=== PATIENT | male | born 1940 | race Caucasian/White ===

== ENCOUNTER → 2017-12-02 13:37 | Outpatient (CLI) | payer MEDICARE, MEDICAID, SELFPAY ==
[2017-12-02 14:02] LABS: Abs Immature Grans 0.01 k/cumm (0.0-0.09); Absolute Basophil Count 0.07 k/cumm (0.0-0.2); Absolute Eosinophil Count 0.62 k/cumm (0.0-0.7); Absolute Lymphocyte Count 1.14 k/cumm (1.2-3.4); Absolute Monocyte Count 0.69 k/cumm (0.11-0.7); Absolute Neutrophil Count 4.34 k/cumm (1.2-6.7); HCT 38.6 % (40.0-50.0); HGB 12.3 g/dL (13.5-17.5); Immature Grans % 0.1; Lymphocytes % 16.6; Mean Corp. HGB Concentration 31.9 g/dL (32.0-36.0); Mean Corpuscular Hemoglobin 29.4 pg (27.0-33.0); Mean Corpuscular Volume 92.3 fL (80-95); Mean Platelet Volume 11.7 fL (8.0-11.0); Neutrophils % 63.3; Platelet Count 194 x1000/uL (130-400); RBC 4.18 m/cumm (4.50-6.00); RBC Distribution Width 15.4 % (11.8-14.1); White Blood Cell Count 6.87 k/cumm (4.4-10.8)
[2017-12-02 14:55] LABS: Iron 43 ug/dL (50-175); Total Iron Binding Capacity 309 ug/dL (250-450); Transferrin Sat 14 % (20-55)
[2017-12-02 15:08] LABS: Ferritin 33 ng/mL (8-388)
== END ==
PROVIDERS: PCP Emergency Medicine; Visit Provider Nurse Practitioner Psychiatric/Mental Health
DX: D64.9 Anemia, unspecified (principal); F20.9 Schizophrenia, unspecified; Z79.899 Other long term (current) drug therapy
CPT/HCPCS: 36415; 82728; 83540; 83550; 85025

== ENCOUNTER 2017-12-30 13:53 | Outpatient (CLI) | payer MEDICARE, MEDICAID, SELFPAY ==
[2017-12-30 14:54] LABS: Abs Immature Grans 0.02 k/cumm (0.0-0.09); Absolute Basophil Count 0.06 k/cumm (0.0-0.2); Absolute Eosinophil Count 0.66 k/cumm (0.0-0.7); Absolute Lymphocyte Count 1.24 k/cumm (1.2-3.4); Absolute Monocyte Count 0.77 k/cumm (0.11-0.7); Absolute Neutrophil Count 3.81 k/cumm (1.2-6.7); Basophils % 0.9; Eosinophils % 10.1; HCT 39.9 % (40.0-50.0); HGB 12.4 g/dL (13.5-17.5); Immature Grans % 0.3; Lymphocytes % 18.9; Mean Corp. HGB Concentration 31.1 g/dL (32.0-36.0); Mean Corpuscular Hemoglobin 29.1 pg (27.0-33.0); Mean Corpuscular Volume 93.7 fL (80-95); Mean Platelet Volume 12.3 fL (8.0-11.0); Monocytes % 11.7; Neutrophils % 58.1; Platelet Count 194 x1000/uL (130-400); RBC 4.26 m/cumm (4.50-6.00); RBC Distribution Width 15.4 % (11.8-14.1); White Blood Cell Count 6.56 k/cumm (4.4-10.8)
== END 2017-12-30 14:13 ==
PROVIDERS: Nurse Practitioner Family; PCP Emergency Medicine; Visit Provider Nurse Practitioner Psychiatric/Mental Health
DX: F20.9 Schizophrenia, unspecified (principal); Z79.899 Other long term (current) drug therapy
CPT/HCPCS: 85025

== ENCOUNTER 2018-01-27 13:32 | Outpatient (CLI) | payer MEDICARE, MEDICAID, SELFPAY ==
[2018-01-27 14:00] LABS: Abs Immature Grans 0.02 k/cumm (0.0-0.09); Absolute Basophil Count 0.05 k/cumm (0.0-0.2); Absolute Eosinophil Count 0.47 k/cumm (0.0-0.7); Absolute Lymphocyte Count 0.97 k/cumm (1.2-3.4); Absolute Monocyte Count 0.84 k/cumm (0.11-0.7); Basophils % 0.6; Eosinophils % 5.4; HCT 40.2 % (40.0-50.0); HGB 12.9 g/dL (13.5-17.5); Immature Grans % 0.2; Lymphocytes % 11.1; Mean Corp. HGB Concentration 32.1 g/dL (32.0-36.0); Mean Corpuscular Hemoglobin 30.1 pg (27.0-33.0); Mean Corpuscular Volume 93.9 fL (80-95); Mean Platelet Volume 11.8 fL (8.0-11.0); Monocytes % 9.6; Neutrophils % 73.1; Platelet Count 179 x1000/uL (130-400); RBC 4.28 m/cumm (4.50-6.00); RBC Distribution Width 14.9 % (11.8-14.1); White Blood Cell Count 8.75 k/cumm (4.4-10.8)
== END 2018-01-27 13:52 ==
PROVIDERS: PCP Emergency Medicine; Visit Provider Nurse Practitioner Family
DX: F20.9 Schizophrenia, unspecified (principal); Z79.899 Other long term (current) drug therapy
CPT/HCPCS: 36415; 85025

== ENCOUNTER 2018-02-24 13:43 | Outpatient (CLI) | payer MEDICARE, MEDICAID, SELFPAY ==
[2018-02-24 14:04] LABS: Abs Immature Grans 0.01 k/cumm (0.0-0.09); Absolute Basophil Count 0.06 k/cumm (0.0-0.2); Absolute Eosinophil Count 0.51 k/cumm (0.0-0.7); Absolute Lymphocyte Count 1.16 k/cumm (1.2-3.4); Absolute Monocyte Count 0.76 k/cumm (0.11-0.7); Absolute Neutrophil Count 4.51 k/cumm (1.2-6.7); Basophils % 0.9; Eosinophils % 7.3; HCT 39.7 % (40.0-50.0); HGB 12.7 g/dL (13.5-17.5); Immature Grans % 0.1; Lymphocytes % 16.5; Mean Corpuscular Hemoglobin 30.1 pg (27.0-33.0); Mean Corpuscular Volume 94.1 fL (80-95); Mean Platelet Volume 11.7 fL (8.0-11.0); Monocytes % 10.8; Neutrophils % 64.4; Platelet Count 196 x1000/uL (130-400); RBC 4.22 m/cumm (4.50-6.00); RBC Distribution Width 14.8 % (11.8-14.1); White Blood Cell Count 7.01 k/cumm (4.4-10.8)
[2018-02-24 15:20] LABS: Hemoglobin A1C 5.6 % (4.5-6.2)
[2018-02-24 15:34] LABS: Ferritin 24 ng/mL (8-388)
== END 2018-02-24 14:03 ==
PROVIDERS: PCP Emergency Medicine; Visit Provider Nurse Practitioner Psychiatric/Mental Health
DX: E11.9 Type 2 diabetes mellitus without complications (principal); D64.9 Anemia, unspecified; F20.9 Schizophrenia, unspecified; Z79.899 Other long term (current) drug therapy
CPT/HCPCS: 36415; 82728; 83036; 85025

== ENCOUNTER → 2018-03-19 09:45 | Outpatient (BNVA) | payer MEDICARE, MEDICAID, SELFPAY | PROVIDERS: PCP Emergency Medicine; Visit Provider Internal Medicine Cardiovascular Disease | DX: I25.810 Atherosclerosis of coronary artery bypass graft(s) without angina pectoris (principal); I25.2 Old myocardial infarction; E11.9 Type 2 diabetes mellitus without complications; Z79.84 Long term (current) use of oral hypoglycemic drugs; J44.9 Chronic obstructive pulmonary disease, unspecified; F17.210 Nicotine dependence, cigarettes, uncomplicated; I25.5 Ischemic cardiomyopathy; I73.9 Peripheral vascular disease, unspecified | CPT/HCPCS: 99214 ==

== ENCOUNTER 2018-03-24 14:00 | Outpatient (CLI) | payer MEDICARE, MEDICAID, SELFPAY ==
[2018-03-24 14:37] LABS: Abs Immature Grans 0.02 k/cumm (0.0-0.09); Absolute Basophil Count 0.06 k/cumm (0.0-0.2); Absolute Eosinophil Count 0.63 k/cumm (0.0-0.7); Absolute Monocyte Count 0.77 k/cumm (0.11-0.7); Absolute Neutrophil Count 4.37 k/cumm (1.2-6.7); Basophils % 0.8; Eosinophils % 8.8; HCT 40.1 % (40.0-50.0); HGB 12.8 g/dL (13.5-17.5); Immature Grans % 0.3; Lymphocytes % 18.2; Mean Corp. HGB Concentration 31.9 g/dL (32.0-36.0); Mean Corpuscular Volume 94.1 fL (80-95); Mean Platelet Volume 11.8 fL (8.0-11.0); Monocytes % 10.8; Neutrophils % 61.1; Platelet Count 202 x1000/uL (130-400); RBC 4.26 m/cumm (4.50-6.00); RBC Distribution Width 14.3 % (11.8-14.1); White Blood Cell Count 7.15 k/cumm (4.4-10.8)
== END 2018-03-24 14:20 ==
PROVIDERS: PCP Emergency Medicine; Visit Provider Nurse Practitioner Psychiatric/Mental Health
DX: F20.9 Schizophrenia, unspecified (principal); Z79.899 Other long term (current) drug therapy
CPT/HCPCS: 36415; 85025

== ENCOUNTER 2018-04-22 13:30 | Outpatient (CLI) | payer MEDICARE, MEDICAID, SELFPAY ==
[2018-04-22 14:09] LABS: Abs Immature Grans 0.03 k/cumm (0.0-0.09); Absolute Basophil Count 0.03 k/cumm (0.0-0.2); Absolute Eosinophil Count 0.37 k/cumm (0.0-0.7); Absolute Lymphocyte Count 0.98 k/cumm (1.2-3.4); Absolute Monocyte Count 0.98 k/cumm (0.11-0.7); Absolute Neutrophil Count 5.83 k/cumm (1.2-6.7); Basophils % 0.4; Eosinophils % 4.5; HCT 38.1 % (40.0-50.0); HGB 12.1 g/dL (13.5-17.5); Immature Grans % 0.4; Lymphocytes % 11.9; Mean Corp. HGB Concentration 31.8 g/dL (32.0-36.0); Mean Corpuscular Hemoglobin 29.5 pg (27.0-33.0); Mean Corpuscular Volume 92.9 fL (80-95); Monocytes % 11.9; Neutrophils % 70.9; Platelet Count 278 x1000/uL (130-400); RBC Distribution Width 13.6 % (11.8-14.1); White Blood Cell Count 8.22 k/cumm (4.4-10.8)
== END 2018-04-22 13:50 ==
PROVIDERS: Nurse Practitioner Family; PCP Emergency Medicine; Visit Provider Nurse Practitioner Psychiatric/Mental Health
DX: F20.9 Schizophrenia, unspecified (principal); Z79.899 Other long term (current) drug therapy
CPT/HCPCS: 85025

== ENCOUNTER 2018-05-19 14:09 | Outpatient (CLI) | payer MEDICARE, MEDICAID, SELFPAY ==
[2018-05-19 14:55] LABS: Abs Immature Grans 0.02 k/cumm (0.0-0.09); Absolute Basophil Count 0.06 k/cumm (0.0-0.2); Absolute Eosinophil Count 0.43 k/cumm (0.0-0.7); Absolute Lymphocyte Count 1.14 k/cumm (1.2-3.4); Absolute Monocyte Count 0.47 k/cumm (0.11-0.7); Absolute Neutrophil Count 3.93 k/cumm (1.2-6.7); Eosinophils % 7.1; HCT 39.7 % (40.0-50.0); HGB 12.3 g/dL (13.5-17.5); Immature Grans % 0.3; Lymphocytes % 18.8; Mean Corpuscular Hemoglobin 28.7 pg (27.0-33.0); Mean Corpuscular Volume 92.5 fL (80-95); Mean Platelet Volume 11.2 fL (8.0-11.0); Monocytes % 7.8; Platelet Count 289 x1000/uL (130-400); RBC 4.29 m/cumm (4.50-6.00); RBC Distribution Width 14.3 % (11.8-14.1); White Blood Cell Count 6.05 k/cumm (4.4-10.8)
== END 2018-05-19 14:29 ==
PROVIDERS: PCP Emergency Medicine; Visit Provider Nurse Practitioner Psychiatric/Mental Health
DX: F20.9 Schizophrenia, unspecified (principal); Z79.899 Other long term (current) drug therapy
CPT/HCPCS: 36415; 85025

== ENCOUNTER 2018-06-23 11:32 | Outpatient (CLI) | payer MEDICARE, MEDICAID, SELFPAY ==
[2018-06-23 12:17] LABS: Abs Immature Grans 0.03 k/cumm (0.0-0.09); Absolute Basophil Count 0.03 k/cumm (0.0-0.2); Absolute Eosinophil Count 0.41 k/cumm (0.0-0.7); Absolute Lymphocyte Count 0.92 k/cumm (1.2-3.4); Absolute Monocyte Count 0.72 k/cumm (0.11-0.7); Absolute Neutrophil Count 5.57 k/cumm (1.2-6.7); Basophils % 0.4; Eosinophils % 5.3; HCT 39.7 % (40.0-50.0); HGB 12.4 g/dL (13.5-17.5); Immature Grans % 0.4; Mean Corp. HGB Concentration 31.2 g/dL (32.0-36.0); Mean Corpuscular Hemoglobin 28.8 pg (27.0-33.0); Mean Corpuscular Volume 92.3 fL (80-95); Mean Platelet Volume 11.5 fL (8.0-11.0); Monocytes % 9.4; Neutrophils % 72.5; Platelet Count 265 x1000/uL (130-400); RBC Distribution Width 15.7 % (11.8-14.1); White Blood Cell Count 7.68 k/cumm (4.4-10.8)
[2018-06-23 13:22] LABS: Anion Gap 6.1 mmol/L (3-11); BUN 17 mg/dL (7-18); CO2 32.9 mmol/L (21.0-32.0); CREATININE 1.13 mg/dL (0.70-1.30); Calcium 9.2 mg/dL (8.5-10.1); Chloride 101 mmol/L (98-107); Cholesterol 128 mg/dL (50-200); Glucose 158 mg/dL (70-100); HDL Cholesterol 34 mg/dL (40-60); LDL CHOLESTEROL 72 mg/dL (<100); Potassium 4.3 mmol/L (3.5-5.1); Sodium 140 mmol/L (136-145); Triglyceride 117 mg/dL (30-150)
[2018-06-24 11:15] LABS: PSA, Screening 1.4 ng/ml (0-6.5)
== END 2018-06-23 11:52 ==
PROVIDERS: PCP Emergency Medicine; Referring Provider Emergency Medicine; Visit Provider Nurse Practitioner Psychiatric/Mental Health
DX: F20.9 Schizophrenia, unspecified (principal); Z79.899 Other long term (current) drug therapy; E11.9 Type 2 diabetes mellitus without complications; I10 Essential (primary) hypertension; Z12.5 Encounter for screening for malignant neoplasm of prostate
CPT/HCPCS: 80048; 80061; 83721; 84153; 83036; 85025

== ENCOUNTER → 2018-06-25 12:32 | Outpatient (BNVA) | payer MEDICARE, MEDICAID, SELFPAY | PROVIDERS: PCP Emergency Medicine; Referring Provider Emergency Medicine; Visit Provider Nurse Practitioner Gerontology | DX: R39.15 Urgency of urination (principal); E11.42 Type 2 diabetes mellitus with diabetic polyneuropathy; J44.9 Chronic obstructive pulmonary disease, unspecified; Z79.84 Long term (current) use of oral hypoglycemic drugs; N39.41 Urge incontinence | CPT/HCPCS: 99215 ==

== ENCOUNTER 2018-06-25 12:52 | Outpatient (REF) | payer MEDICARE, MEDICAID, SELFPAY ==
[2018-06-25 13:21] LABS: Bilirubin Negative (Negative); Blood Negative (Negative); Clarity Clear; Glucose Negative (Negative); Ketones Negative (Negative); Leukocyte Esterase Negative (Negative); Nitrite Negative (Negative); Specific Gravity 1.015 (1.005-1.025); Urobilinogen 0.2 EU/dL (Up TO 0.2)
== END 2018-06-25 13:12 ==
LOC: LBN 12:52
PROVIDERS: PCP Emergency Medicine; Visit Provider Emergency Medicine
DX: R30.0 Dysuria (principal)
CPT/HCPCS: 99204; 81003

== ENCOUNTER 2018-07-21 13:50 | Outpatient (CLI) | payer MEDICARE, MEDICAID, SELFPAY ==
[2018-07-21 14:20] LABS: Abs Immature Grans 0.03 k/cumm (0.0-0.09); Absolute Basophil Count 0.07 k/cumm (0.0-0.2); Absolute Eosinophil Count 0.42 k/cumm (0.0-0.7); Absolute Lymphocyte Count 1.19 k/cumm (1.2-3.4); Absolute Monocyte Count 0.65 k/cumm (0.11-0.7); Absolute Neutrophil Count 4.36 k/cumm (1.2-6.7); Eosinophils % 6.3; HCT 40.3 % (40.0-50.0); HGB 12.7 g/dL (13.5-17.5); Immature Grans % 0.4; Lymphocytes % 17.7; Mean Corp. HGB Concentration 31.5 g/dL (32.0-36.0); Mean Corpuscular Hemoglobin 29.3 pg (27.0-33.0); Mean Corpuscular Volume 93.1 fL (80-95); Mean Platelet Volume 11.5 fL (8.0-11.0); Monocytes % 9.7; Neutrophils % 64.9; Platelet Count 239 x1000/uL (130-400); RBC 4.33 m/cumm (4.50-6.00); RBC Distribution Width 15.9 % (11.8-14.1); White Blood Cell Count 6.72 k/cumm (4.4-10.8)
[2018-07-21 15:16] LABS: VALPROIC ACID 48.9 ug/mL (50-100)
[2018-07-21 15:22] LABS: ALT 16 U/L (12-78); AST 20 U/L (15-37); Albumin 3.2 g/dL (3.4-5.0); Alkaline Phosphatase 86 U/L (46-116); Anion Gap 6.9 mmol/L (3-11); BUN 17 mg/dL (7-18); Bilirubin, Total 0.3 mg/dL (0.2-1.0); CO2 31.1 mmol/L (21.0-32.0); CREATININE 1.23 mg/dL (0.70-1.30); Calcium 9.1 mg/dL (8.5-10.1); Chloride 102 mmol/L (98-107); Estimated GFR 56.91 (mL/min/1.73m2); Glucose 133 mg/dL (70-100); Potassium 4.1 mmol/L (3.5-5.1); Sodium 140 mmol/L (136-145); TSH (W/Ref FT4) 1.26 uIU/mL (0.358-3.74); Total Protein 7.3 g/dL (6.4-8.2)
[2018-07-23 08:39] LABS: Clozapine 207 ng/mL (>350); Clozapine+Norclozapine Total 271 ng/mL (>450); Norclozapine 64 ng/mL
== END 2018-07-21 14:10 ==
PROVIDERS: PCP Emergency Medicine; Visit Provider Nurse Practitioner Psychiatric/Mental Health
DX: F25.0 Schizoaffective disorder, bipolar type (principal); Z79.899 Other long term (current) drug therapy; Z51.81 Encounter for therapeutic drug level monitoring
CPT/HCPCS: 36415; 80053; 80159; 80164; 84443; 85025

== ENCOUNTER 2018-08-25 13:16 | Emergency (ER) | payer MEDICARE, MEDICAID, SELFPAY ==
[2018-08-25 13:17] VITALS: BP 112/55; PULSE 89; RESP 17; TEMP 36.7; O2SAT 97
--- NOTE | 2018-08-25 13:47 | NUR.NOTE ---
Nursing Note: This assembly instructions writer assessed this patient. He was able to move all extremities with no difficulty. He had equal accounts payable lead, equal flexion and extension of his lower extremities. He has PERRLA. HE did admit to hitting his head when he fell at home. There is no noted bump on his posterior head or abrasion noted.
--- NOTE | 2018-08-25 15:20 | DI.CT_ITS ---
SYMPTOM/DIAGNOSIS: HEAD INJURY, LEGS GAVE OUT, ? C SPINE FX NONCONTRAST HEAD CT: A noncontrast examination was performed. Comparison is made with 01/07/13. The ventricles and sulci are prominent consistent with the patient's age. 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 No acute infarct, hemorrhage, midline shift or mass effect is identified. The ventricles are intact. The basilar cisterns are patent. The calvarium is intact. There is near complete opacification of the maxillary sinuses and complete opacification of the ethmoid air cells. There is mucosal thickening seen in the sphenoid sinuses and left frontal sinus. There is complete opacification of the right frontal sinus. The mastoid air cells are well pneumatized. IMPRESSION: 1. No acute intracranial process. 2. Extensive paranasal sinusitis. CERVICAL SPINE CT: Multiple contiguous axial images of the cervical spine were obtained. Sagittal and coronal reformatted images were evaluated on the Siemens workstation. There is normal alignment of the cervical spine. No acute fracture or subluxation is identified. Multi level degenerative changes are seen throughout the cervical spine. The findings do result in mild narrowing of the right neural foramen at C 2-3, C 3-4 and C 5-6. The prevertebral soft tissues are unremarkable. IMPRESSION: No acute fracture or subluxation in the cervical spine.
[2018-08-25 16:05] LABS: Abs Immature Grans 0.01 k/cumm (0.0-0.09); Absolute Basophil Count 0.03 k/cumm (0.0-0.2); Absolute Eosinophil Count 0.06 k/cumm (0.0-0.7); Absolute Lymphocyte Count 0.67 k/cumm (1.2-3.4); Absolute Monocyte Count 0.82 k/cumm (0.11-0.7); Absolute Neutrophil Count 3.96 k/cumm (1.2-6.7); Basophils % 0.5; Eosinophils % 1.1; HCT 35.9 % (40.0-50.0); HGB 11.4 g/dL (13.5-17.5); Immature Grans % 0.2; Lymphocytes % 12.1; Mean Corp. HGB Concentration 31.8 g/dL (32.0-36.0); Mean Corpuscular Hemoglobin 28.9 pg (27.0-33.0); Mean Corpuscular Volume 90.9 fL (80-95); Mean Platelet Volume 10.5 fL (8.0-11.0); Monocytes % 14.8; Neutrophils % 71.3; Platelet Count 214 x1000/uL (130-400); RBC 3.95 m/cumm (4.50-6.00); RBC Distribution Width 14.9 % (11.8-14.1); White Blood Cell Count 5.55 k/cumm (4.4-10.8)
[2018-08-25 16:12] LABS: BUN 17 mg/dL (7-18); Calcium 8.8 mg/dL (8.5-10.1); Chloride 102 mmol/L (98-107); Potassium 4.1 mmol/L (3.5-5.1)
[2018-08-25 16:18] LABS: Bilirubin Negative (Negative); Blood Negative (Negative); Clarity Clear; Glucose Negative (Negative); Ketones Negative (Negative); Leukocyte Esterase Negative (Negative); Nitrite Negative (Negative); Urobilinogen 0.2 EU/dL (Up TO 0.2)
[2018-08-25 16:21] LABS: Anion Gap 9.2 mmol/L (3-11); CO2 28.8 mmol/L (21.0-32.0); CREATININE 1.11 mg/dL (0.70-1.30); Glucose 90 mg/dL (70-100); Sodium 140 mmol/L (136-145)
--- NOTE | 2018-08-25 16:52 | ED.GENADUL_ITS ---
Discharge Plan Disposition Patient Disposition: HOME Condition: Good Discharge Details Chief Complaint: Orthopedic Clinical Impression: Closed head injury, Leg weakness Primary Care Provider: João Metz ED Provider: Shama Glover Home Meds and New Rx's Prescriptions: Continued ketoconazole 2 % cream 1 applic TP DAILY RF: 0 polysaccharide iron complex 150 mg iron capsule 150 mg PO DAILY Qty: 90 RF: 3 polyethylene glycol 3350 [Miralax] 17 gram powder in packet 17 g PO DAILY Qty: 1000 RF: 6 blood-glucose meter 1 EACH misc 1 ea Miscellaneous ONCE Qty: 1 RF: 0 OneTouch Ultra Test 1 EACH strip 1 ea Miscellaneous DAILY Qty: 90 RF: 0 blood-glucose meter [OneTouch UltraMini] 1 EACH kit 1 ea Miscellaneous DAILY Qty: 1 RF: 0 albuterol sulfate [Ventolin HFA] 8 GM HFA aerosol inhaler 2 puff Inhalation Q4H PRN Qty: 1 RF: 4 lancets 1 EACH misc 1 ea Miscellaneous DAILY Qty: 100 RF: 3 lancets [OneTouch UltraSoft Lancets] 1 EACH misc 1 ea Miscellaneous DAILY Qty: 90 RF: 3 acetaminophen [Acetaminophen Extra Strength] 500 MG tablet 1,000 mg PO Q6H PRN Qty: 360 RF: 4 multivitamin [Daily Multiple] 1 EACH tablet 1 ea PO DAILY Qty: 90 RF: 3 pantoprazole 40 MG tablet,delayed release (DR/EC) 1 tab PO DAILY Qty: 90 RF: 4 triamcinolone acetonide 80 GM ointment 80 gm Topical BID Qty: 1 RF: 2 metformin 500 MG tablet 500 mg PO BID Qty: 180 RF: 3 furosemide [Lasix] 20 MG tablet 1 tab PO DAILY Qty: 90 RF: 4 clozapine 100 mg tablet 100 mg PO DAILY RF: 0 Blood Glucose Test strip 1 ea Miscellaneous DAILY Qty: 100 RF: 4 docusate sodium [Colace] 100 mg capsule 200 mg PO BID Qty: 180 RF: 4 metoprolol succinate 50 mg tablet extended release 24 hr 50 mg PO DAILY Qty: 90 RF: 4 atorvastatin [Lipitor] 80 mg tablet 80 mg PO HS Qty: 90 RF: 3 ferrous sulfate 325 mg (65 mg iron) tablet 325 mg PO DAILY Qty: 30 RF: 4 cilostazol 100 mg tablet 50 mg PO BID Qty: 90 RF: 3 lisinopril 5 mg tablet 5 mg PO DAILY Qty: 90 RF: 3 tamsulosin [Flomax] 0.4 mg capsule 0.4 mg PO DAILY Qty: 90 RF: 3 nitroglycerin [Nitrostat] 0.4 mg tablet, sublingual 0.4 mg Sublingual PRN Qty: 25 RF: 4 docusate sodium [Colace] 100 mg capsule 100 mg PO DAILY Qty: 90 RF: 3 aspirin [Ecotrin Low Strength] 81 mg tablet,delayed release (DR/EC) 81 mg PO DAILY Qty: 90 RF: 3 divalproex 250 MG tablet,delayed release (DR/EC) 1,000 mg PO HS RF: 0 Discharge Instructions Instructions: Head Injury (ED), Weakness (ED) Additional Instructions: Drink plenty of fluids and get plenty of rest. Call your primary care doctor today to schedule a follow-up appointment for reevaluation. Return immediately to the emergency department with any worsening or new concerning symptoms. Discharge Data Discharge Date/Time-TO BE ENTERED AT DEPARTURE: 08/25/18 19:43 Discharge Physician: Shama Glover Medical Decision Making 78-year-old male with a history of bipolar disorder, CAD, COPD, diabetes, hypertension, schizophrenia who presents the ED with complaint of head injury today. Patient states he was walking when his legs gave out and hit the back of his head on a piece of furniture. No LOC, vomiting, headache or blurry vision. Patient denies any complaints on arrival to the ED per EMS and states he was unsure why he was here as he feels fine. Vitals normal on arrival. No evidence of head trauma, chest or abdominal trauma or extremity trauma. No C-spine/T-spine/L-spine tenderness. No evidence of extremity injury. Chest and abdomen nontender. No focal deficits. Distal pulses intact. Considering patient's age and history, will check screening labs, urinalysis and obtain CT head and cervical spine. 1645 --labs and imaging reviewed and unremarkable. CT head/C-spine negative for acute findings. EKG noted a rate of 82 and sinus with no acute ST findings and no significant change from previous. Pt states he is feeling better requesting to go home. Patient was able to ambulate with his cane in the emergency department which is his baseline. Patient instructed to follow-up with his primary care doctor for reevaluation and return here if worse. Medical Records Medical records reviewed: Yes I reviewed the patient's medical records. Imaging Data Radiologic Study: Radiologist's impression: CT Head Without Contrast EXAM DATE/TIME: 08/25/2018 3:22 PM FINDINGS: Brain: There is a 7 mm old lacunar infarct involving the genu of the right internal capsule and adjacent lentiform nucleus. This appears to extend into the body of the caudate nucleus. There is also a 4 mm old lacunar infarct in the right lentiform nucleus. Ventricles: Normal. No ventriculomegaly. Bones/joints: Unremarkable. No acute fracture. Sinuses: There is severe mucosal thickening in both maxillary sinuses as well as the ethmoidal sinuses. Frontal sinuses are also show severe mucosal thickening worse on the right side Mastoid air cells: Visualized mastoid air cells are unremarkable. No mastoid effusion. Soft tissues: Unremarkable. IMPRESSION: 1. No evidence of an acute infarct or acute adrenal injury. 2. 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 3. Severe maxillary and ethmoidal sinusitis and frontal sinusitis CT Cervical Spine Without Contrast EXAM DATE/TIME: 08/25/2018 3:22 PM FINDINGS: C1-C7 are seen without evidence of an acute fracture subluxation or prevertebral soft tissue swelling. At C2-3 there is mild narrowing of the right neural foramen hypertrophied uncovertebral joint. At C3-4 There is moderate loss of disc height with mild subchondral sclerosis. There is minimal narrowing of the right neural foramen hypertrophied uncovertebral joint. At C4-5 There is prominent hypertrophy of the right facet joint at no significant stenosis At C5-6 There is prominent hypertrophy of the right facet joint minimally narrowing the right neural foramen. At C6-7 there is a mild broad disc osteophyte complex minimally narrowing the neural foramina. Impression: Multilevel degenerative changes but no acute fracture or subluxation Lab Data Lab results reviewed: Yes I reviewed the patient's lab results. Laboratory Tests Range/Units 08/25/18 08/25/18 08/25/18 15:58 15:58 16:10 WBC (4.4-10.8) k/cumm 5.55 RBC (4.50-6.00) m/cumm 3.95 L Hgb (13.5-17.5) g/dL 11.4 L Hct (40.0-50.0) % 35.9 L MCV (80-95) fL 90.9 MCH (27.0-33.0) pg 28.9 MCHC (32.0-36.0) g/dL 31.8 L RDW (11.8-14.1) % 14.9 H Plt Count (130-400) x1000/uL 214 MPV (8.0-11.0) fL 10.5 Immature Gran % 0.2 Neutrophils % 71.3 Lymphocytes % 12.1 Monocytes % 14.8 Eosinophils % 1.1 Basophils % 0.5 Absolute Neutrophils (1.2-6.7) k/cumm 3.96 Absolute Lymphocytes (1.2-3.4) k/cumm 0.67 L Absolute Monocytes (0.11-0.7) k/cumm 0.82 H Absolute Eosinophils (0.0-0.7) k/cumm 0.06 Absolute Basophils (0.0-0.2) k/cumm 0.03 Sodium (136-145) mmol/L 140 Potassium (3.5-5.1) mmol/L 4.1 Chloride (98-107) mmol/L 102 Carbon Dioxide (21.0-32.0) mmol/L 28.8 Anion Gap (3-11) mmol/L 9.2 BUN (7-18) mg/dL 17 Creatinine (0.70-1.30) mg/dL 1.11 Estimated GFR/1.73 m2 (mL/min/1.73m2) >= 60.00 Glucose (70-100) mg/dL 90 Calcium (8.5-10.1) mg/dL 8.8 Urine Color (Yellow) Yellow Urine Clarity Clear Urine pH (5-8) 6.0 Ur Specific Powell (1.005-1.025) 1.010 Urine Protein (Negative) mg/dL Negative Urine Ketones (Negative) mg/dL Negative Urine Blood (Negative) Negative Urine Nitrite (Negative) Negative Urine Bilirubin (Negative) Negative Urine Urobilinogen (Up TO 0.2) EU/dL 0.2 Ur Leukocyte Esterase (Negative) Negative Urine Glucose (Negative) mg/dL Negative ECG Data Attestation: I personally reviewed and interpreted this ECG (s) as follows: Interpretation: Rate of 82, sinus, less than [address] depression in 1 and V5 which is been seen in previous. No acute ST elevation. QTc 418. QRS 110. HPI General Mode of arrival: EMS . Date/Time Provider Initiated Documentation: 08/25/18 13:44 . Limitations to Documentation: no limitations . Information obtained by: patient . HPI Narrative: Patient is a 78-year-old male with a history of schizophrenia, diabetes, COPD, CAD, anemia and peripheral vascular disease who presents the ED status post fall. Patient states he was ambulating when he felt like his legs gave out and he fell backward and hit the back of his head on a piece of furniture. He denies LOC, vomiting, headache, blurry vision. Patient denies any rib pain, back pain, chest pain, abdominal pain or extremity injury or pain. Patient states he feels fine at this time. Related Data Home Medications Medication Instructions Recorded Confirmed blood-glucose meter #1 ea 05/18/14 08/25/18 OneTouch Ultra Test #90 strip 05/19/14 08/25/18 blood-glucose meter [OneTouch #1 kit 06/14/14 08/25/18 UltraMini] albuterol sulfate [Ventolin HFA] 2 puff INHALATION Q4H PRN #1 ea 08/10/14 08/25/18 divalproex 1,000 mg PO HS 05/04/16 08/25/18 lancets #100 ea 05/20/17 08/25/18 lancets [OneTouch UltraSoft #90 ea 05/30/17 08/25/18 Lancets] acetaminophen [Acetaminophen Extra 1,000 mg PO Q6H PRN #360 tab-cap 07/04/17 08/25/18 Strength] multivitamin [Daily Multiple] 1 ea PO DAILY #90 tab-cap 10/07/17 08/25/18 pantoprazole 1 tab PO DAILY #90 tab-cap 10/17/17 08/25/18 triamcinolone acetonide 80 gm TOPICAL BID #1 tub 11/11/17 08/25/18 furosemide [Lasix] 1 tab PO DAILY #90 tab 11/14/17 08/25/18 metformin 500 mg PO BID #180 tab-cap 11/14/17 08/25/18 ketoconazole 2 % topical cream 1 applic TP DAILY 02/10/18 08/25/18 polysaccharide iron complex 150 mg 150 mg PO DAILY #90 cap 02/10/18 08/25/18 iron capsule clozapine 100 mg tablet 100 mg PO DAILY tab-cap 03/19/18 08/25/18 blood sugar diagnostic strips #100 strip 05/26/18 08/25/18 polyethylene glycol 3350 17 gram 17 g PO DAILY #1000 gm 06/09/18 08/25/18 oral powder packet docusate sodium 100 mg capsule 200 mg PO BID #180 cap 06/11/18 08/25/18 metoprolol succinate ER 50 mg 50 mg PO DAILY #90 tab 06/18/18 08/25/18 tablet,extended release 24 hr atorvastatin 80 mg tablet 80 mg PO HS #90 tab-cap 06/19/18 08/25/18 ferrous sulfate 325 mg (65 mg 325 mg PO DAILY #30 tab 07/07/18 08/25/18 iron) tablet cilostazol 100 mg tablet 50 mg PO BID #90 tab-cap 07/14/18 08/25/18 lisinopril 5 mg tablet 5 mg PO DAILY #90 tab-cap 07/14/18 08/25/18 tamsulosin 0.4 mg capsule 0.4 mg PO DAILY #90 cap 07/16/18 08/25/18 nitroglycerin 0.4 mg sublingual 0.4 mg SUBLINGUAL PRN #25 tab 07/20/18 08/25/18 tablet aspirin 81 mg tablet,delayed 81 mg PO DAILY #90 tab 08/21/18 08/25/18 release docusate sodium 100 mg capsule 100 mg PO DAILY #90 cap 08/21/18 08/25/18 Previous Rx's Medication Instructions Recorded lancets #100 ea 05/20/17 lancets [OneTouch UltraSoft #90 ea 05/30/17 Lancets] acetaminophen [Acetaminophen Extra 1,000 mg PO Q6H PRN #360 tab-cap 07/04/17 Strength] multivitamin [Daily Multiple] 1 ea PO DAILY #90 tab-cap 10/07/17 pantoprazole 1 tab PO DAILY #90 tab-cap 10/17/17 triamcinolone acetonide 80 gm TOPICAL BID #1 tub 11/11/17 furosemide [Lasix] 1 tab PO DAILY #90 tab 11/14/17 metformin 500 mg PO BID #180 tab-cap 11/14/17 polysaccharide iron complex 150 mg 150 mg PO DAILY #90 cap 02/10/18 iron capsule blood sugar diagnostic strips #100 strip 05/26/18 polyethylene glycol 3350 17 gram 17 g PO DAILY #1000 gm 06/09/18 oral powder packet docusate sodium 100 mg capsule 200 mg PO BID #180 cap 06/11/18 metoprolol succinate ER 50 mg 50 mg PO DAILY #90 tab 06/18/18 tablet,extended release 24 hr atorvastatin 80 mg tablet 80 mg PO HS #90 tab-cap 06/19/18 ferrous sulfate 325 mg (65 mg 325 mg PO DAILY #30 tab 07/07/18 iron) tablet cilostazol 100 mg tablet 50 mg PO BID #90 tab-cap 07/14/18 lisinopril 5 mg tablet 5 mg PO DAILY #90 tab-cap 07/14/18 tamsulosin 0.4 mg capsule 0.4 mg PO DAILY #90 cap 07/16/18 nitroglycerin 0.4 mg sublingual 0.4 mg SUBLINGUAL PRN #25 tab 07/20/18 tablet aspirin 81 mg tablet,delayed 81 mg PO DAILY #90 tab 08/21/18 release docusate sodium 100 mg capsule 100 mg PO DAILY #90 cap 08/21/18 Allergies Allergy/AdvReac Type Severity Reaction Status Date / Time egg Allergy Unknown Verified 06/09/18 12:59 meperidine HCl [From Demerol] Allergy Unknown Verified 06/09/18 12:59 meperidine AdvReac Intermediate HYPERACTIVE Verified 06/09/18 12:59 acetaminophen AdvReac Mild HEAD AND Verified 06/09/18 12:59 CHEST CONGESTION General Stated Complaint: Orthopedic KIMBERLEE: 3 Review of Systems Review of Systems All systems reviewed & are unremarkable except as noted in HPI and below Constitutional Reports as per HPI, Denies chills and Denies fever(s) Eyes Denies blurry vision ENT Denies dizziness, Denies sore throat and Denies throat swelling Cardiovascular Denies chest pain and Denies dyspnea Respiratory Denies cough and Denies dyspnea Gastrointestinal Denies abdominal pain, Denies diarrhea and Denies vomiting Genitourinary Denies hematuria and Denies dysuria Musculoskeletal Denies back pain and Denies numbness Integumentary/Breasts Denies lesions and Denies rash Neurologic Denies dizziness, Denies focal weakness and Denies numbness Allergic/Immunologic Denies throat swelling [facility] Medical History Total urinary incontinence (Acute 12/02/07) Smoker (Acute) Schizophrenia (Acute 10/19/13) Right leg claudication (Acute 09/06/14) Peripheral vascular disease (Acute 12/02/07) Peripheral neuralgia (Acute 12/02/07) 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) Non-compliance (Acute 10/19/13) Left leg claudication (Acute 09/06/14) Diabetes mellitus (Acute) Chronic obstructive lung disease (Acute 12/02/07) Cataract (Acute) Coronary atherosclerosis of [place] coronary vessel (Acute 12/02/07) Atherosclerosis of [place] coronary artery (Acute 12/02/07) Anemia (Acute 03/11/12) Threatening behavior (Active 10/23/12) Surgical History Appendectomy Cholecystectomy Colonoscopy - MAC Coronary Artery Bypass [place] (CABG) HERNIA REPAIR Social History Smoking/Tobacco Use Status: Current every day Drug use: Never Do you feel safe at home: Yes Do you feel safe in your relationship?: Yes Exam Const General: cooperative, healthy appearing and no acute distress HENMT Head: normal to inspection Face and sinus: normal facial exam Eyes General: appearance normal, both eyes and all related structures Pupils: PERRL EOM: EOM intact bilaterally Neck Neck: normal visual inspection and No submandibular swelling Lymphatic: no lymphadenopathy noted Chest Chest: normal inspection of the chest and no tenderness Resp Effort & Inspection: normal respiratory effort and able to speak in complete sentences Auscultation: clear to auscultation bilaterally Cardio Rate: regular rate Rhythm: regular rhythm GI Inspection: normal to inspection Palpation: soft, not firm, not rigid and nontender Auscultation: normal bowel sounds Male General Exam: Yes normal external exam Back/Spine/Pelvis Cervical Spine: No cervical spinal tenderness Thoracic/Lumbar Spine: thoracic and lumbar spine normal to inspection, No thoracic spinal tenderness and No lumbar spinal tenderness Pelvis: no pain with anterior-posterior compression Skin General skin exam: no rashes or lesions noted Neuro General: alert, awake and oriented x3 Cranial Nerves: CN's II-XI intact bilaterally Cognition: normal cognition Speech: speech normal Motor: muscle tone normal throughout and strength 5/5 throughout Sensory Exam: no sensory deficits noted DTR's: Rt Patellar: 1+, Lt Patellar: 1+, Rt Ankle: 1+ and Lt Ankle: 1+ Plantar Reflexes: Equivocal: bilateral Extrem General: normal to inspection, full ROM, no edema and other (no pain with ROM or tenderness to palpation of b/l UE/LE) Psych Appearance: grossly normal Mental Status: mental status grossly normal Speech and Movement: speech and movement normal Affect: normal affect Course Vital Signs Temperature 98.1 F 08/25/18 13:17 Pulse 89 08/25/18 13:17 Respiratory Rate 17 08/25/18 13:17 Blood Pressure 112/55 L 08/25/18 13:17 Pulse Oximetry 97 08/25/18 13:17 Temperature 98.1 F 08/25/18 13:17 Temperature Source Temporal Artery Scan 08/25/18 13:17 Pulse 89 08/25/18 13:17 Respiratory Rate 17 08/25/18 13:17 Respiratory Effort Non-Labored 08/25/18 13:20 Blood Pressure 112/55 L 08/25/18 13:17 Blood Pressure Position Supine 08/25/18 13:17 Pulse Oximetry 97 08/25/18 13:17 Oxygen Delivery Method Room Air 08/25/18 13:17 Oxygen Flow Rate 0 08/25/18 13:17 Pain Level 0 08/25/18 14:41 Lab/Test Results Lab/Test Results: Laboratory Tests Range/Units 08/25/18 08/25/18 08/25/18 15:58 15:58 16:10 WBC (4.4-10.8) k/cumm 5.55 RBC (4.50-6.00) m/cumm 3.95 L Hgb (13.5-17.5) g/dL 11.4 L Hct (40.0-50.0) % 35.9 L MCV (80-95) fL 90.9 MCH (27.0-33.0) pg 28.9 MCHC (32.0-36.0) g/dL 31.8 L RDW (11.8-14.1) % 14.9 H Plt Count (130-400) x1000/uL 214 MPV (8.0-11.0) fL 10.5 Immature Gran % 0.2 Neutrophils % 71.3 Lymphocytes % 12.1 Monocytes % 14.8 Eosinophils % 1.1 Basophils % 0.5 Absolute Neutrophils (1.2-6.7) k/cumm 3.96 Absolute Lymphocytes (1.2-3.4) k/cumm 0.67 L Absolute Monocytes (0.11-0.7) k/cumm 0.82 H Absolute Eosinophils (0.0-0.7) k/cumm 0.06 Absolute Basophils (0.0-0.2) k/cumm 0.03 Sodium (136-145) mmol/L 140 Potassium (3.5-5.1) mmol/L 4.1 Chloride (98-107) mmol/L 102 Carbon Dioxide (21.0-32.0) mmol/L 28.8 Anion Gap (3-11) mmol/L 9.2 BUN (7-18) mg/dL 17 Creatinine (0.70-1.30) mg/dL 1.11 Estimated GFR/1.73 m2 (mL/min/1.73m2) >= 60.00 Glucose (70-100) mg/dL 90 Calcium (8.5-10.1) mg/dL 8.8 Urine Color (Yellow) Yellow Urine Clarity Clear Urine pH (5-8) 6.0 Ur Specific Powell (1.005-1.025) 1.010 Urine Protein (Negative) mg/dL Negative Urine Ketones (Negative) mg/dL Negative Urine Blood (Negative) Negative Urine Nitrite (Negative) Negative Urine Bilirubin (Negative) Negative Urine Urobilinogen (Up TO 0.2) EU/dL 0.2 Ur Leukocyte Esterase (Negative) Negative Urine Glucose (Negative) mg/dL Negative
--- NOTE | 2018-08-25 17:03 | DI.VRAD_ITS ---
EXAM: CT Head Without Contrast EXAM DATE/TIME: 08/25/2018 3:22 PM CLINICAL HISTORY: 78 years old, male; Injury or trauma; Fall; Initial encounter; Blunt trauma TECHNIQUE: Imaging protocol: Axial computed tomography images of the head/brain without contrast. Coronal and sagittal reformatted images were created and reviewed. COMPARISON: CT HEAD WITHOUT CONTRAST 01/07/2013 12:57 PM FINDINGS: Brain: There is a 7 mm old lacunar infarct involving the genu of the right internal capsule and adjacent lentiform nucleus. This appears to extend into the body of the caudate nucleus. There is also a 4 mm old lacunar infarct in the right lentiform nucleus. Ventricles: Normal. No ventriculomegaly. Bones/joints: Unremarkable. No acute fracture. Sinuses: There is severe mucosal thickening in both maxillary sinuses as well as the ethmoidal sinuses. Frontal sinuses are also show severe mucosal thickening worse on the right side Mastoid air cells: Visualized mastoid air cells are unremarkable. No mastoid effusion. Soft tissues: Unremarkable. IMPRESSION: 1. No evidence of an acute infarct or acute adrenal injury. 2. 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 3. Severe maxillary and ethmoidal sinusitis and frontal sinusitis EXAM: CT Cervical Spine Without Contrast EXAM DATE/TIME: 08/25/2018 3:22 PM CLINICAL HISTORY: 78 years old, male; Injury or trauma; Fall; Initial encounter; Blunt trauma TECHNIQUE: Imaging protocol: Axial computed tomography images of the cervical spine without contrast. Coronal and sagittal reformatted images were created and reviewed. COMPARISON: CT HEAD WITHOUT CONTRAST 01/07/2013 12:57 PM FINDINGS: C1-C7 are seen without evidence of an acute fracture subluxation or prevertebral soft tissue swelling. At C2-3 there is mild narrowing of the right neural foramen hypertrophied uncovertebral joint. At C3-4 There is moderate loss of disc height with mild subchondral sclerosis. There is minimal narrowing of the right neural foramen hypertrophied uncovertebral joint. At C4-5 There is prominent hypertrophy of the right facet joint at no significant stenosis At C5-6 There is prominent hypertrophy of the right facet joint minimally narrowing the right neural foramen. At C6-7 there is a mild broad disc osteophyte complex minimally narrowing the neural foramina. Impression: Multilevel degenerative changes but no acute fracture or subluxation Dictated and Authenticated by: Rudy Trejo MD. Ordering:PATRICIA Sesay MD
== END 2018-08-25 19:43 | disposition home or self-care (01) ==
PROVIDERS: Emergency Provider Physician Assistant; PCP Emergency Medicine
DX: S09.90XA Unspecified injury of head, initial encounter (principal); R53.1 Weakness; J01.00 Acute maxillary sinusitis, unspecified; J01.10 Acute frontal sinusitis, unspecified; J44.9 Chronic obstructive pulmonary disease, unspecified; F17.210 Nicotine dependence, cigarettes, uncomplicated; I10 Essential (primary) hypertension; E11.9 Type 2 diabetes mellitus without complications; W01.190A Fall on same level from slipping, tripping and stumbling with subsequent striking against furniture, initial encounter
CPT/HCPCS: 36415; 80048; 93005; 99285; 70450; 72125; 81003; 85025; 93010

== ENCOUNTER → 2018-09-01 13:02 | Outpatient (BNVA) | payer MEDICARE, MEDICAID, SELFPAY | PROVIDERS: PCP Emergency Medicine; Visit Provider Nurse Practitioner Gerontology | DX: R39.9 Unspecified symptoms and signs involving the genitourinary system (principal) | CPT/HCPCS: 81003; 99213 ==

== ENCOUNTER 2018-09-25 13:15 | Outpatient (CLI) | payer MEDICARE, MEDICAID, SELFPAY ==
[2018-09-25 13:45] LABS: Abs Immature Grans 0.03 k/cumm (0.0-0.09); Absolute Basophil Count 0.04 k/cumm (0.0-0.2); Absolute Eosinophil Count 0.27 k/cumm (0.0-0.7); Absolute Lymphocyte Count 1.19 k/cumm (1.2-3.4); Absolute Monocyte Count 0.74 k/cumm (0.11-0.7); Absolute Neutrophil Count 4.31 k/cumm (1.2-6.7); Basophils % 0.6; Eosinophils % 4.1; HCT 36.4 % (40.0-50.0); HGB 11.2 g/dL (13.5-17.5); Immature Grans % 0.5; Lymphocytes % 18.1; Mean Corp. HGB Concentration 30.8 g/dL (32.0-36.0); Mean Corpuscular Hemoglobin 27.9 pg (27.0-33.0); Mean Corpuscular Volume 90.8 fL (80-95); Mean Platelet Volume 10.9 fL (8.0-11.0); Monocytes % 11.2; Neutrophils % 65.5; Platelet Count 240 x1000/uL (130-400); RBC 4.01 m/cumm (4.50-6.00); RBC Distribution Width 15.4 % (11.8-14.1); White Blood Cell Count 6.58 k/cumm (4.4-10.8)
== END 2018-09-25 13:35 ==
PROVIDERS: PCP Emergency Medicine; Visit Provider Nurse Practitioner Psychiatric/Mental Health
DX: F20.9 Schizophrenia, unspecified (principal); Z79.899 Other long term (current) drug therapy
CPT/HCPCS: 36415; 85025

== ENCOUNTER 2018-10-26 11:01 | Outpatient (CLI) | payer MEDICARE, MEDICAID, SELFPAY ==
[2018-10-26 11:45] LABS: Abs Immature Grans 0.02 k/cumm (0.0-0.09); Absolute Basophil Count 0.06 k/cumm (0.0-0.2); Absolute Lymphocyte Count 1.06 k/cumm (1.2-3.4); Absolute Monocyte Count 0.62 k/cumm (0.11-0.7); Absolute Neutrophil Count 3.57 k/cumm (1.2-6.7); Eosinophils % 8.6; HCT 39.5 % (40.0-50.0); HGB 12.4 g/dL (13.5-17.5); Immature Grans % 0.3; Lymphocytes % 18.2; Mean Corp. HGB Concentration 31.4 g/dL (32.0-36.0); Mean Corpuscular Hemoglobin 29.1 pg (27.0-33.0); Mean Corpuscular Volume 92.7 fL (80-95); Monocytes % 10.6; Neutrophils % 61.3; Platelet Count 182 x1000/uL (130-400); RBC 4.26 m/cumm (4.50-6.00); RBC Distribution Width 17.2 % (11.8-14.1); White Blood Cell Count 5.83 k/cumm (4.4-10.8)
[2018-10-26 12:39] LABS: Iron 102 ug/dL (50-175); Total Iron Binding Capacity 303 ug/dL (250-450); Transferrin Sat 34 % (20-55)
[2018-10-26 13:09] LABS: Ferritin 24 ng/mL (8-388); Folate 19.9 ng/mL (8.6-20.0); Vitamin B12 728 pg/mL (193-986)
[2018-10-26 13:23] LABS: C-Reactive Protein 0.31 mg/dL (0.0-0.3)
== END 2018-10-26 11:21 ==
PROVIDERS: PCP Emergency Medicine; Visit Provider Nurse Practitioner Psychiatric/Mental Health
DX: D64.9 Anemia, unspecified (principal); F20.9 Schizophrenia, unspecified; Z79.899 Other long term (current) drug therapy
CPT/HCPCS: 36415; 82607; 82728; 82746; 83540; 83550; 85025; 86140

== ENCOUNTER → 2018-11-12 11:37 | Outpatient (BNVA) | payer MEDICARE, MEDICAID, SELFPAY | PROVIDERS: PCP Emergency Medicine; Visit Provider Internal Medicine Cardiovascular Disease | DX: I25.10 Atherosclerotic heart disease of native coronary artery without angina pectoris (principal); I73.9 Peripheral vascular disease, unspecified; F17.210 Nicotine dependence, cigarettes, uncomplicated; E11.9 Type 2 diabetes mellitus without complications; J44.9 Chronic obstructive pulmonary disease, unspecified | CPT/HCPCS: 99213 ==

== ENCOUNTER 2018-12-15 15:20 | Outpatient (CLI) | payer MEDICARE, MEDICAID, SELFPAY ==
[2018-12-15 16:00] LABS: VALPROIC ACID 53.7 ug/mL (50-100)
[2018-12-15 16:58] LABS: Abs Immature Grans 0.02 k/cumm (0.0-0.09); Absolute Basophil Count 0.06 k/cumm (0.0-0.2); Absolute Eosinophil Count 0.36 k/cumm (0.0-0.7); Absolute Lymphocyte Count 1.33 k/cumm (1.2-3.4); Absolute Monocyte Count 0.78 k/cumm (0.11-0.7); Basophils % 0.9; Eosinophils % 5.3; HCT 41.4 % (40.0-50.0); HGB 13.3 g/dL (13.5-17.5); Immature Grans % 0.3; Lymphocytes % 19.4; Mean Corp. HGB Concentration 32.1 g/dL (32.0-36.0); Mean Corpuscular Hemoglobin 29.7 pg (27.0-33.0); Mean Corpuscular Volume 92.4 fL (80-95); Mean Platelet Volume 12.1 fL (8.0-11.0); Monocytes % 11.4; Neutrophils % 62.7; Platelet Count 233 x1000/uL (130-400); RBC 4.48 m/cumm (4.50-6.00); RBC Distribution Width 15.6 % (11.8-14.1); White Blood Cell Count 6.85 k/cumm (4.4-10.8)
== END 2018-12-15 15:40 ==
PROVIDERS: PCP Emergency Medicine; Visit Provider Nurse Practitioner Psychiatric/Mental Health
DX: F25.0 Schizoaffective disorder, bipolar type (principal); Z51.81 Encounter for therapeutic drug level monitoring; Z79.899 Other long term (current) drug therapy
CPT/HCPCS: 36415; 80164; 85025

== ENCOUNTER 2019-01-11 10:42 | Outpatient (CLI) | payer MEDICARE, MEDICAID, SELFPAY ==
[2019-01-11 11:06] LABS: Abs Immature Grans 0.01 k/cumm (0.0-0.09); Absolute Basophil Count 0.07 k/cumm (0.0-0.2); Absolute Eosinophil Count 0.37 k/cumm (0.0-0.7); Absolute Lymphocyte Count 0.94 k/cumm (1.2-3.4); Absolute Monocyte Count 0.72 k/cumm (0.11-0.7); Absolute Neutrophil Count 4.76 k/cumm (1.2-6.7); Eosinophils % 5.4; HCT 39.8 % (40.0-50.0); HGB 12.7 g/dL (13.5-17.5); Immature Grans % 0.1; Lymphocytes % 13.7; Mean Corp. HGB Concentration 31.9 g/dL (32.0-36.0); Mean Corpuscular Volume 94.1 fL (80-95); Mean Platelet Volume 11.3 fL (8.0-11.0); Monocytes % 10.5; Neutrophils % 69.3; Platelet Count 207 x1000/uL (130-400); RBC 4.23 m/cumm (4.50-6.00); RBC Distribution Width 14.7 % (11.8-14.1); White Blood Cell Count 6.87 k/cumm (4.4-10.8)
== END 2019-01-11 11:02 ==
PROVIDERS: PCP Emergency Medicine; Visit Provider Nurse Practitioner Psychiatric/Mental Health
DX: F20.9 Schizophrenia, unspecified (principal); Z79.899 Other long term (current) drug therapy
CPT/HCPCS: 36415; 85025

== ENCOUNTER 2019-02-18 12:33 | Outpatient (CLI) | payer MEDICARE, MEDICAID, SELFPAY ==
[2019-02-18 13:03] LABS: Abs Immature Grans 0.03 k/cumm (0.0-0.09); Absolute Basophil Count 0.06 k/cumm (0.0-0.2); Absolute Eosinophil Count 0.28 k/cumm (0.0-0.7); Absolute Lymphocyte Count 1.08 k/cumm (1.2-3.4); Absolute Monocyte Count 0.76 k/cumm (0.11-0.7); Absolute Neutrophil Count 5.16 k/cumm (1.2-6.7); Basophils % 0.8; Eosinophils % 3.8; HCT 41.2 % (40.0-50.0); Immature Grans % 0.4; Lymphocytes % 14.7; Mean Corp. HGB Concentration 31.6 g/dL (32.0-36.0); Mean Corpuscular Hemoglobin 30.1 pg (27.0-33.0); Mean Corpuscular Volume 95.4 fL (80-95); Mean Platelet Volume 11.4 fL (8.0-11.0); Monocytes % 10.3; Platelet Count 211 x1000/uL (130-400); RBC 4.32 m/cumm (4.50-6.00); White Blood Cell Count 7.37 k/cumm (4.4-10.8)
== END 2019-02-18 12:53 ==
PROVIDERS: PCP Emergency Medicine; Visit Provider Nurse Practitioner Psychiatric/Mental Health
DX: F20.9 Schizophrenia, unspecified (principal); Z79.899 Other long term (current) drug therapy
CPT/HCPCS: 36415; 85025

== ENCOUNTER 2019-03-09 12:49 | Outpatient (CLI) | payer MEDICARE, MEDICAID, SELFPAY ==
[2019-03-09 13:31] LABS: Abs Immature Grans 0.03 k/cumm (0.0-0.09); Absolute Basophil Count 0.05 k/cumm (0.0-0.2); Absolute Eosinophil Count 0.26 k/cumm (0.0-0.7); Absolute Lymphocyte Count 1.35 k/cumm (1.2-3.4); Absolute Neutrophil Count 5.21 k/cumm (1.2-6.7); Basophils % 0.6; Eosinophils % 3.3; HCT 42.1 % (40.0-50.0); HGB 13.2 g/dL (13.5-17.5); Immature Grans % 0.4; Lymphocytes % 17.3; Mean Corp. HGB Concentration 31.4 g/dL (32.0-36.0); Mean Corpuscular Hemoglobin 30.3 pg (27.0-33.0); Mean Corpuscular Volume 96.8 fL (80-95); Mean Platelet Volume 11.8 fL (8.0-11.0); Monocytes % 11.5; Neutrophils % 66.9; Platelet Count 208 x1000/uL (130-400); RBC 4.35 m/cumm (4.50-6.00); RBC Distribution Width 14.1 % (11.8-14.1)
== END 2019-03-09 13:09 ==
LOC: LBN 12:51 → LBO 12:52
PROVIDERS: PCP Emergency Medicine; Visit Provider Nurse Practitioner Psychiatric/Mental Health
DX: F20.9 Schizophrenia, unspecified (principal); Z79.899 Other long term (current) drug therapy
CPT/HCPCS: 36415; 85025

== ENCOUNTER 2019-04-09 13:02 | Outpatient (CLI) | payer MEDICARE, MEDICAID, SELFPAY ==
[2019-04-09 13:27] LABS: Abs Immature Grans 0.02 k/cumm (0.0-0.09); Absolute Basophil Count 0.05 k/cumm (0.0-0.2); Absolute Eosinophil Count 0.37 k/cumm (0.0-0.7); Absolute Lymphocyte Count 1.28 k/cumm (1.2-3.4); Absolute Monocyte Count 0.71 k/cumm (0.11-0.7); Absolute Neutrophil Count 4.28 k/cumm (1.2-6.7); Basophils % 0.7; Eosinophils % 5.5; HCT 42.6 % (40.0-50.0); HGB 13.4 g/dL (13.5-17.5); Immature Grans % 0.3; Lymphocytes % 19.1; Mean Corp. HGB Concentration 31.5 g/dL (32.0-36.0); Mean Corpuscular Hemoglobin 30.5 pg (27.0-33.0); Mean Platelet Volume 11.5 fL (8.0-11.0); Monocytes % 10.6; Neutrophils % 63.8; Platelet Count 219 x1000/uL (130-400); RBC 4.39 m/cumm (4.50-6.00); RBC Distribution Width 13.8 % (11.8-14.1); White Blood Cell Count 6.71 k/cumm (4.4-10.8)
[2019-04-09 13:34] LABS: VALPROIC ACID 34.4 ug/mL (50-100)
[2019-04-09 14:34] LABS: Ferritin 32 ng/mL (26-388)
== END 2019-04-09 13:22 ==
PROVIDERS: PCP Emergency Medicine; Visit Provider Nurse Practitioner Psychiatric/Mental Health
DX: D64.9 Anemia, unspecified (principal); E11.9 Type 2 diabetes mellitus without complications; F25.0 Schizoaffective disorder, bipolar type; Z51.81 Encounter for therapeutic drug level monitoring; Z79.899 Other long term (current) drug therapy; F20.9 Schizophrenia, unspecified
CPT/HCPCS: 80164; 82728; 83036; 85025

== ENCOUNTER 2019-05-07 10:29 | Outpatient (CLI) | payer MEDICARE, MEDICAID, SELFPAY ==
[2019-05-07 10:51] LABS: Abs Immature Grans 0.03 k/cumm (0.0-0.09); Absolute Basophil Count 0.05 k/cumm (0.0-0.2); Absolute Eosinophil Count 0.32 k/cumm (0.0-0.7); Absolute Lymphocyte Count 1.02 k/cumm (1.2-3.4); Absolute Monocyte Count 0.92 k/cumm (0.11-0.7); Absolute Neutrophil Count 6.77 k/cumm (1.2-6.7); Basophils % 0.5; Eosinophils % 3.5; HCT 40.9 % (40.0-50.0); Immature Grans % 0.3 %; Lymphocytes % 11.2; Mean Corp. HGB Concentration 31.8 g/dL (32.0-36.0); Mean Corpuscular Volume 97.4 fL (80-95); Mean Platelet Volume 11.5 fL (8.0-11.0); Monocytes % 10.1; Neutrophils % 74.4; Platelet Count 203 x1000/uL (130-400); RBC Distribution Width 13.8 % (11.8-14.1); White Blood Cell Count 9.11 k/cumm (4.4-10.8)
== END 2019-05-07 10:49 ==
PROVIDERS: PCP Emergency Medicine; Visit Provider Nurse Practitioner Psychiatric/Mental Health
DX: F20.9 Schizophrenia, unspecified (principal); Z79.899 Other long term (current) drug therapy
CPT/HCPCS: 36415; 85025

== ENCOUNTER 2019-06-08 13:25 | Outpatient (CLI) | payer MEDICARE, MEDICAID, SELFPAY ==
[2019-06-08 13:52] LABS: Abs Immature Grans 0.03 k/cumm (0.0-0.09); Absolute Basophil Count 0.04 k/cumm (0.0-0.2); Absolute Eosinophil Count 0.33 k/cumm (0.0-0.7); Absolute Lymphocyte Count 1.27 k/cumm (1.2-3.4); Absolute Monocyte Count 0.72 k/cumm (0.11-0.7); Absolute Neutrophil Count 4.29 k/cumm (1.2-6.7); Basophils % 0.6; Eosinophils % 4.9; Immature Grans % 0.4 %; Mean Corp. HGB Concentration 31.6 g/dL (32.0-36.0); Mean Corpuscular Hemoglobin 30.4 pg (27.0-33.0); Mean Corpuscular Volume 96.2 fL (80-95); Mean Platelet Volume 11.2 fL (8.0-11.0); Monocytes % 10.8; Neutrophils % 64.3; Platelet Count 203 x1000/uL (130-400); RBC 3.95 m/cumm (4.50-6.00); RBC Distribution Width 13.3 % (11.8-14.1); White Blood Cell Count 6.68 k/cumm (4.4-10.8)
== END 2019-06-08 13:45 ==
PROVIDERS: PCP Emergency Medicine; Visit Provider Nurse Practitioner Psychiatric/Mental Health
DX: F20.9 Schizophrenia, unspecified (principal); Z79.899 Other long term (current) drug therapy
CPT/HCPCS: 36415; 85025

== ENCOUNTER → 2019-06-14 14:39 | Outpatient (BNVA) | payer MEDICARE, MEDICAID, SELFPAY | PROVIDERS: PCP Emergency Medicine; Referring Provider Emergency Medicine; Visit Provider Internal Medicine Cardiovascular Disease | DX: I25.10 Atherosclerotic heart disease of native coronary artery without angina pectoris (principal); Z95.1 Presence of aortocoronary bypass graft; E11.9 Type 2 diabetes mellitus without complications; J44.9 Chronic obstructive pulmonary disease, unspecified; Z95.5 Presence of coronary angioplasty implant and graft | CPT/HCPCS: 99204; 99215 ==

== ENCOUNTER → 2019-07-01 12:37 | Outpatient (BNVA) | payer MEDICARE, MEDICAID, SELFPAY | PROVIDERS: PCP Emergency Medicine; Visit Provider Nurse Practitioner Gerontology | DX: R35.0 Frequency of micturition (principal); R35.1 Nocturia | CPT/HCPCS: 99213 ==

== ENCOUNTER 2019-07-14 12:25 | Outpatient (CLI) | payer MEDICARE, MEDICAID, SELFPAY ==
[2019-07-14 12:57] LABS: Abs Immature Grans 0.02 k/cumm (0.0-0.09); Absolute Basophil Count 0.05 k/cumm (0.0-0.2); Absolute Eosinophil Count 0.24 k/cumm (0.0-0.7); Absolute Lymphocyte Count 1.23 k/cumm (1.2-3.4); Absolute Monocyte Count 0.76 k/cumm (0.11-0.7); Absolute Neutrophil Count 4.93 k/cumm (1.2-6.7); Basophils % 0.7; Eosinophils % 3.3; HCT 42.2 % (40.0-50.0); HGB 13.2 g/dL (13.5-17.5); Immature Grans % 0.3 %; Mean Corp. HGB Concentration 31.3 g/dL (32.0-36.0); Mean Corpuscular Hemoglobin 29.9 pg (27.0-33.0); Mean Corpuscular Volume 95.5 fL (80-95); Mean Platelet Volume 11.5 fL (8.0-11.0); Monocytes % 10.5; Neutrophils % 68.2; Platelet Count 227 x1000/uL (130-400); RBC 4.42 m/cumm (4.50-6.00); White Blood Cell Count 7.23 k/cumm (4.4-10.8)
[2019-07-14 13:03] LABS: VALPROIC ACID 41.7 ug/mL (50-100)
== END 2019-07-14 12:45 ==
PROVIDERS: PCP Emergency Medicine; Visit Provider Nurse Practitioner Psychiatric/Mental Health
DX: F20.9 Schizophrenia, unspecified (principal); Z51.81 Encounter for therapeutic drug level monitoring; Z79.899 Other long term (current) drug therapy
CPT/HCPCS: 36415; 80164; 85025

== ENCOUNTER 2019-08-26 13:41 | Outpatient (REF) | payer MEDICARE, MEDICAID, SELFPAY ==
[2019-08-26 16:07] LABS: Abs Immature Grans 0.01 k/cumm (0.0-0.09); Absolute Basophil Count 0.04 k/cumm (0.0-0.2); Absolute Eosinophil Count 0.25 k/cumm (0.0-0.7); Absolute Monocyte Count 0.59 k/cumm (0.11-0.7); Absolute Neutrophil Count 4.22 k/cumm (1.2-6.7); Basophils % 0.6; HCT 41.6 % (40.0-50.0); HGB 13.4 g/dL (13.5-17.5); Immature Grans % 0.2 %; Mean Corp. HGB Concentration 32.2 g/dL (32.0-36.0); Mean Corpuscular Hemoglobin 30.5 pg (27.0-33.0); Mean Corpuscular Volume 94.8 fL (80-95); Mean Platelet Volume 12.2 fL (8.0-11.0); Monocytes % 9.4; Neutrophils % 66.8; Platelet Count 180 x1000/uL (130-400); RBC 4.39 m/cumm (4.50-6.00); RBC Distribution Width 14.3 % (11.8-14.1); White Blood Cell Count 6.31 k/cumm (4.4-10.8)
== END 2019-08-26 14:01 ==
LOC: LBN 13:41
PROVIDERS: PCP Emergency Medicine; Visit Provider Emergency Medicine
DX: D64.9 Anemia, unspecified (principal)
CPT/HCPCS: 85025

== ENCOUNTER 2019-09-20 17:57 | Outpatient (REF) | payer MEDICARE, MEDICAID, SELFPAY ==
[2019-09-20 16:10] LABS: Abs Immature Grans 0.01 k/cumm (0.0-0.09); Absolute Basophil Count 0.06 k/cumm (0.0-0.2); Absolute Eosinophil Count 0.39 k/cumm (0.0-0.7); Absolute Lymphocyte Count 1.04 k/cumm (1.2-3.4); Absolute Monocyte Count 0.76 k/cumm (0.11-0.7); Absolute Neutrophil Count 5.21 k/cumm (1.2-6.7); Basophils % 0.8; Eosinophils % 5.2; HCT 41.9 % (40.0-50.0); HGB 13.5 g/dL (13.5-17.5); Immature Grans % 0.1 %; Lymphocytes % 13.9; Mean Corp. HGB Concentration 32.2 g/dL (32.0-36.0); Mean Corpuscular Hemoglobin 30.5 pg (27.0-33.0); Mean Corpuscular Volume 94.6 fL (80-95); Mean Platelet Volume 11.7 fL (8.0-11.0); Monocytes % 10.2; Neutrophils % 69.8; Platelet Count 217 x1000/uL (130-400); RBC 4.43 m/cumm (4.50-6.00); RBC Distribution Width 14.1 % (11.8-14.1); White Blood Cell Count 7.47 k/cumm (4.4-10.8)
== END 2019-09-20 18:17 ==
LOC: LBN 17:57
PROVIDERS: PCP Emergency Medicine; Visit Provider Nurse Practitioner Psychiatric/Mental Health
DX: D64.9 Anemia, unspecified (principal)
CPT/HCPCS: 85025

== ENCOUNTER 2019-10-21 14:29 | Outpatient (REF) | payer MEDICARE, MEDICAID, SELFPAY ==
[2019-10-21 16:12] LABS: Absolute Basophil Count 0.04 k/cumm (0.0-0.2); Absolute Lymphocyte Count 0.82 k/cumm (1.2-3.4); Absolute Monocyte Count 0.64 k/cumm (0.11-0.7); Absolute Neutrophil Count 3.51 k/cumm (1.2-6.7); Basophils % 0.8; Eosinophils % 3.8; HCT 40.1 % (40.0-50.0); HGB 12.7 g/dL (13.5-17.5); Lymphocytes % 15.7; Mean Corp. HGB Concentration 31.7 g/dL (32.0-36.0); Mean Corpuscular Hemoglobin 30.4 pg (27.0-33.0); Mean Corpuscular Volume 95.9 fL (80-95); Mean Platelet Volume 12.4 fL (8.0-11.0); Monocytes % 12.3; Neutrophils % 67.4; Platelet Count 184 x1000/uL (130-400); RBC 4.18 m/cumm (4.50-6.00); RBC Distribution Width 14.5 % (11.8-14.1); White Blood Cell Count 5.21 k/cumm (4.4-10.8)
== END 2019-10-21 14:49 ==
LOC: LBN 14:29
PROVIDERS: PCP Emergency Medicine; Visit Provider Nurse Practitioner Family
DX: D64.9 Anemia, unspecified (principal)
CPT/HCPCS: 85025

== ENCOUNTER 2019-11-23 18:58 | Outpatient (REF) | payer MEDICARE, MEDICAID, SELFPAY ==
[2019-11-23 15:49] LABS: Abs Immature Grans 0.02 10^3/uL (0.0-0.06); Absolute Basophil Count 0.05 10^3/uL (0.0-0.2); Absolute Lymphocyte Count 1.15 10^3/uL (1.2-3.4); Absolute Monocyte Count 0.63 10^3/uL (0.1-0.8); Absolute Neutrophil Count 4.18 10^3/uL (1.2-6.7); Basophils % 0.8; Eosinophils % 4.7; HCT 41.4 % (40.0-50.0); HGB 13.2 g/dL (13.5-17.5); Immature Grans % 0.3; Lymphocytes % 18.2; MCHC 31.9 % (32.0-36.0); MCV 97.2 fL (80-95); MPV 12.3 fL (8.0-11.0); Nucleated RBC 0 %; Platelet Count 153 10^3/uL (130-400); RBC 4.26 10^6/uL (4.36-5.78); RDW 13.7 % (11.8-14.1); RDW-SD 48.9 fL; WBC 6.33 10^3/uL (4.4-10.8)
== END 2019-11-23 19:18 ==
LOC: LBN 18:58
PROVIDERS: PCP Emergency Medicine; Visit Provider Nurse Practitioner Family
DX: D64.9 Anemia, unspecified (principal)
CPT/HCPCS: 85025

== ENCOUNTER 2019-12-21 15:42 | Outpatient (REF) | payer MEDICARE, MEDICAID, SELFPAY ==
[2019-12-21 14:31] LABS: Abs Immature Grans 0.02 10^3/uL (0.0-0.06); Absolute Basophil Count 0.05 10^3/uL (0.0-0.2); Absolute Eosinophil Count 0.22 10^3/uL (0.0-0.7); Absolute Monocyte Count 0.58 10^3/uL (0.1-0.8); Absolute Neutrophil Count 3.83 10^3/uL (1.2-6.7); Basophils % 0.9; Eosinophils % 3.8; HCT 40.6 % (40.0-50.0); HGB 13.1 g/dL (13.5-17.5); Immature Grans % 0.3; MCHC 32.3 % (32.0-36.0); MPV 11.7 fL (8.0-11.0); Nucleated RBC 0 %; Platelet Count 191 10^3/uL (130-400); RBC 4.23 10^6/uL (4.36-5.78); RDW 13.3 % (11.8-14.1); RDW-SD 47.2 fL
== END 2019-12-21 16:02 ==
LOC: LBN 15:42
PROVIDERS: PCP Emergency Medicine; Visit Provider Nurse Practitioner Family
DX: D64.9 Anemia, unspecified (principal)
CPT/HCPCS: 85025

== ENCOUNTER → 2020-01-10 12:44 | Outpatient (BNVA) | payer MEDICARE, MEDICAID, SELFPAY | PROVIDERS: PCP Emergency Medicine; Referring Provider Emergency Medicine; Visit Provider Internal Medicine Cardiovascular Disease | DX: I25.10 Atherosclerotic heart disease of native coronary artery without angina pectoris (principal); F20.9 Schizophrenia, unspecified; E11.9 Type 2 diabetes mellitus without complications; J44.9 Chronic obstructive pulmonary disease, unspecified; Z95.5 Presence of coronary angioplasty implant and graft; Z79.84 Long term (current) use of oral hypoglycemic drugs; G20 Parkinson's disease | CPT/HCPCS: 99214 ==

== ENCOUNTER → 2020-01-21 12:50 | Outpatient (BNVA) | payer MEDICARE, MEDICAID, SELFPAY | PROVIDERS: PCP Emergency Medicine; Referring Provider Emergency Medicine; Visit Provider Surgery | DX: L89.519 Pressure ulcer of right ankle, unspecified stage (principal); E11.621 Type 2 diabetes mellitus with foot ulcer; E11.42 Type 2 diabetes mellitus with diabetic polyneuropathy; J44.9 Chronic obstructive pulmonary disease, unspecified | CPT/HCPCS: 99202; 99213 ==

== ENCOUNTER 2020-01-26 21:20 | Outpatient (REF) | payer MEDICARE, MEDICAID, SELFPAY ==
[2020-01-26 14:12] LABS: Abs Immature Grans 0.03 10^3/uL (0.0-0.06); Absolute Basophil Count 0.06 10^3/uL (0.0-0.2); Absolute Eosinophil Count 0.19 10^3/uL (0.0-0.7); Absolute Lymphocyte Count 0.93 10^3/uL (1.2-3.4); Absolute Monocyte Count 0.61 10^3/uL (0.1-0.8); Absolute Neutrophil Count 4.47 10^3/uL (1.2-6.7); HCT 42.5 % (40.0-50.0); HGB 13.5 g/dL (13.5-17.5); Immature Grans % 0.5; Lymphocytes % 14.8; MCH 30.8 pg (27.0-33.0); MCHC 31.8 % (32.0-36.0); MPV 11.8 fL (8.0-11.0); Monocytes % 9.7; Nucleated RBC 0 %; Platelet Count 203 10^3/uL (130-400); RBC 4.38 10^6/uL (4.36-5.78); RDW 13.2 % (11.8-14.1); RDW-SD 47.7 fL; WBC 6.29 10^3/uL (4.4-10.8)
== END 2020-01-26 21:40 ==
LOC: LBN 21:20
PROVIDERS: PCP Emergency Medicine; Visit Provider Nurse Practitioner Family
DX: D64.9 Anemia, unspecified (principal); I73.9 Peripheral vascular disease, unspecified; G21.19 Other drug induced secondary parkinsonism
CPT/HCPCS: 85025

== ENCOUNTER 2020-02-09 00:36 | Outpatient (CLI) | payer MEDICARE, MEDICAID, SELFPAY ==
--- NOTE | 2020-02-09 13:50 | DI.US_ITS ---
APPROVED REPORT EXAM: Comprehensive 2D, Doppler, and color-flow Echocardiogram Patient Location: Out-Patient Sil[place] Hanger: Jailyn Lagunas RDCS (AE) Indications: ICM, Atherosclerosis Other Information Study Quality: Fair Conclusion Left Ventricle : The left ventricle is normal size. Left ventricular systolic function is moderate to severely decreased. There is normal left ventricular wall thickness. There is global hypokinesis of the left ventricle. Diastolic function is abnormal. LVEF is 25-30%. Right Ventricle : Right ventricle is not well visualized. Right ventricular systolic function could n ot be assessed. The RVSP is 20.2 mmHg. Atria : The left atrium size is normal. Right atrium is not well visualized. Mitral Valve : Mild mitral annular calcification. No evidence of mitral valve stenosis. Trace mitral regurgitation. Great Vessels : The aortic root is normal in size. The ascending aorta is normal in size. Aortic arch is normal in caliber. IVC is normal in size and collapses >50% with inspiration. Please see remainder of study for further details. Compared to echocardiogram from 04/24/2017, the patient's ejection fraction has decreased slightly. Wall motion Left Ventricle The left ventricle is normal size. Left ventricular systolic function is moderate to severely decreas ed. There is normal left ventricular wall thickness. There is global hypokinesis of the left ventricl e. Diastolic function is abnormal. There is no ventricular septal defect visualized. LVEF is 25-30%. Right Ventricle Right ventricle is not well visualized. Right ventricular systolic function could not be assessed. Th e RVSP is 20.2 mmHg. Atria The left atrium size is normal. Right atrium is not well visualized. The interatrial septum is intact with no evidence for an atrial septal defect. Aortic Valve The Aortic valve is sclerotic. Aortic valve is trileaflet. There is no aortic valvular stenosis. No a ortic regurgitation is present. Mitral Valve Mild mitral annular calcification. No evidence of mitral valve stenosis. Trace mitral regurgitation. Tricuspid Valve The tricuspid valve is normal in structure. There is no tricuspid valve stenosis. Trace tricuspid reg urgitation. Pulmonic Valve The pulmonary valve is normal in structure. There is no pulmonic valvular stenosis. Trace pulmonic re gurgitation. Great Vessels The aortic root is normal in size. The ascending aorta is normal in size. Aortic arch is normal in ca liber. IVC is normal in size and collapses >50% with inspiration. Pericardium There is no pericardial effusion. 2D Dimensions IVSD d PLAX 0.99 cm M: 0.6-1.2 LV Vol A2C d MOD 129.3 mL LVPW d PLAX 0.97 cm M: 0.6 - 1.2 LV Vol A4C d MOD 153.5 mL LVID d PLAX 5.66 cm M: 4.2 - 5.8 LA vol/ BSA A2C s A-L 29.2 mL/m2 LVDs 4.95 cm M: 2.5 - 4.0 LA vol/ BSA A4C s A-L 16.1 mL/m2 Ao Root d 2.93 cm M: 3.1 - 3.7 LA Vol/ BSA Biplane s A-L 23.5 mL/m2 Ao Asc Diam d 3.10 cm M: 2.6 - 3.4 LA Area A4C s MOD 12.75 cm2 LV EF Teichholz 26.4 % LA Area A2C s MOD 18.56 cm2 LVEF (Sheth's) 26.07 % M: 52 - 72 LV EF A4C MOD 30.9 % LV Volume 107.49 mL M: 62 - 150 LV EF A2C MOD 22.5 % LV Volume Index 55.69 mL/m2 M: 34 - 74 LV EF Biplane MOD 26.1 % LV Vol Biplane MOD 141.8 mL SV 36.97 mL FS 12.40 % SV Index 19.08 mL/m2 M-Mode TAPSE 0.81 cm (M/F) >1.7 LV Diastology MV E' medial 0.049 (>0.07 m/s) E/A Ratio 0.6 LV E/e MED 10.10 (<14) MV E Vmax 0.50 (0.4-1.3 m/s) MV E' lateral 0.076 (>0.1 m/s) MV A Vmax 0.85 (0.4-1.3 m/s) LV E/e LAT 6.50 (<14) MV E/A Ratio 0.56 MV E/E' medial 10.13 MV E/E' lateral 6.53 Aortic Valve LVOT Area 3.38 cm2 AoV Area Vmax 2.79 cm2 LVOT Vmax 1.05 m/s AoV Area/ BSA (Vmax) 1.44 cm2/m2 LVOT Mean Fredrick. 0.70 m/s FRANKIE Mean Fredrick. 2.45 cm2 LVOT Peak Grad 4.4 mmHg FRANKIE Mean Fredrick. Index 1.26 cm2/m2 LVOT Mean Grad 2.3 mmHg LVOT VTI 0.169 m LVOT Diam s 2.05 cm AoV Vmax 1.27 m/s Velocity Ratio 0.82 AoV Mean Fredrick. 0.96 m/s AoV Peak Grad 6.4 mmHg LVOT SV 57.19 mL AoV Mean Grad 4.0 mmHg AoV VTI 0.209 m AoV Area VTI 2.73 cm2 AoV Area/ BSA (VTI) 1.41 cm/m2 Mitral Valve MV DT 238 (160-240 msec) MV PHT 69 msec MV Area PHT 3.19 cm2 Pulmonary Valve PV Vmax 1.04 (0.5-1.5 m/s) RVOT Peak Gr. 1.84 mmHg PV Peak Grad 4.3 mmHg RVOT Mean Gr. 0.85 mmHg PV Mean Grad 1.9 mmHg RVOT VTI 0.099 m PV VTI 0.169 m RVOT Vmax 0.68 m/s Tricuspid Valve TR Peak Grad 17.1 mmHg TR Vmax 2.07 m/s RA Pressure 3.00 mmHg RVSP (TR) 20.2 mmHg
== END 2020-02-09 00:56 ==
PROVIDERS: PCP Emergency Medicine; Visit Provider Internal Medicine Cardiovascular Disease
DX: I25.10 Atherosclerotic heart disease of native coronary artery without angina pectoris (principal); I25.5 Ischemic cardiomyopathy
CPT/HCPCS: 93306

== ENCOUNTER 2020-02-21 12:50 | Outpatient (REF) | payer MEDICARE, MEDICAID, SELFPAY ==
[2020-02-21 13:20] LABS: Abs Immature Grans 0.03 10^3/uL (0.0-0.06); Absolute Basophil Count 0.06 10^3/uL (0.0-0.2); Absolute Eosinophil Count 0.15 10^3/uL (0.0-0.7); Absolute Lymphocyte Count 0.83 10^3/uL (1.2-3.4); Absolute Monocyte Count 0.61 10^3/uL (0.1-0.8); Absolute Neutrophil Count 5.06 10^3/uL (1.2-6.7); Basophils % 0.9; Eosinophils % 2.2; HCT 42.3 % (40.0-50.0); HGB 13.6 g/dL (13.5-17.5); Immature Grans % 0.4; Lymphocytes % 12.3; MCH 30.7 pg (27.0-33.0); MCHC 32.2 % (32.0-36.0); MCV 95.5 fL (80-95); MPV 11.9 fL (8.0-11.0); Monocytes % 9.1; Neutrophils % 75.1; Nucleated RBC 0 %; Platelet Count 218 10^3/uL (130-400); RBC 4.43 10^6/uL (4.36-5.78); RDW 13.2 % (11.8-14.1); RDW-SD 46.9 fL; WBC 6.74 10^3/uL (4.4-10.8)
== END 2020-02-21 13:10 ==
LOC: LBN 12:50
PROVIDERS: PCP Emergency Medicine; Visit Provider Nurse Practitioner Family
DX: D64.9 Anemia, unspecified (principal)
CPT/HCPCS: 85025

== ENCOUNTER 2020-03-21 11:26 | Outpatient (REF) | payer MEDICARE, MEDICAID, SELFPAY ==
[2020-03-21 13:10] LABS: Abs Immature Grans 0.03 10^3/uL (0.0-0.06); Absolute Basophil Count 0.06 10^3/uL (0.0-0.2); Absolute Lymphocyte Count 1.22 10^3/uL (1.2-3.4); Absolute Monocyte Count 0.77 10^3/uL (0.1-0.8); Absolute Neutrophil Count 4.07 10^3/uL (1.2-6.7); Basophils % 0.9; Eosinophils % 4.7; HCT 42.8 % (40.0-50.0); HGB 13.5 g/dL (13.5-17.5); Immature Grans % 0.5; Lymphocytes % 18.9; MCH 30.3 pg (27.0-33.0); MCHC 31.5 % (32.0-36.0); MCV 96.2 fL (80-95); MPV 12.3 fL (8.0-11.0); Monocytes % 11.9; Neutrophils % 63.1; Nucleated RBC 0 %; Platelet Count 198 10^3/uL (130-400); RBC 4.45 10^6/uL (4.36-5.78); RDW 13.3 % (11.8-14.1); RDW-SD 46.8 fL; WBC 6.45 10^3/uL (4.4-10.8)
== END 2020-03-21 11:46 ==
LOC: LBN 11:26
PROVIDERS: PCP Emergency Medicine; Visit Provider Nurse Practitioner Family
DX: D64.9 Anemia, unspecified (principal)
CPT/HCPCS: 85025

== ENCOUNTER 2020-04-18 11:51 | Outpatient (REF) | payer MEDICARE, MEDICAID, SELFPAY ==
[2020-04-18 13:51] LABS: Abs Immature Grans 0.03 10^3/uL (0.0-0.06); Absolute Basophil Count 0.07 10^3/uL (0.0-0.2); Absolute Eosinophil Count 0.32 10^3/uL (0.0-0.7); Absolute Lymphocyte Count 1.18 10^3/uL (1.2-3.4); Absolute Monocyte Count 0.78 10^3/uL (0.1-0.8); Absolute Neutrophil Count 4.87 10^3/uL (1.2-6.7); Eosinophils % 4.4; HCT 41.9 % (40.0-50.0); HGB 13.4 g/dL (13.5-17.5); Immature Grans % 0.4; Lymphocytes % 16.3; MCH 30.4 pg (27.0-33.0); MPV 11.9 fL (8.0-11.0); Monocytes % 10.8; Neutrophils % 67.1; Nucleated RBC 0 %; Platelet Count 213 10^3/uL (130-400); RBC 4.41 10^6/uL (4.36-5.78); RDW 13.1 % (11.8-14.1); RDW-SD 46.1 fL; WBC 7.25 10^3/uL (4.4-10.8)
== END 2020-04-18 12:11 ==
LOC: LBN 11:51
PROVIDERS: PCP Emergency Medicine; Visit Provider Nurse Practitioner Family
DX: D64.9 Anemia, unspecified (principal)
CPT/HCPCS: 85025

== ENCOUNTER 2020-05-12 16:45 | Outpatient (REF) | payer MEDICARE, MEDICAID, SELFPAY ==
[2020-05-12 18:03] LABS: HCT 40.4 % (40.0-50.0); MCH 30.5 pg (27.0-33.0); MCHC 32.2 % (32.0-36.0); MCV 94.8 fL (80-95); MPV 12.3 fL (8.0-11.0); Platelet Count 184 10^3/uL (130-400); RBC 4.26 10^6/uL (4.36-5.78); RDW 13.4 % (11.8-14.1); WBC 6.46 10^3/uL (4.4-10.8)
[2020-05-12 18:28] LABS: Anion Gap 8.7 mmol/L (3-11); BUN 19 mg/dL (7-18); CO2 27.3 mmol/L (21.0-32.0); Calcium 8.7 mg/dL (8.5-10.1); Chloride 103 mmol/L (98-107); Glucose 95 mg/dL (74-106); Potassium 4.5 mmol/L (3.5-5.1); Sodium 139 mmol/L (136-145)
[2020-05-12 18:30] LABS: Hemoglobin A1C 6.3 % (<5.7)
== END 2020-05-12 17:05 ==
LOC: NCHCN 16:45
PROVIDERS: PCP Emergency Medicine; Visit Provider Emergency Medicine
DX: I10 Essential (primary) hypertension (principal); E11.9 Type 2 diabetes mellitus without complications
CPT/HCPCS: 80048; 85027; 83036

== ENCOUNTER 2020-05-24 10:59 | Outpatient (REF) | payer MEDICARE, MEDICAID, SELFPAY ==
[2020-05-24 11:15] LABS: Abs Immature Grans 0.03 10^3/uL (0.0-0.06); Absolute Basophil Count 0.06 10^3/uL (0.0-0.2); Absolute Eosinophil Count 0.27 10^3/uL (0.0-0.7); Absolute Lymphocyte Count 1.12 10^3/uL (1.2-3.4); Absolute Monocyte Count 0.61 10^3/uL (0.1-0.8); Absolute Neutrophil Count 3.55 10^3/uL (1.2-6.7); Basophils % 1.1; Eosinophils % 4.8; HCT 39.9 % (40.0-50.0); Immature Grans % 0.5; Lymphocytes % 19.9; MCHC 32.6 % (32.0-36.0); MCV 95.2 fL (80-95); MPV 11.6 fL (8.0-11.0); Monocytes % 10.8; Neutrophils % 62.9; Nucleated RBC 0 %; Platelet Count 197 10^3/uL (130-400); RBC 4.19 10^6/uL (4.36-5.78); RDW 13.4 % (11.8-14.1); RDW-SD 46.9 fL; WBC 5.64 10^3/uL (4.4-10.8)
== END 2020-05-24 11:00 | disposition home or self-care (01) ==
LOC: LBN 10:59
PROVIDERS: PCP Emergency Medicine; Visit Provider Psychiatry & Neurology Psychiatry
DX: F20.9 Schizophrenia, unspecified (principal); G21.19 Other drug induced secondary parkinsonism; E11.51 Type 2 diabetes mellitus with diabetic peripheral angiopathy without gangrene; I25.10 Atherosclerotic heart disease of native coronary artery without angina pectoris
CPT/HCPCS: 85025

== ENCOUNTER 2020-06-20 15:56 | Outpatient (REF) | payer MEDICARE, MEDICAID, SELFPAY ==
[2020-06-20 18:20] LABS: Abs Immature Grans 0.03 10^3/uL (0.0-0.06); Absolute Basophil Count 0.07 10^3/uL (0.0-0.2); Absolute Eosinophil Count 0.31 10^3/uL (0.0-0.7); Absolute Lymphocyte Count 1.42 10^3/uL (1.2-3.4); Absolute Monocyte Count 0.62 10^3/uL (0.1-0.8); Absolute Neutrophil Count 4.73 10^3/uL (1.2-6.7); Eosinophils % 4.3; HCT 43.8 % (40.0-50.0); Immature Grans % 0.4; Lymphocytes % 19.8; MCH 30.8 pg (27.0-33.0); MCV 96.5 fL (80-95); MPV 12.6 fL (8.0-11.0); Monocytes % 8.6; Neutrophils % 65.9; Nucleated RBC 0 %; Platelet Count 213 10^3/uL (130-400); RBC 4.54 10^6/uL (4.36-5.78); RDW 13.2 % (11.8-14.1); RDW-SD 47.5 fL; WBC 7.18 10^3/uL (4.4-10.8)
== END 2020-06-20 15:57 | disposition home or self-care (01) ==
LOC: LBN 15:56
PROVIDERS: PCP Emergency Medicine; Visit Provider Psychiatry & Neurology Psychiatry
DX: F20.9 Schizophrenia, unspecified (principal); D64.9 Anemia, unspecified; Z79.899 Other long term (current) drug therapy
CPT/HCPCS: 85025

== ENCOUNTER → 2020-06-29 12:39 | Outpatient (BNVA) | payer MEDICARE, MEDICAID, SELFPAY | PROVIDERS: PCP Emergency Medicine; Visit Provider Nurse Practitioner Gerontology | DX: R39.89 Other symptoms and signs involving the genitourinary system (principal); Z79.899 Other long term (current) drug therapy | CPT/HCPCS: 99213 ==

== ENCOUNTER → 2020-07-13 10:38 | Outpatient (BNVA) | payer MEDICARE, MEDICAID, SELFPAY | PROVIDERS: PCP Emergency Medicine; Referring Provider Emergency Medicine; Visit Provider Internal Medicine Cardiovascular Disease | DX: I25.810 Atherosclerosis of coronary artery bypass graft(s) without angina pectoris (principal); I25.5 Ischemic cardiomyopathy | CPT/HCPCS: 99214 ==

== ENCOUNTER 2020-07-18 01:42 | Outpatient (CLI) | payer MEDICARE, MEDICAID, SELFPAY ==
--- NOTE | 2020-07-18 07:30 | DI.NM_ITS ---
APPROVED REPORT Exam: Pharmacologic Patient Location: Out-Patient Room/Bed: Stress Nurse: Bety Cherry RN Ordering Provider:BRITTANI IBRAHIM, Contact Number: [phone] BMI: 30.34 Baseline Rhythm: LBBB Indications: Chest pressure, atherosclerosis Medical History Medical History: CAD s/p CABG, COPD, tobacco use, hyperlipidemia, hypertension, ischemic cardiomyopat hy, NSTEMI, PVD, DM II, bipolar disorder, peripheral neuropathy, diabetic foot ulcer, bilateral oli ication, parkinson's, schizophrenia, ASCVD Cardiac Medications: Entresto, pantoprazole, nitro SL, metoprolol succinate, metformin, furosemide, a torvastatin, aspirin, albuterol sulfate Allergies: meperidine HCL Cardiac Risk Factors: hyperlipidemia, hypertension, DM II, smoker (current), COPD, PVD/CVD, family hx Previous Cardiac Procedures: CABG (2003), PCI (2016) Pretest Chest Pain Characteristics: None Exercise History: Sedentary Physical Disabilities: Legs Lung Sounds: Clear to auscultation Heart Sounds: Regular Stress Test Details Test: Pharmacologic stress testing performed using 0.4 mg of regadenoson per 5 mL given IV over 10 s econds. Reason for pharmacologic stress test: physical limitation, LBBB. Nuclear Acquisition: Rest Tc-99m/Stress Tc-99m 1 day Rest Isotope: Tc-99m Sestamibi. Dose: 10.7 Date: 07/18/2020 Injection Time: 1040 Stress Isotope: Tc-99m Sestamibi. Dose: 31.5 Date: 07/18/2020 Injection Time: 1215 HR Resting HR Supine: 86 bpm Max Heart Rate (APMHR): 140.008066 bpm Target HR (85% APMHR): 119.448604 bpm Max HR Achieved: 97 bpm % of APMHR: 69.29 Recovery HR: 92 bpm BP Resting BP Supine: 124/66 mmHg Max BP: 124/58 mmHg Recovery BP: 118/54 mmHg ECG Resting ECG: LBBB Ectopy: Occasional PVC's Stress ECG: LBBB ST Change: No significant ST segment changes noted Arrhythmia: Occasional PVC's Recovery ECG: LBBB Recovery ST Change: No significant ST segment changes noted Clinical Stress Symptoms: Dyspnea Rate Pressure Product: 20029 Stress ECG Conclusion 1. This is a pharmacological nuclear stress test. 2. The patient no symptoms suggestive of ischemia during infusion. 3. The ECG portion of this exam is nondiagnostic. Stress Test Summary STAGE HR BP Symptoms NOTES Supine 86 124/66 1 min post Lexiscan injection 91 122/56 severe SOB SPO2 98% 3 min post Lexiscan injection 95 124/58 moderate SOB SPO2 975 6 min post Lexiscan injection 92 118/54 mild SOB MPI Conclusion The patient's ejection fraction was 24% with stress. The LV is dilated with global hypokinesis. This is a poor quality study due to significant bowel attenuation. However, the patient has what christopher ears to be infarct at the apex and a small to moderate area of ischemia on the anterior/anterolateral acuna. This represents an abnormal SPECT stress test. Radiologist Interpretation Radiologist agrees with Switchboard Operator Assistant's Interpretation. Radiologist Interpretation by: Maritza Dooley MD Interpretation Date/Time: 07/18/2020 15:13:34
[2020-07-18] MEDS: Regadenoson 0.4 MG/5 ML SYR IVP (12:11)
== END 2020-07-18 02:02 ==
PROVIDERS: PCP Emergency Medicine; Visit Provider Internal Medicine Cardiovascular Disease
DX: I25.10 Atherosclerotic heart disease of native coronary artery without angina pectoris (principal); R07.89 Other chest pain; E78.5 Hyperlipidemia, unspecified; I10 Essential (primary) hypertension; E11.9 Type 2 diabetes mellitus without complications; F17.210 Nicotine dependence, cigarettes, uncomplicated; J44.9 Chronic obstructive pulmonary disease, unspecified; I73.9 Peripheral vascular disease, unspecified; Z82.49 Family history of ischemic heart disease and other diseases of the circulatory system; I44.7 Left bundle-branch block, unspecified; I51.7 Cardiomegaly; R94.39 Abnormal result of other cardiovascular function study
CPT/HCPCS: 36415; 78452; 93016; 93018; 85025; 93017; J2785

== ENCOUNTER 2020-07-18 03:58 | Outpatient (CLI) | payer MEDICARE, MEDICAID, SELFPAY ==
[2020-07-18 10:27] LABS: Abs Immature Grans 0.04 10^3/uL (0.0-0.06); Absolute Basophil Count 0.08 10^3/uL (0.0-0.2); Absolute Eosinophil Count 0.29 10^3/uL (0.0-0.7); Absolute Lymphocyte Count 1.24 10^3/uL (1.2-3.4); Absolute Monocyte Count 0.76 10^3/uL (0.1-0.8); Basophils % 0.9; Eosinophils % 3.3; HCT 42.2 % (40.0-50.0); HGB 13.4 g/dL (13.5-17.5); Immature Grans % 0.5; Lymphocytes % 14.1; MCH 30.7 pg (27.0-33.0); MCHC 31.8 % (32.0-36.0); MCV 96.8 fL (80-95); MPV 11.3 fL (8.0-11.0); Monocytes % 8.6; Neutrophils % 72.6; Nucleated RBC 0 %; Platelet Count 218 10^3/uL (130-400); RBC 4.36 10^6/uL (4.36-5.78); RDW 13.2 % (11.8-14.1); RDW-SD 47.4 fL; WBC 8.81 10^3/uL (4.4-10.8)
== END 2020-07-18 03:59 | disposition home or self-care (01) ==
LOC: LBO 03:59
PROVIDERS: PCP Emergency Medicine; Visit Provider Psychiatry & Neurology Psychiatry
DX: F25.0 Schizoaffective disorder, bipolar type (principal); Z79.899 Other long term (current) drug therapy
CPT/HCPCS: 36415; 85025

== ENCOUNTER 2020-07-21 12:48 | Outpatient (REF) | payer MEDICARE, MEDICAID, SELFPAY ==
[2020-07-21 14:01] LABS: VALPROIC ACID 47.9 ug/mL (50-100)
== END 2020-07-21 12:49 | disposition home or self-care (01) ==
LOC: LBN 12:48
PROVIDERS: PCP Emergency Medicine; Visit Provider Psychiatry & Neurology Psychiatry
DX: F20.9 Schizophrenia, unspecified (principal)
CPT/HCPCS: 80164

== ENCOUNTER 2020-08-15 15:37 | Outpatient (REF) | payer MEDICARE, MEDICAID, SELFPAY ==
[2020-08-15 16:36] LABS: Abs Immature Grans 0.02 10^3/uL (0.0-0.06); Absolute Basophil Count 0.04 10^3/uL (0.0-0.2); Absolute Lymphocyte Count 0.89 10^3/uL (1.2-3.4); Absolute Neutrophil Count 4.22 10^3/uL (1.2-6.7); Basophils % 0.7; Eosinophils % 3.4; HCT 39.5 % (40.0-50.0); HGB 12.8 g/dL (13.5-17.5); Immature Grans % 0.3; Lymphocytes % 14.9; MCH 30.5 pg (27.0-33.0); MCHC 32.4 % (32.0-36.0); MCV 94.3 fL (80-95); Monocytes % 10.1; Neutrophils % 70.6; Nucleated RBC 0 %; Platelet Count 167 10^3/uL (130-400); RBC 4.19 10^6/uL (4.36-5.78); RDW 13.6 % (11.8-14.1); RDW-SD 46.9 fL; WBC 5.97 10^3/uL (4.4-10.8)
[2020-08-15 17:02] LABS: Hemoglobin A1C 6.2 % (<5.7)
[2020-08-15 17:18] LABS: VALPROIC ACID 44.6 ug/mL (50-100)
[2020-08-15 17:42] LABS: ALT 17 U/L (16-63); AST 14 U/L (15-37); Albumin 3.3 g/dL (3.4-5.0); Alkaline Phosphatase 74 U/L (46-116); BUN 14 mg/dL (7-18); Bilirubin, Total 0.3 mg/dL (0.2-1.0); CREATININE 1.1 mg/dL (0.70-1.30); Calcium 8.4 mg/dL (8.5-10.1); Calculated LDL 66 mg/dL (<100); Chloride 101 mmol/L (98-107); Cholesterol 125 mg/dL (<200); Glucose 104 mg/dL (74-106); HDL Cholesterol 35 mg/dL (40-60); Magnesium 1.7 mg/dL (1.8-2.4); Potassium 4.1 mmol/L (3.5-5.1); Sodium 138 mmol/L (136-145); TSH 1.04 uIU/mL (0.36-3.74); Total Protein 6.2 g/dL (6.4-8.2); Triglyceride 124 mg/dL (<150); Vitamin B12 532 pg/mL (193-986)
[2020-08-15 18:00] LABS: FREE T4 1.07 ng/dL (0.76-1.46)
[2020-08-16 16:41] LABS: T3, Total 118 ng/dL (97-169)
[2020-08-17 04:23] LABS: Vitamin D 25 Total 53.5 ng/mL (30-100)
== END 2020-08-15 15:38 | disposition home or self-care (01) ==
LOC: LBN 15:37
PROVIDERS: PCP Emergency Medicine; Visit Provider Psychiatry & Neurology Psychiatry
DX: E11.51 Type 2 diabetes mellitus with diabetic peripheral angiopathy without gangrene (principal); D64.9 Anemia, unspecified; F20.9 Schizophrenia, unspecified; Z51.81 Encounter for therapeutic drug level monitoring; Z79.899 Other long term (current) drug therapy; G21.19 Other drug induced secondary parkinsonism
CPT/HCPCS: 80053; 80061; 82306; 80164; 82607; 83036; 83735; 84439; 84443; 84480; 85025; 86140

== ENCOUNTER → 2020-08-17 13:04 | Outpatient (BNVA) | payer MEDICARE, MEDICAID, SELFPAY | PROVIDERS: PCP Emergency Medicine; Referring Provider Emergency Medicine; Visit Provider Internal Medicine Cardiovascular Disease | DX: I25.10 Atherosclerotic heart disease of native coronary artery without angina pectoris (principal); Z95.1 Presence of aortocoronary bypass graft; E11.9 Type 2 diabetes mellitus without complications; J44.9 Chronic obstructive pulmonary disease, unspecified; Z79.899 Other long term (current) drug therapy | CPT/HCPCS: 99214 ==

== ENCOUNTER 2020-09-05 11:09 | Outpatient (REF) | payer MEDICARE, MEDICAID, SELFPAY ==
[2020-09-05 12:39] LABS: Abs Immature Grans 0.02 10^3/uL (0.0-0.06); Absolute Basophil Count 0.08 10^3/uL (0.0-0.2); Absolute Eosinophil Count 0.33 10^3/uL (0.0-0.7); Absolute Lymphocyte Count 1.24 10^3/uL (1.2-3.4); Absolute Monocyte Count 0.66 10^3/uL (0.1-0.8); Absolute Neutrophil Count 3.91 10^3/uL (1.2-6.7); Basophils % 1.3; Eosinophils % 5.3; HCT 39.4 % (40.0-50.0); HGB 12.7 g/dL (13.5-17.5); Immature Grans % 0.3; Lymphocytes % 19.9; MCH 30.6 pg (27.0-33.0); MCHC 32.2 % (32.0-36.0); MCV 94.9 fL (80-95); MPV 11.9 fL (8.0-11.0); Monocytes % 10.6; Neutrophils % 62.6; Nucleated RBC 0 %; Platelet Count 231 10^3/uL (130-400); RBC 4.15 10^6/uL (4.36-5.78); RDW 13.3 % (11.8-14.1); RDW-SD 46.9 fL; WBC 6.24 10^3/uL (4.4-10.8)
== END 2020-09-05 11:10 | disposition home or self-care (01) ==
LOC: LBN 11:09
PROVIDERS: Psychiatry & Neurology Psychiatry; PCP Emergency Medicine; Visit Provider Emergency Medicine
DX: D64.9 Anemia, unspecified (principal)
CPT/HCPCS: 85025

== ENCOUNTER 2020-09-28 14:42 | Outpatient (REF) | payer MEDICARE, MEDICAID, SELFPAY ==
[2020-09-28 13:49] LABS: Abs Immature Grans 0.03 10^3/uL (0.0-0.06); Absolute Basophil Count 0.07 10^3/uL (0.0-0.2); Absolute Eosinophil Count 0.35 10^3/uL (0.0-0.7); Absolute Lymphocyte Count 0.99 10^3/uL (1.2-3.4); Absolute Monocyte Count 0.77 10^3/uL (0.1-0.8); Absolute Neutrophil Count 4.65 10^3/uL (1.2-6.7); Eosinophils % 5.1; HGB 12.5 g/dL (13.5-17.5); Immature Grans % 0.4; Lymphocytes % 14.4; MCH 30.3 pg (27.0-33.0); MCHC 31.3 % (32.0-36.0); MCV 96.9 fL (80-95); MPV 11.6 fL (8.0-11.0); Monocytes % 11.2; Neutrophils % 67.9; Nucleated RBC 0 %; Platelet Count 227 10^3/uL (130-400); RBC 4.13 10^6/uL (4.36-5.78); RDW 13.4 % (11.8-14.1); RDW-SD 47.9 fL; WBC 6.86 10^3/uL (4.4-10.8)
== END 2020-09-28 14:43 | disposition home or self-care (01) ==
LOC: LBN 14:42
PROVIDERS: PCP Emergency Medicine; Visit Provider Psychiatry & Neurology Psychiatry
DX: D64.9 Anemia, unspecified (principal)
CPT/HCPCS: 85025

== ENCOUNTER 2020-10-18 15:13 | Outpatient (REF) | payer MEDICARE, MEDICAID, SELFPAY ==
[2020-10-18 12:43] LABS: Abs Immature Grans 0.02 10^3/uL (0.0-0.06); Absolute Basophil Count 0.06 10^3/uL (0.0-0.2); Absolute Eosinophil Count 0.25 10^3/uL (0.0-0.7); Absolute Lymphocyte Count 0.88 10^3/uL (1.2-3.4); Absolute Monocyte Count 0.62 10^3/uL (0.1-0.8); Absolute Neutrophil Count 3.81 10^3/uL (1.2-6.7); Basophils % 1.1; Eosinophils % 4.4; HCT 39.9 % (40.0-50.0); HGB 12.8 g/dL (13.5-17.5); Immature Grans % 0.4; Lymphocytes % 15.6; MCH 30.6 pg (27.0-33.0); MCHC 32.1 % (32.0-36.0); MCV 95.5 fL (80-95); MPV 11.7 fL (8.0-11.0); Neutrophils % 67.5; Nucleated RBC 0 %; Platelet Count 195 10^3/uL (130-400); RBC 4.18 10^6/uL (4.36-5.78); RDW 13.4 % (11.8-14.1); RDW-SD 47.9 fL; WBC 5.64 10^3/uL (4.4-10.8)
== END 2020-10-18 15:14 | disposition home or self-care (01) ==
LOC: LBN 15:13
PROVIDERS: PCP Emergency Medicine; Visit Provider Psychiatry & Neurology Psychiatry
DX: D64.9 Anemia, unspecified (principal)
CPT/HCPCS: 85025

== ENCOUNTER 2020-11-10 13:28 | Outpatient (REF) | payer MEDICARE, MEDICAID, SELFPAY ==
[2020-11-10 15:16] LABS: Abs Immature Grans 0.02 10^3/uL (0.0-0.06); Absolute Basophil Count 0.04 10^3/uL (0.0-0.2); Absolute Eosinophil Count 0.27 10^3/uL (0.0-0.7); Absolute Lymphocyte Count 0.98 10^3/uL (1.2-3.4); Absolute Monocyte Count 0.69 10^3/uL (0.1-0.8); Absolute Neutrophil Count 3.53 10^3/uL (1.2-6.7); Basophils % 0.7; Eosinophils % 4.9; HCT 39.8 % (40.0-50.0); HGB 12.5 g/dL (13.5-17.5); Immature Grans % 0.4; Lymphocytes % 17.7; MCH 30.3 pg (27.0-33.0); MCHC 31.4 % (32.0-36.0); MCV 96.6 fL (80-95); MPV 12.3 fL (8.0-11.0); Monocytes % 12.5; Neutrophils % 63.8; Nucleated RBC 0 %; Platelet Count 187 10^3/uL (130-400); RBC 4.12 10^6/uL (4.36-5.78); RDW 13.3 % (11.8-14.1); RDW-SD 47.7 fL; WBC 5.53 10^3/uL (4.4-10.8)
== END 2020-11-10 13:29 | disposition home or self-care (01) ==
LOC: LBN 13:28
PROVIDERS: PCP Emergency Medicine; Visit Provider Psychiatry & Neurology Psychiatry
DX: D64.9 Anemia, unspecified (principal)
CPT/HCPCS: 85025

== ENCOUNTER 2020-12-01 11:35 | Outpatient (REF) | payer MEDICARE, MEDICAID, SELFPAY ==
[2020-12-01 15:07] LABS: Abs Immature Grans 0.02 10^3/uL (0.0-0.06); Absolute Basophil Count 0.06 10^3/uL (0.0-0.2); Absolute Eosinophil Count 0.31 10^3/uL (0.0-0.7); Absolute Lymphocyte Count 1.19 10^3/uL (1.2-3.4); Absolute Monocyte Count 0.79 10^3/uL (0.1-0.8); Absolute Neutrophil Count 4.66 10^3/uL (1.2-6.7); Basophils % 0.9; Eosinophils % 4.4; HCT 39.1 % (40.0-50.0); HGB 12.3 g/dL (13.5-17.5); Immature Grans % 0.3; Lymphocytes % 16.9; MCH 30.4 pg (27.0-33.0); MCHC 31.5 % (32.0-36.0); MCV 96.8 fL (80-95); MPV 12.7 fL (8.0-11.0); Monocytes % 11.2; Neutrophils % 66.3; Nucleated RBC 0 %; Platelet Count 190 10^3/uL (130-400); RBC 4.04 10^6/uL (4.36-5.78); RDW 13.3 % (11.8-14.1); WBC 7.03 10^3/uL (4.4-10.8)
== END 2020-12-01 11:36 | disposition home or self-care (01) ==
LOC: LBN 11:35
PROVIDERS: PCP Emergency Medicine; Visit Provider Psychiatry & Neurology Psychiatry
DX: D64.9 Anemia, unspecified (principal)
CPT/HCPCS: 85025

== ENCOUNTER 2020-12-22 12:57 | Outpatient (REF) | payer MEDICARE, MEDICAID, SELFPAY ==
[2020-12-22 13:48] LABS: Abs Immature Grans 0.03 10^3/uL (0.0-0.06); Absolute Basophil Count 0.07 10^3/uL (0.0-0.2); Absolute Eosinophil Count 0.28 10^3/uL (0.0-0.7); Absolute Lymphocyte Count 1.18 10^3/uL (1.2-3.4); Absolute Monocyte Count 0.72 10^3/uL (0.1-0.8); Absolute Neutrophil Count 5.02 10^3/uL (1.2-6.7); Eosinophils % 3.8; HCT 40.7 % (40.0-50.0); HGB 12.7 g/dL (13.5-17.5); Immature Grans % 0.4; Lymphocytes % 16.2; MCH 29.7 pg (27.0-33.0); MCHC 31.2 % (32.0-36.0); MCV 95.3 fL (80-95); MPV 12.3 fL (8.0-11.0); Monocytes % 9.9; Neutrophils % 68.7; Nucleated RBC 0 %; Platelet Count 206 10^3/uL (130-400); RBC 4.27 10^6/uL (4.36-5.78); RDW 13.5 % (11.8-14.1); RDW-SD 47.3 fL
== END 2020-12-22 12:58 | disposition home or self-care (01) ==
LOC: LBN 12:57
PROVIDERS: PCP Emergency Medicine; Visit Provider Psychiatry & Neurology Psychiatry
DX: D64.9 Anemia, unspecified (principal)
CPT/HCPCS: 85025

== ENCOUNTER 2021-01-12 11:21 | Outpatient (REF) | payer MEDICARE, MEDICAID, SELFPAY ==
[2021-01-12 13:35] LABS: Abs Immature Grans 0.02 10^3/uL (0.0-0.06); Absolute Basophil Count 0.07 10^3/uL (0.0-0.2); Absolute Eosinophil Count 0.25 10^3/uL (0.0-0.7); Absolute Lymphocyte Count 1.13 10^3/uL (1.2-3.4); Absolute Monocyte Count 0.72 10^3/uL (0.1-0.8); Absolute Neutrophil Count 6.63 10^3/uL (1.2-6.7); Basophils % 0.8; Eosinophils % 2.8; HCT 41.6 % (40.0-50.0); HGB 13.1 g/dL (13.5-17.5); Immature Grans % 0.2; Lymphocytes % 12.8; MCH 29.8 pg (27.0-33.0); MCHC 31.5 % (32.0-36.0); MCV 94.5 fL (80-95); Monocytes % 8.2; Neutrophils % 75.2; Nucleated RBC 0 %; Platelet Count 244 10^3/uL (130-400); RDW 13.6 % (11.8-14.1); RDW-SD 47.8 fL; WBC 8.82 10^3/uL (4.4-10.8)
== END 2021-01-12 11:22 | disposition home or self-care (01) ==
LOC: LBN 11:21
PROVIDERS: PCP Emergency Medicine; Visit Provider Psychiatry & Neurology Psychiatry
DX: D64.89 Other specified anemias (principal)
CPT/HCPCS: 85025

== ENCOUNTER 2021-01-29 13:20 | Outpatient (REF) | payer MEDICARE, MEDICAID, SELFPAY ==
[2021-01-29 16:42] LABS: Abs Immature Grans 0.03 10^3/uL (0.0-0.06); Absolute Basophil Count 0.07 10^3/uL (0.0-0.2); Absolute Eosinophil Count 0.27 10^3/uL (0.0-0.7); Absolute Monocyte Count 0.96 10^3/uL (0.1-0.8); Absolute Neutrophil Count 9.24 10^3/uL (1.2-6.7); Basophils % 0.6; Eosinophils % 2.4; HCT 40.2 % (40.0-50.0); HGB 12.7 g/dL (13.5-17.5); Immature Grans % 0.3; MCH 30.2 pg (27.0-33.0); MCHC 31.6 % (32.0-36.0); MCV 95.7 fL (80-95); MPV 12.4 fL (8.0-11.0); Monocytes % 8.4; Neutrophils % 81.3; Nucleated RBC 0 %; Platelet Count 172 10^3/uL (130-400); RDW 14.1 % (11.8-14.1); RDW-SD 49.6 fL; WBC 11.37 10^3/uL (4.4-10.8)
== END 2021-01-29 13:21 | disposition home or self-care (01) ==
LOC: LBN 13:20
PROVIDERS: PCP Emergency Medicine; Visit Provider Psychiatry & Neurology Psychiatry
DX: D64.9 Anemia, unspecified (principal)
CPT/HCPCS: 85025

== ENCOUNTER 2021-02-08 13:05 | Outpatient (CLI) | payer MEDICARE, MEDICAID, SELFPAY ==
--- NOTE | 2021-02-08 13:30 | RT.EKG_ITS ---
APPROVED REPORT Exam: Resting ECG Reason for Exam: ischemic cardiomyopathy Patient Location: O HR:96 bpm ECG Measurements Heart Rate 96 AXIS MA 139 P 12 QRSd 137 QRS -45 QT 364 T 140 QTc 460 Conclusion Sinus rhythm...normal P axis, V-rate 50- 99 Left atrial enlargement...P, P'>60mS, <-0.15mV V1 Left bundle branch block...QRSd>120, broad/notched R Baseline wander in lead(s) V5
== END 2021-02-08 13:06 | disposition home or self-care (01) ==
LOC: DI.CARD 13:37
PROVIDERS: PCP Emergency Medicine; Referring Provider Emergency Medicine; Visit Provider Internal Medicine Cardiovascular Disease
DX: I25.10 Atherosclerotic heart disease of native coronary artery without angina pectoris (principal)
CPT/HCPCS: 93010

== ENCOUNTER → 2021-02-08 13:05 | Outpatient (BNVA) | payer MEDICARE, MEDICAID, SELFPAY | PROVIDERS: PCP Emergency Medicine; Referring Provider Emergency Medicine; Visit Provider Internal Medicine Cardiovascular Disease | DX: I25.10 Atherosclerotic heart disease of native coronary artery without angina pectoris (principal); Z95.1 Presence of aortocoronary bypass graft; I25.5 Ischemic cardiomyopathy; I44.7 Left bundle-branch block, unspecified | CPT/HCPCS: 93005; 99214; 99213 ==

== ENCOUNTER 2021-02-19 13:09 | Outpatient (REF) | payer MEDICARE, MEDICAID, SELFPAY ==
[2021-02-19 15:54] LABS: Abs Immature Grans 0.03 10^3/uL (0.0-0.06); Absolute Basophil Count 0.07 10^3/uL (0.0-0.2); Absolute Eosinophil Count 0.29 10^3/uL (0.0-0.7); Absolute Lymphocyte Count 1.08 10^3/uL (1.2-3.4); Absolute Monocyte Count 0.62 10^3/uL (0.1-0.8); Absolute Neutrophil Count 4.72 10^3/uL (1.2-6.7); Eosinophils % 4.3; HCT 42.8 % (40.0-50.0); HGB 13.4 g/dL (13.5-17.5); Immature Grans % 0.4; Lymphocytes % 15.9; MCH 29.6 pg (27.0-33.0); MCHC 31.3 % (32.0-36.0); MCV 94.5 fL (80-95); MPV 12.5 fL (8.0-11.0); Monocytes % 9.1; Neutrophils % 69.3; Nucleated RBC 0 %; Platelet Count 218 10^3/uL (130-400); RBC 4.53 10^6/uL (4.36-5.78); RDW 13.8 % (11.8-14.1); RDW-SD 48.6 fL; WBC 6.81 10^3/uL (4.4-10.8)
== END 2021-02-19 13:10 | disposition home or self-care (01) ==
LOC: LBN 13:09
PROVIDERS: PCP Emergency Medicine; Visit Provider Psychiatry & Neurology Psychiatry
DX: D64.9 Anemia, unspecified (principal)
CPT/HCPCS: 85025

== ENCOUNTER 2021-03-12 13:06 | Outpatient (REF) | payer MEDICARE, MEDICAID, SELFPAY ==
[2021-03-12 16:37] LABS: Abs Immature Grans 0.01 10^3/uL (0.0-0.06); Absolute Basophil Count 0.07 10^3/uL (0.0-0.2); Absolute Eosinophil Count 0.24 10^3/uL (0.0-0.7); Absolute Lymphocyte Count 1.12 10^3/uL (1.2-3.4); Absolute Monocyte Count 0.54 10^3/uL (0.1-0.8); Absolute Neutrophil Count 4.07 10^3/uL (1.2-6.7); Basophils % 1.2; HCT 40.4 % (40.0-50.0); HGB 12.8 g/dL (13.5-17.5); Immature Grans % 0.2; Lymphocytes % 18.5; MCH 29.7 pg (27.0-33.0); MCHC 31.7 % (32.0-36.0); MCV 93.7 fL (80-95); MPV 12.4 fL (8.0-11.0); Monocytes % 8.9; Neutrophils % 67.2; Nucleated RBC 0 %; Platelet Count 229 10^3/uL (130-400); RBC 4.31 10^6/uL (4.36-5.78); RDW 13.9 % (11.8-14.1); RDW-SD 48.4 fL; WBC 6.05 10^3/uL (4.4-10.8)
== END 2021-03-12 13:07 | disposition home or self-care (01) ==
LOC: LBN 13:06
PROVIDERS: PCP Emergency Medicine; Visit Provider Psychiatry & Neurology Psychiatry
DX: D64.9 Anemia, unspecified (principal)
CPT/HCPCS: 85025

== ENCOUNTER 2021-04-02 13:19 | Outpatient (REF) | payer MEDICARE, MEDICAID, SELFPAY ==
[2021-04-02 14:14] LABS: Abs Immature Grans 0.02 10^3/uL (0.0-0.06); Absolute Basophil Count 0.08 10^3/uL (0.0-0.2); Absolute Eosinophil Count 0.26 10^3/uL (0.0-0.7); Absolute Lymphocyte Count 0.91 10^3/uL (1.2-3.4); Absolute Monocyte Count 0.58 10^3/uL (0.1-0.8); Absolute Neutrophil Count 4.05 10^3/uL (1.2-6.7); Basophils % 1.4; Eosinophils % 4.4; HGB 12.6 g/dL (13.5-17.5); Immature Grans % 0.3; Lymphocytes % 15.4; MCH 29.4 pg (27.0-33.0); MCHC 31.5 % (32.0-36.0); MCV 93.2 fL (80-95); MPV 12.3 fL (8.0-11.0); Monocytes % 9.8; Neutrophils % 68.7; Nucleated RBC 0 %; Platelet Count 200 10^3/uL (130-400); RBC 4.29 10^6/uL (4.36-5.78); RDW-SD 47.4 fL
[2021-04-02 14:54] LABS: ALT 17 U/L (16-63); AST 11 U/L (15-37); Albumin 3.2 g/dL (3.4-5.0); Alkaline Phosphatase 82 U/L (46-116); Anion Gap 8.8 mmol/L (3-11); BUN 17 mg/dL (7-18); Bilirubin, Total 0.2 mg/dL (0.2-1.0); CO2 29.2 mmol/L (21.0-32.0); CREATININE 1.1 mg/dL (0.70-1.30); Calcium 8.8 mg/dL (8.5-10.1); Calculated LDL 79 mg/dL (<100); Chloride 103 mmol/L (98-107); Cholesterol 150 mg/dL (<200); Ferritin 31 ng/mL (26-388); Glucose 146 mg/dL (74-106); HDL Cholesterol 35 mg/dL (40-60); Potassium 3.8 mmol/L (3.5-5.1); Sodium 141 mmol/L (136-145); TSH 0.89 uIU/mL (0.36-3.74); Total Protein 6.2 g/dL (6.4-8.2); Triglyceride 181 mg/dL (<150); Vitamin B12 473 pg/mL (193-986)
[2021-04-02 15:06] LABS: VALPROIC ACID 40.4 ug/mL
[2021-04-02 15:15] LABS: FREE T4 1.04 ng/dL (0.76-1.46)
[2021-04-02 15:28] LABS: Vitamin D 25 Total 49.9 ng/mL (30-100)
[2021-04-02 18:18] LABS: Hemoglobin A1C 6.2 % (<5.7)
[2021-04-02 22:22] LABS: T3, Total 117 ng/dL (97-169)
== END 2021-04-02 13:20 | disposition home or self-care (01) ==
LOC: LBN 13:19
PROVIDERS: PCP Emergency Medicine; Visit Provider Psychiatry & Neurology Psychiatry
DX: F25.0 Schizoaffective disorder, bipolar type (principal)
CPT/HCPCS: 80053; 80061; 82306; 80164; 82607; 82728; 83036; 83735; 84439; 84443; 84480; 85025; 86140

== ENCOUNTER 2021-04-22 01:19 | Inpatient (IN) | payer MEDICARE, MEDICAID, SELFPAY ==
[2021-04-22] VITALS (84 sets, daily range): BP systolic 81–135; BP diastolic 36–77; PULSE 66–100; RESP 8–28; TEMP 35.9–37.1; O2SAT 88–98
--- NOTE | 2021-04-22 01:00 | RT.EKG_ITS ---
APPROVED REPORT Exam: Resting ECG Reason for Exam: SHORT OF BREATH Patient Location: E HR:93 bpm ECG Measurements Heart Rate 93 AXIS MT 175 P 58 QRSd 144 QRS -40 QT 378 T 136 QTc 470 Conclusion Sinus rhythm...normal P axis, V-rate 60- 99 Probable left atrial enlargement...P >50mS, <-0.10mV V1 Left bundle branch block...QRSd>120, broad/notched R negative cameronrbossa criteria
--- NOTE | 2021-04-22 01:00 | RT.EKG_ITS ---
APPROVED REPORT Exam: Resting ECG Reason for Exam: shortness of breath Patient Location: E HR:96 bpm ECG Measurements Heart Rate [address] 167 P 43 QRSd 144 QRS -40 QT 380 T 127 QTc 481 Conclusion Sinus rhythm...normal P axis, V-rate 60- 99 RBBB and LAFB...QRSd >120mS, axis(-40,240) LVH with secondary repolarization abnormality...multi-LVH criteria, abnrm ST-T
--- NOTE | 2021-04-22 01:15 | DI.RAD_ITS ---
Exam(s) XR PORTABLE CHEST AP EXAM: XR PORTABLE CHEST AP CLINICAL HISTORY: shortness of breath TECHNIQUE: COMPARISON: CR CHEST 2 VIEWS PA,LAT from 08/20/2017 FINDINGS: Portable AP chest at 0135 hours. The heart is at the upper limits of normal in size. Note is again made of previously described jimenez al sutures and mediastinal vascular clips consistent with prior CABG surgery. There is slight prominence of the pulmonary interstitial markings. No focal consolidation. IMPRESSION: Slight prominence of pulmonary markings, this may be due in part to technique. Possibility of minima l interstitial infiltrate or mild CHF is raised. Appropriate follow-up films requested. RADIATION DOSE DELIVERED: Total DLP
--- NOTE | 2021-04-22 01:21 | ED.GENADUL_ITS ---
Discharge Plan Disposition Patient Disposition: [facility] INPATIENT Condition: Stable Discharge Details Clinical Impression: Ischemic cardiomyopathy, Chronic obstructive lung disease, Hypoxia Primary Care Provider: João Metz ED Provider: Rudy Granado Home Meds and New Rx's Prescriptions: No Action tamsulosin [Flomax] 0.4 mg capsule 0.4 mg PO DAILY Qty: 90 RF: 3 clozapine 25 mg tablet 50 mg PO QAM AND QHS RF: 0 betamethasone dipropionate 0.05 % ointment 1 applic topical BID RF: 0 Entresto 49-51 mg tablet 1 tab PO BID Qty: 180 RF: 5 (DME) blood-glucose meter 1 EACH misc 1 ea Miscellaneous ONCE Qty: 1 RF: 0 (DME) OneTouch Ultra Test 1 EACH strip 1 ea Miscellaneous DAILY Qty: 90 RF: 0 (DME) blood-glucose meter [OneTouch UltraMini] 1 EACH kit 1 ea Miscellaneous DAILY Qty: 1 RF: 0 clozapine 100 mg tablet 100 mg PO QAM AND QHS RF: 0 (DME) Blood Glucose Test Strip 1 ea Miscellaneous DAILY Qty: 100 RF: 4 (DME) lancets 28 gauge misc 1 ea Miscellaneous DAILY Qty: 100 RF: 3 (DME) lancets [OneTouch UltraSoft Lancets] Misc 1 ea Miscellaneous DAILY Qty: 90 RF: 3 aspirin [Ecotrin Low Strength] 81 mg tablet,delayed release (DR/EC) 81 mg PO DAILY Qty: 90 RF: 3 cilostazol 100 mg tablet 100 mg PO BID Qty: 180 RF: 3 metformin 500 mg tablet 500 mg PO BID Qty: 180 RF: 3 metoprolol succinate 50 mg tablet extended release 24 hr 50 mg PO DAILY Qty: 90 RF: 4 ferrous sulfate 325 mg (65 mg iron) tablet 325 mg PO DAILY Qty: 90 RF: 4 multivitamin Tablet 1 tab PO DAILY Qty: 90 RF: 3 docusate sodium [Colace] 100 mg capsule 200 mg PO BID Qty: 180 RF: 4 albuterol sulfate 90 mcg/actuation HFA aerosol inhaler 2 puff IH QID Qty: 18 RF: 6 acetaminophen [Acetaminophen Extra Strength] 500 mg tablet 1,000 mg PO Q6H PRN Qty: 360 RF: 4 nitroglycerin 0.4 mg tablet, sublingual 0.4 mg sublingual Q5M PRN (Reason: chest pain) Qty: 20 RF: 1 furosemide [Lasix] 20 mg tablet 20 mg PO DAILY Qty: 90 RF: 4 pantoprazole 40 mg tablet,delayed release (DR/EC) 40 mg PO DAILY Qty: 90 RF: 4 Ensure Liquid See Rx Instructions PO .COMPLEX Qty: 5688 RF: 12 atorvastatin [Lipitor] 80 mg tablet 80 mg PO HS Qty: 90 RF: 3 divalproex 250 mg tablet,delayed release (DR/EC) 1,000 mg PO HS RF: 0 Medical Decision Making 80 yo male with hx of DM, ischemic cardiomyopathy, prior cabg, copd, who comes in with EMS with shortness of breath. States his daughter got yesterday and he was more active than he normally is. He started to have slowly worsening shortness of breath and so called ems and on ems arrival he was tachypneic and had oxygen saturations in the 70's. They gave him a duoneb and placed him on bipap and brought him here. On arrival he is able to speak in 4-5 word sentences. He denies fevers, chills, has had a dry cough, no chest pain or pressure. He has apical wheezing and crackles at the bases on lung exam. Mild pedal edema bilaterally no calf tenderness. His EF appears poor on bedside u/s and has diffuse bilateral b lines. Suspect chf based on these findings and possible mild copd, will give solumedrol and treat with lasix and reassess. Will obtain ecg and troponin to evaluate for acs. He has no pleuritic chest pain and exam is more consistent with chf so doubt PE. patient feeling better, on 2L NC and is 92%, xray read as negative though I feel there is evidence of pulmonary edema, negative troponin and probnp elevated. Will discuss with hospitalist for admission for further monitoring and care pt's second troponin minimally elevated, still no chest pain and suspect this is from his chf and likely type 2 mi, given no chest pain will give asa and hold heparin Differential Diagnosis Differential Diagnosis: nstemi, chf, copd Medical Records Medical records reviewed: Yes I reviewed the patient's medical records. Imaging Data Radiologic Study: Attestation: I personally reviewed and interpreted this imaging study as follows: Imaging: X-Ray Radiologist's impression: no acute findings Lab Data Lab results reviewed: Yes I reviewed the patient's lab results. ECG Data Attestation: I personally reviewed and interpreted this ECG (s) as follows: Prior ECG tracings: available for review Interpretation: sinus rhythm, rate of 93, lbbb, negative sgarbossa criteria 2nd ekg sinus rhythm rate of 96 still negative for sgarbossa criteria HPI General Mode of arrival: EMS . Date/Time Provider Initiated Documentation: 04/22/21 01:19 . Limitations to Documentation: no limitations . Information obtained by: patient . History of Present Illness 80 year old M presents to the emergency department with the chief complaint of shortness of breath, described as moderate, Patient started experiencing this hour(s) (3) and it has been constant. No relieving factors improve symptom(s), No exacerbating factors reported . Patient did receive the following treatments prior to arrival, other (duoneb with ems) Related Data Home Medications Medication Instructions Recorded Confirmed blood-glucose meter #1 ea 05/18/14 02/08/21 OneTouch Ultra Test #90 strip 05/19/14 02/08/21 blood-glucose meter [OneTouch #1 kit 06/14/14 02/08/21 UltraMini] clozapine 100 mg tablet 100 mg PO QAM AND QHS tab-cap 11/12/18 04/22/21 clozapine 25 mg tablet 50 mg PO QAM AND QHS tab 11/12/18 04/22/21 divalproex 250 mg tablet,delayed 1,000 mg PO HS 06/14/19 04/22/21 release blood sugar diagnostic #100 strip 04/10/20 02/08/21 lancets 28 gauge #100 ea 04/10/20 02/08/21 lancets #90 ea 04/11/20 02/08/21 aspirin 81 mg tablet,delayed 81 mg PO DAILY #90 tab 06/19/20 04/22/21 release tamsulosin 0.4 mg capsule 0.4 mg PO DAILY #90 cap 06/29/20 04/22/21 cilostazol 100 mg tablet 100 mg PO BID #180 tab-cap 07/10/20 04/22/21 metformin 500 mg tablet 500 mg PO BID #180 tab-cap 07/10/20 04/22/21 metoprolol succinate 50 mg 50 mg PO DAILY #90 tab 07/10/20 04/22/21 tablet,extended release 24 hr ferrous sulfate 325 mg (65 mg 325 mg PO DAILY #90 tab 08/11/20 04/22/21 iron) tablet betamethasone dipropionate 0.05 % 1 applic TOPICAL BID 08/17/20 04/22/21 topical ointment sacubitril 49 mg-valsartan 51 mg 1 tab PO BID #180 tab 08/17/20 04/22/21 tablet multivitamin 1 tab PO DAILY #90 tab-cap 09/05/20 04/22/21 docusate sodium 100 mg capsule 200 mg PO BID #180 cap 10/03/20 04/22/21 albuterol sulfate 90 mcg/actuation 2 puff IH QID #18 gm 10/06/20 04/22/21 aerosol inhaler acetaminophen 500 mg tablet 1,000 mg PO Q6H PRN #360 tab-cap 01/15/21 04/22/21 nitroglycerin 0.4 mg sublingual 0.4 mg SUBLINGUAL Q5M PRN #20 tab 01/18/21 04/22/21 tablet furosemide 20 mg tablet 20 mg PO DAILY #90 tab 01/20/21 04/22/21 pantoprazole 40 mg tablet,delayed 40 mg PO DAILY #90 tab-cap 01/20/21 04/22/21 release food supplemt, lactose-reduced See Rx Instructions PO .COMPLEX 02/08/21 02/08/21 #5688 ml atorvastatin 80 mg tablet 80 mg PO HS #90 tab-cap 04/12/21 04/22/21 Previous Rx's Medication Instructions Recorded blood sugar diagnostic #100 strip 04/10/20 lancets 28 gauge #100 ea 04/10/20 lancets #90 ea 04/11/20 aspirin 81 mg tablet,delayed 81 mg PO DAILY #90 tab 06/19/20 release tamsulosin 0.4 mg capsule 0.4 mg PO DAILY #90 cap 06/29/20 cilostazol 100 mg tablet 100 mg PO BID #180 tab-cap 07/10/20 metformin 500 mg tablet 500 mg PO BID #180 tab-cap 07/10/20 metoprolol succinate 50 mg 50 mg PO DAILY #90 tab 07/10/20 tablet,extended release 24 hr ferrous sulfate 325 mg (65 mg 325 mg PO DAILY #90 tab 08/11/20 iron) tablet sacubitril 49 mg-valsartan 51 mg 1 tab PO BID #180 tab 08/17/20 tablet multivitamin 1 tab PO DAILY #90 tab-cap 09/05/20 docusate sodium 100 mg capsule 200 mg PO BID #180 cap 10/03/20 albuterol sulfate 90 mcg/actuation 2 puff IH QID #18 gm 10/06/20 aerosol inhaler acetaminophen 500 mg tablet 1,000 mg PO Q6H PRN #360 tab-cap 01/15/21 nitroglycerin 0.4 mg sublingual 0.4 mg SUBLINGUAL Q5M PRN #20 tab 01/18/21 tablet furosemide 20 mg tablet 20 mg PO DAILY #90 tab 01/20/21 pantoprazole 40 mg tablet,delayed 40 mg PO DAILY #90 tab-cap 01/20/21 release food supplemt, lactose-reduced See Rx Instructions PO .COMPLEX 02/08/21 #5688 ml atorvastatin 80 mg tablet 80 mg PO HS #90 tab-cap 04/12/21 Allergies Allergy/AdvReac Type Severity Reaction Status Date / Time meperidine HCl [From Demerol] Allergy Unknown Verified 04/22/21 02:20 General Stated Complaint: Chest Pain KIMBERLEE: 2 Review of Systems All systems reviewed & are unremarkable except as noted in HPI and below Constitutional Constitutional: Denies chills, Denies fever(s) and Denies weakness Cardiovascular Cardiovascular: Denies chest pain Gastrointestinal Gastrointestinal: Denies abdominal pain, Denies nausea and Denies vomiting Neurologic Neurologic: Denies weakness PFSH All Active Problems (Updated 04/22/21 @ 02:28 by Rudy Granado MD) Hypoxia (Acute) Ischemic cardiomyopathy (Acute) Diabetic foot ulcer (Acute) Psoriasis (Chronic) History of appendectomy (Acute) History of coronary artery bypass surgery (Acute) Status post cholecystectomy (Acute) Status post hernia repair (Acute) Lower urinary tract symptoms (LUTS) (Acute) Hematuria (Acute) Total urinary incontinence (Acute 12/02/07) Smoker (Acute) Schizophrenia (Acute 10/19/13) Periods of severe hypomania and agitation Right leg claudication (Acute 09/06/14) Peripheral vascular disease (Acute 12/02/07) bilateral leg claudication. 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 Atherosclerosis of [place] coronary artery (Acute 12/02/07) s/p CABG 2004 with diminished ejection fraction. NSTEMI 06/07. EF 40% Anemia (Acute 03/11/12) Threatening behavior (Active 10/23/12) Surgical History Appendectomy Cholecystectomy Colonoscopy - MAC 05/14/12 Coronary Artery Bypass [place] (CABG) 2005 HERNIA REPAIR RIGHT Family History Mother No problems noted. Father Heart disease Brother No problems noted. Social History Smoking/Tobacco Use Status: Current every day Tobacco Type: cigarettes Tobacco: How many years used: 55 Quit status: not considering quitting Counseling given: patient declined Smoking risk assessment performed?: Yes Alcohol Intake: never Drug use: Never Caregiver/Support person: No Household members: none Pets and animals: No Sexually active: No Do you think of yourself as: straight/heterosexual Current gender identity: male What is your relationship status?: How often do you talk on the phone with friends or family?: three or more times per week How often do you attend tenriism or shinto services?: decline to answer Do you belong to any clubs or organized social groups?: yes Panel score (0-1 are the most socially isolated patients): 2 What type of physical activity do you participate in: none Justa/Latter Day: Latter-Day Seatbelt use: always Drive intox or ride w/intox chair car driver: No Do you feel safe at home: Yes Do you feel safe in your relationship?: Yes Exam Const General: no acute distress Orientation: alert HENMT Head: normal to inspection Ears: external ears normal General nose exam: external nose normal Mouth: moist mucous membranes Eyes General: appearance normal, both eyes and all related structures Neck Neck: normal visual inspection Chest Chest: normal inspection of the chest Resp Effort & Inspection: tachypneic, no tripod positioning and no use of accessory muscles Cardio Rate: regular rate GI Palpation: soft and nontender Skin General skin exam: no rashes or lesions noted Neuro General: patient alert and patient oriented x3 Extrem General: normal to inspection Psych Mental Status: mental status grossly normal Course Vital Signs Vital signs: Vital Signs Temperature 36.3 C L 04/22/21 01:18 Pulse 100 H 04/22/21 01:18 Respiratory Rate 20 04/22/21 01:18 Blood Pressure 125/66 04/22/21 01:18 Pulse Oximetry 88 L 04/22/21 01:18 Temperature 36.3 C L 04/22/21 01:18 Temperature Source Oral 04/22/21 01:18 Pulse 100 H 04/22/21 01:18 Respiratory Rate 20 04/22/21 01:18 Blood Pressure 125/66 04/22/21 01:18 Pulse Oximetry 88 L 04/22/21 01:18 Oxygen Delivery Method Room Air 04/22/21 01:18 Oxygen Flow Rate 0 04/22/21 01:18 Pain Level 1 04/22/21 01:18 Lab/Test Results Lab/Test Results: 04/22/21 01:08 Blood Blood Culture - Pending 04/22/21 01:08 Blood Blood Culture - Pending
[2021-04-22 01:30] LABS: Source Nasal/Nares
[2021-04-22 01:32] LABS: Abs Immature Grans 0.05 10^3/uL (0.0-0.06); Absolute Eosinophil Count 0.17 10^3/uL (0.0-0.7); BE (Venous) 5 mmol/L (-2-3); Basophils % 0.7; Eosinophils % 1.4; HCO3 (Venous) 32 mmol/L (23-28); HCT 39.5 % (40.0-50.0); HGB 12.2 g/dL (13.5-17.5); Immature Grans % 0.4; Lymphocytes % 5.7; MCH 29.8 pg (27.0-33.0); MCHC 30.9 % (32.0-36.0); MCV 96.3 fL (80-95); MPV 11.2 fL (8.0-11.0); Monocytes % 7.7; Neutrophils % 84.1; Nucleated RBC 0 %; O2 Sat (Venous) 45 %; Platelet Count 205 10^3/uL (130-400); RDW 13.9 % (11.8-14.1); RDW-SD 49.3 fL; TCO2 (Venous) 30 mmol/L (24-29); WBC 12.28 10^3/uL (4.4-10.8); pO2 (Venous) 27 mmHg
[2021-04-22 01:33] LABS: Absolute Basophil Count 0.09 10^3/uL (0.0-0.2); Absolute Monocyte Count 0.95 10^3/uL (0.1-0.8); Absolute Neutrophil Count 10.33 10^3/uL (1.2-6.7)
[2021-04-22 01:39] LABS: pCO2 (Venous) 65 mmHg (41-51)
[2021-04-22] MEDS: methylPREDNISolone SUCC 125 MG VIAL IVP (01:39)
[2021-04-22] MEDS: Furosemide 100 MG/10 ML VIAL 80 MG IVP (01:41)
--- NOTE | 2021-04-22 01:42 | DI.VRAD_ITS ---
PROCEDURE INFORMATION: Exam: XR Chest Exam date and time: 04/22/2021 1:21 AM Age: 80 years old Clinical indication: Shortness of breath; Prior surgery TECHNIQUE: Imaging protocol: XR of the chest. Views: 1 view. COMPARISON: CR CHEST 2 VIEWS PA,LAT 08/20/2017 3:36 PM FINDINGS: Lungs: Unremarkable. No consolidation. Pleural spaces: Unremarkable. No pleural effusion. No pneumothorax. Heart/Mediastinum: Unremarkable. No cardiomegaly. Bones/joints: Median sternotomy wires noted. IMPRESSION: No acute finding. Dictated and Authenticated by: Rudy Tompkins MD. Ordering:KATE Grant MD
[2021-04-22 01:48] LABS: VALPROIC ACID 40.1 ug/mL
[2021-04-22 02:00] LABS: ALT 16 U/L (16-63); AST 12 U/L (15-37); Albumin 3.3 g/dL (3.4-5.0); Alkaline Phosphatase 74 U/L (46-116); Anion Gap 6.6 mmol/L (3-11); BUN 16 mg/dL (7-18); Bilirubin, Total 0.3 mg/dL (0.2-1.0); CO2 31.4 mmol/L (21.0-32.0); CREATININE 1.2 mg/dL (0.70-1.30); Calcium 8.5 mg/dL (8.5-10.1); Chloride 98 mmol/L (98-107); Estimated GFR 58.26 (mL/min/1.73m2); Glucose 196 mg/dL (74-106); NT-proBNP 2280 pg/mL (<300); Potassium 4.6 mmol/L (3.5-5.1); Sodium 136 mmol/L (136-145); Total Protein 6.8 g/dL (6.4-8.2); Troponin I < 50 ng/L (<or=60)
[2021-04-22 02:12] LABS: COVID-19 PCR Negative (Negative)
[2021-04-22 02:39] LABS: Bilirubin Negative (Negative); Blood Negative (Negative); Clarity Clear (Clear); Glucose Negative (Negative); Ketones Negative (Negative); Leukocyte Esterase Negative (Negative); Nitrite Negative (Negative); Urobilinogen 0.2 EU/dL (Up TO 0.2)
[2021-04-22 04:55] LABS: Troponin I 106 ng/L (<or=60)
--- NOTE | 2021-04-22 06:45 | W.PM.HP.N ---
Date of service: 04/22/21 Time of Service: 06:45 Assessment and Plan Assessment and plan (1) Acute respiratory failure: Status: Acute Assessment and plan: Secondary to acute volume overload /CHF in the background of ischemic cardiomyopathy. Diuresed well after initial 80 mg IV lasix and now maintaining adequate O2 saturations on 2L O2 per NC Qualifiers: Respiratory failure complication: unspecified whether with hypoxia or hypercapnia Qualified Code(s): J96.00 - Acute respiratory failure, unspecified whether with hypoxia or hypercapnia (2) Ischemic cardiomyopathy: Status: Acute Assessment and plan: Echocardiogram ordered. See CHF (3) Smoker: Status: Acute Assessment and plan: Has cut back to several cigarettes daily. Encourage ongoing efforts. (4) Schizophrenia: Status: Acute Assessment and plan: Cont Clozaril. No behavioral issues since presentation. (5) Peripheral vascular disease: Status: Acute Assessment and plan: Hold pletal given acute CHF; contraindicated in heart failure. (6) Diabetes mellitus: Status: Acute Assessment and plan: He is on metformin routinely; continue. Random glucose of 196 on presentation. Suspect he will have glucose elevations secondary to IV steroid. SS insulin correction dosing. Carb controlled diet. (7) Chronic obstructive lung disease: Status: Acute Assessment and plan: Questionable component of exacerbation. REceiving a Duoneb in ED. Discuss compatability of ipratropium and clozaril. PRN albuterol (8) Coronary atherosclerosis of [place] coronary vessel: Status: Acute Assessment and plan: H/o CABG. Requests no cardiac cath or aggressive therapy. Cont ASA daily and metoprolol. (9) Anemia: Status: Acute Assessment and plan: Monitor Hgb. (10) Acute congestive heart failure: Status: Acute Assessment and plan: In background of ischemic cardiomyopathy. Cont Entresto, BB. Demand ischemia as reflected in mild troponin elevation; monitor. Lasix 40mg IV daily. Monitor daily wt. Low Na diet. Echocardiogram on Friday. History of Present Illness History of Present Illness Chief Complaint: Shortness of breath Narrative: This is an 80 yo male with a PMH of CAD/CABG, ischemic cardiomyopathy, COPD, DM2, tobacco abuse syndrome, PAD, drug-induced parkinsonism, anemia, schizophrenia. He reports that he attended his daughters wedding the day prior to presention to the ED and was more active than usual. He doesn't beieve he ate more salty foods than usual. He has noted increasing SOA / GALLAGHER and he called EMS. EMS noted a RA sataration in the 70's and he was tachypneic. A Duoneb treatment was given and BiPAP initiated. In the ED he was reportedly able to speak in 4-5 word sentences. He was noted to have apical wheezing and crackles in the bases. Bedside US showed a likely reduced EF and the presence of diffuse B lines. IV solumedrol administered. Lasix 80mg IV given. He denied fever/chills, sputum. + dry cough. No CP/palpitations. He was stabilized on 2L supplemental O2 per NC. CXR negative for acute processes. WBC count mildly elevated at 12.28. Hgb 12.2. ABG: pH 7.30, VBG pCO2 65, VBG pO2 27. Lyites normal. Creatinine 1.2. Troponin < 50, then 106. Third troponin pending. [id number]. According to his recent office visit with his PCP, he is firm in not wanting more aggressive care regarding his CAD: no cardiac cath. He has a h/o of an EF of 20-30% and a positive MPI. He uses a SL nitro appx once a week and this helps with his GALLAGHER. Review of Systems All systems reviewed & are unremarkable except as noted in HPI and below PFSH All Active Problems (Updated 04/22/21 @ 07:56 by Charly Muñoz MD) Acute congestive heart failure (Acute) Acute respiratory failure (Acute) Hypoxia (Acute) Ischemic cardiomyopathy (Acute) Diabetic foot ulcer (Acute) Psoriasis (Chronic) History of appendectomy (Acute) History of coronary artery bypass surgery (Acute) Status post cholecystectomy (Acute) Status post hernia repair (Acute) Lower urinary tract symptoms (LUTS) (Acute) Hematuria (Acute) Total urinary incontinence (Acute 12/02/07) Smoker (Acute) Schizophrenia (Acute 10/19/13) Periods of severe hypomania and agitation Right leg claudication (Acute 09/06/14) Peripheral vascular disease (Acute 12/02/07) bilateral leg claudication. 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 Atherosclerosis of [place] coronary artery (Acute 12/02/07) s/p CABG 2004 with diminished ejection fraction. NSTEMI 06/07. EF 40% Anemia (Acute 03/11/12) Threatening behavior (Active 10/23/12) Surgical History Appendectomy Cholecystectomy Colonoscopy - MAC 05/14/12 Coronary Artery Bypass Gaft (CABG) 2005 HERNIA REPAIR RIGHT Family History Mother No problems noted. Father Heart disease Brother No problems noted. Social History Smoking/Tobacco Use Status: Current every day Tobacco Type: cigarettes Tobacco: How many years used: 55 Quit status: not considering quitting Counseling given: patient declined Smoking risk assessment performed?: Yes Alcohol Intake: never Drug use: Never Caregiver/Support person: No Household members: none Pets and animals: No Sexually active: No Do you think of yourself as: straight/heterosexual Current gender identity: male What is your relationship status?: How often do you talk on the phone with friends or family?: three or more times per week How often do you attend jewish or jainism services?: decline to answer Do you belong to any clubs or organized social groups?: yes Panel score (0-1 are the most socially isolated patients): 2 What type of physical activity do you participate in: none Justa/Congregational: Voodoo Seatbelt use: always Drive intox 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 Do you feel safe at home: Yes Do you feel safe in your relationship?: Yes Meds Allergies and Home Medications Allergies Allergy/AdvReac Type Severity Reaction Status Date / Time meperidine HCl [From Demerol] Allergy Unknown Verified 04/22/21 02:20 Home Medications Medication Instructions Recorded Confirmed Type blood-glucose meter #1 ea 05/18/14 02/08/21 History OneTouch Ultra Test #90 strip 05/19/14 02/08/21 History blood-glucose meter [OneTouch #1 kit 06/14/14 02/08/21 History UltraMini] clozapine 100 mg tablet 100 mg PO QAM AND QHS tab-cap 11/12/18 04/22/21 History clozapine 25 mg tablet 50 mg PO QAM AND QHS tab 11/12/18 04/22/21 History divalproex 250 mg tablet,delayed 1,000 mg PO HS 06/14/19 04/22/21 History release blood sugar diagnostic #100 strip 04/10/20 02/08/21 Rx lancets 28 gauge #100 ea 04/10/20 02/08/21 Rx lancets #90 ea 04/11/20 02/08/21 Rx aspirin 81 mg tablet,delayed 81 mg PO DAILY #90 tab 06/19/20 04/22/21 Rx release tamsulosin 0.4 mg capsule 0.4 mg PO DAILY #90 cap 06/29/20 04/22/21 Rx cilostazol 100 mg tablet 100 mg PO BID #180 tab-cap 07/10/20 04/22/21 Rx metformin 500 mg tablet 500 mg PO BID #180 tab-cap 07/10/20 04/22/21 Rx metoprolol succinate 50 mg 50 mg PO DAILY #90 tab 07/10/20 04/22/21 Rx tablet,extended release 24 hr ferrous sulfate 325 mg (65 mg 325 mg PO DAILY #90 tab 08/11/20 04/22/21 Rx iron) tablet betamethasone dipropionate 0.05 % 1 applic TOPICAL BID 08/17/20 04/22/21 History topical ointment sacubitril 49 mg-valsartan 51 mg 1 tab PO BID #180 tab 08/17/20 04/22/21 Rx tablet multivitamin 1 tab PO DAILY #90 tab-cap 09/05/20 04/22/21 Rx docusate sodium 100 mg capsule 200 mg PO BID #180 cap 10/03/20 04/22/21 Rx albuterol sulfate 90 mcg/actuation 2 puff IH QID #18 gm 10/06/20 04/22/21 Rx aerosol inhaler acetaminophen 500 mg tablet 1,000 mg PO Q6H PRN #360 tab-cap 01/15/21 04/22/21 Rx nitroglycerin 0.4 mg sublingual 0.4 mg SUBLINGUAL Q5M PRN #20 tab 01/18/21 04/22/21 Rx tablet furosemide 20 mg tablet 20 mg PO DAILY #90 tab 01/20/21 04/22/21 Rx pantoprazole 40 mg tablet,delayed 40 mg PO DAILY #90 tab-cap 01/20/21 04/22/21 Rx release food supplemt, lactose-reduced See Rx Instructions PO .COMPLEX 02/08/21 02/08/21 Rx #5688 ml atorvastatin 80 mg tablet 80 mg PO HS #90 tab-cap 04/12/21 04/22/21 Rx Exam Narrative Exam Narrative: Asleep. Easily woken with verbal stimuli. Const General: comfortable and no acute distress Nutritional Appearance: average body habitus Orientation: alert, oriented to person and oriented to place HENMT Head: normal to inspection and normocephalic Ears: hearing grossly normal bilaterally Eyes General: appearance normal, both eyes and all related structures Sclera: sclerae normal Neck Neck: full ROM and no JVD Resp Auscultation: crackles (faint) bilaterally and diminished lung sounds Cardio Rate: regular rate Rhythm: regular rhythm Heart Sounds: S1 normal and S2 normal GI Inspection: normal to inspection Palpation: soft and nontender Skin General skin exam: no rashes or lesions noted Extrem General: no pedal edema and no calf tenderness Psych Appearance: grossly normal Speech and Movement: speech clear Affect: normal affect Results Labs Result diagrams: 04/22/21 01:20 04/22/21 01:20 Labs: Laboratory Results - last 24 hr 04/22/21 04/22/21 04/22/21 01:15 01:20 01:20 WBC RBC Hgb Hct MCV MCH MCHC RDW Plt Count MPV Immature Gran % Neutrophils % Lymphocytes % Monocytes % Eosinophils % Basophils % Nucleated RBC % Absolute Neutrophils Absolute Lymphocytes Absolute Monocytes Absolute Eosinophils Absolute Basophils VBG pH VBG pCO2 VBG pO2 VBG HCO3 VBG Total CO2 VBG O2 Saturation VBG Base Excess Sodium 136 Potassium 4.6 Chloride 98 Carbon Dioxide 31.4 Anion Gap 6.6 BUN 16 Creatinine 1.2 Estimated GFR/1.73 m2 58.26 Glucose 196 H Calcium 8.5 Magnesium 2.0 Total Bilirubin 0.3 AST 12 L ALT 16 Alkaline Phosphatase 74 Troponin I < 50 NT-Pro-B Natriuret Pep 2280 H Total Protein 6.8 Albumin 3.3 L TSH 1.20 Urine Color Urine Clarity Urine pH Ur Specific [place] Urine Protein Urine Ketones Urine Blood Urine Nitrite Urine Bilirubin Urine Urobilinogen Ur Leukocyte Esterase Urine Glucose Valproic Acid 40.1 COVID-19 Source Nasal/Nares SARS-CoV-2 (PCR) Negative 04/22/21 04/22/21 04/22/21 01:20 01:20 02:20 WBC 12.28 H RBC 4.10 L Hgb 12.2 L Hct 39.5 L MCV 96.3 H MCH 29.8 MCHC 30.9 L RDW 13.9 Plt Count 205 MPV 11.2 H Immature Gran % 0.4 Neutrophils % 84.1 Lymphocytes % 5.7 Monocytes % 7.7 Eosinophils % 1.4 Basophils % 0.7 Nucleated RBC % 0 Absolute Neutrophils 10.33 H Absolute Lymphocytes 0.70 L Absolute Monocytes 0.95 H Absolute Eosinophils 0.17 Absolute Basophils 0.09 VBG pH 7.30 L VBG pCO2 65 H* VBG pO2 27 VBG HCO3 32 H VBG Total CO2 30 H VBG O2 Saturation 45 VBG Base Excess 5 H Sodium Potassium Chloride Carbon Dioxide Anion Gap BUN Creatinine Estimated GFR/1.73 m2 Glucose Calcium Magnesium Total Bilirubin AST ALT Alkaline Phosphatase Troponin I NT-Pro-B Natriuret Pep Total Protein Albumin TSH Urine Color Yellow Urine Clarity Clear Urine pH 6.0 Ur Specific [place] 1.020 Urine Protein Negative Urine Ketones Negative Urine Blood Negative Urine Nitrite Negative Urine Bilirubin Negative Urine Urobilinogen 0.2 Ur Leukocyte Esterase Negative Urine Glucose Negative Valproic Acid COVID-19 Source SARS-CoV-2 (PCR) 04/22/21 04:00 WBC RBC Hgb Hct MCV MCH MCHC RDW Plt Count MPV Immature Gran % Neutrophils % Lymphocytes % Monocytes % Eosinophils % Basophils % Nucleated RBC % Absolute Neutrophils Absolute Lymphocytes Absolute Monocytes Absolute Eosinophils Absolute Basophils VBG pH VBG pCO2 VBG pO2 VBG HCO3 VBG Total CO2 VBG O2 Saturation VBG Base Excess Sodium Potassium Chloride Carbon Dioxide Anion Gap BUN Creatinine Estimated GFR/1.73 m2 Glucose Calcium Magnesium Total Bilirubin AST ALT Alkaline Phosphatase Troponin I 106 H* NT-Pro-B Natriuret Pep Total Protein Albumin TSH Urine Color Urine Clarity Urine pH Ur Specific [place] Urine Protein Urine Ketones Urine Blood Urine Nitrite Urine Bilirubin Urine Urobilinogen Ur Leukocyte Esterase Urine Glucose Valproic Acid COVID-19 Source SARS-CoV-2 (PCR) Last Vital Signs Temp 36.3 C L 04/22/21 01:18 Pulse 89 04/22/21 06:30 Resp 18 04/22/21 06:30 BP 106/49 L 04/22/21 06:30 Pulse Ox 94 04/22/21 06:30
[2021-04-22] MEDS: Aspirin 81 MG CHEW 324 MG CH (06:53)
[2021-04-22 07:05] LABS: Procalcitonin < 0.1 ng/mL
[2021-04-22 09:14] LABS: Abs Immature Grans 0.02 10^3/uL (0.0-0.06); Absolute Basophil Count 0.01 10^3/uL (0.0-0.2); Absolute Eosinophil Count 0.01 10^3/uL (0.0-0.7); Absolute Lymphocyte Count 0.36 10^3/uL (1.2-3.4); Absolute Monocyte Count 0.07 10^3/uL (0.1-0.8); Absolute Neutrophil Count 4.84 10^3/uL (1.2-6.7); Basophils % 0.2; Eosinophils % 0.2; HCT 37.6 % (40.0-50.0); HGB 12.2 g/dL (13.5-17.5); Immature Grans % 0.4; Lymphocytes % 6.8; MCH 30.6 pg (27.0-33.0); MCHC 32.4 % (32.0-36.0); MCV 94.2 fL (80-95); MPV 11.1 fL (8.0-11.0); Monocytes % 1.3; Neutrophils % 91.1; Nucleated RBC 0 %; Platelet Count 206 10^3/uL (130-400); RBC 3.99 10^6/uL (4.36-5.78); RDW 13.7 % (11.8-14.1); RDW-SD 47.7 fL; WBC 5.31 10^3/uL (4.4-10.8)
[2021-04-22] MEDS: Insulin Aspart 300 UNITS/3 ML PEN SC ×3 (09:15→17:05)
[2021-04-22 09:29] LABS: Anion Gap 5.2 mmol/L (3-11); BUN 21 mg/dL (7-18); CO2 30.8 mmol/L (21.0-32.0); CREATININE 1.2 mg/dL (0.70-1.30); Calcium 8.7 mg/dL (8.5-10.1); Chloride 98 mmol/L (98-107); Estimated GFR 58.26 (mL/min/1.73m2); Glucose 184 mg/dL (74-106); Potassium 3.9 mmol/L (3.5-5.1); Sodium 134 mmol/L (136-145)
[2021-04-22 09:31] LABS: Troponin I 146 ng/L (<or=60)
[2021-04-22] MEDS: Furosemide 40 MG/4 ML VIAL IVP (09:45)
[2021-04-22] MEDS: metFORMIN 500 MG TAB PO ×2 (09:45→21:00)
[2021-04-22] MEDS: predniSONE 20 MG TAB 40 MG PO (09:45)
[2021-04-22] MEDS: Sacubitril/Valsartan 24 mg/26 mg TAB 2 EACH PO ×2 (09:45→20:59)
[2021-04-22] MEDS: Enoxaparin 40 MG/0.4 ML SYR SC (09:45)
--- NOTE | 2021-04-22 09:45 | RT.EKG_ITS ---
APPROVED REPORT Exam: Resting ECG Reason for Exam: increasing trop Patient Location: I HR:98 bpm ECG Measurements Heart Rate 98 AXIS SC 182 P 51 QRSd 144 QRS -44 QT 364 T 139 QTc 465 Conclusion Sinus rhythm...normal P axis, V-rate 60- 99 Left bundle branch block...QRSd>120, broad/notched R
[2021-04-22] MEDS: Pantoprazole 40 MG TABCR PO (09:46)
[2021-04-22] MEDS: Tamsulosin 0.4 MG CAPCR PO (09:46)
[2021-04-22] MEDS: Metoprolol CR 50 MG TABCR PO (09:46)
[2021-04-22] MEDS: Multivitamin TAB 1 TAB PO (09:47)
[2021-04-22] MEDS: Docusate Sodium 100 MG CAP 200 MG PO ×2 (09:47→20:59)
[2021-04-22] MEDS: Albuterol HFA 8 GM 60 PUFF INH IH ×3 (10:07→21:00)
--- NOTE | 2021-04-22 11:47 | PDOC.CMIN ---
- If Service Date Differs Date of service: 04/22/21 Time of Service: 11:47 Care Management Initial Assess REASON FOR HOSPITALIZATION:: CHF. PAST MEDICAL HISTORY/PAST SURGICAL HISTORY:: All Active Problems: Acute congestive heart failure (Acute), Acute respiratory failure (Acute), Hypoxia (Acute), Ischemic cardiomyopathy (Acute), Diabetic foot ulcer (Acute), Psoriasis (Chronic), History of appendectomy (Acute), History of coronary artery bypass surgery (Acute),. Status post cholecystectomy (Acute), Status post hernia repair (Acute),. Lower urinary tract symptoms (LUTS) (Acute), Hematuria (Acute),. Total urinary incontinence (Acute 12/02/07), Smoker (Acute), Schizophrenia (Acute 10/19/13) - Periods of severe hypomania and agitation, Right leg claudication (Acute 09/06/14), Peripheral vascular disease (Acute 12/02/07) - bilateral leg claudication. Wants no intervention, Peripheral neuralgia (Acute 12/02/07), Parkinsonism due to drug (Acute 11/11/17),. 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 Left leg claudication (Acute 09/06/14), Diabetes mellitus (Acute) - periphreal neuropathy of feet, Chronic obstructive lung disease (Acute 12/02/07), Cataract (Acute), Coronary atherosclerosis of [place] coronary vessel (Acute 12/02/07) - s/p CABG 2004 with diminished ejection fraction., Atherosclerosis of [place] coronary artery (Acute 12/02/07) -. 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 - NSTEMI 06/07. EF 40%,. Anemia (Acute 03/11/12), and Threatening behavior (Active 10/23/12). Surgical History: Appendectomy, Cholecystectomy, Colonoscopy - MAC. 05/14/12, Coronary Artery Bypass Gaft (CABG) - 2005, and HERNIA REPAIR - RIGHT. PREVIOUS FUNCTIONAL STATUS/SOCIAL/FAMILY SUPPORTS:: Ryan lives alone in [place], [place]. He is and has three adult daughters. Ashleigh, his daughter who lives locally, is supportive of him. Ryan also has supports from the [employer] [facility] at [facility] and Home Health. CURRENT FUNCTIONAL STATUS:: Ryan is laying in bed watching television when CM comes to meet with him. He is pleasant and easily engages in conversation. He shares that he has COPD and hopes he will not have another episode of shortness of breath after returning home from the hospital. ADVANCE DIRECTIVES:: None on file; CM offers an Advance Directives and patient declines. Has patient been provided with info about the portal/API?: Yes Did the patient sign up for the portal?: No CODE STATUS:: Full Code INSURANCE COVERAGE / FINANCIAL ISSUES:: Medicare and Medicaid. CURRENT HOME/COMMUNITY SERVICES/EQUIPMENT:: Ryan has a rollator. He has Home Health nursing (every 3 weeks) and a Home Health aide who comes and cleans his home and washes his clothes every other week. His medications are delivered to him on Tuesdays by the [employer] [facility] at [facility], and his [employer] rifle case repairer takes him on outings once a week. Ryan also has [facility]. PRIMARY CARE PHYSICIAN:: João Metz MD ([facility]). POTENTIAL DISCHARGE NEEDS:: Follow up appointment with PCP, resumption of , [facility], and [facility] services, and follow up plan of care. PATIENT/FAMILY EDUCATION NEEDS:: Review discharge instructions, limitations, medications, and follow up plan of care; discuss Ask Me Three and self management. ANTICIPATED BARRIERS TO DISCHARGE:: No anticipated barriers to discharge at this time. TRANSPORTATION:: Via private vehicle with daughterAshleigh. PLAN:: Ryan will likely be discharged home with a resumption of services when medically cleared by provider. He will follow up with his PCP and discharge plan of care as directed. He will be transported home by his daughter, Ashleigh, via private vehicle when ready. CM will continue to support Ryan and any discharge planning needs.
[2021-04-22 12:14] LABS: Troponin I 136 ng/L (<or=60)
[2021-04-22] MEDS: Divalproex 500 MG TABEC 1000 MG PO (21:03)
[2021-04-22] MEDS: Atorvastatin 40 MG TAB 80 MG PO (21:04)
[2021-04-23] VITALS (10 sets, daily range): BP systolic 99–127; BP diastolic 56–79; PULSE 74–90; RESP 14–18; TEMP 35.9–37.1; O2SAT 93–96
--- NOTE | 2021-04-23 | DI.US_ITS ---
APPROVED REPORT EXAM: Comprehensive 2D, Doppler, and color-flow Echocardiogram Patient Location: In-Patient Room/Bed: 212 Laboratory Sampler: Jailyn Lagunas RDCS (AE) Indications: CHF, Ischemic cardiomyopathy, CAD, CABG, COPD, Smoker Other Information Study Quality: Fair. Technically limited study due to body habitus. Conclusion Normal left ventricular size and wall thickness. Estimated ejection fraction is 30 to 35%. The infe rior posterior and posterolateral acuna are hypocontractile Normal right ventricular size and systolic function The left atrium is mildly dilated. Right atrial size is normal The aortic valve is trileaflet and sclerotic without stenosis or regurgitation Mild mitral annular calcification. Trace to mild mitral regurgitation Normal tricuspid valve with trace regurgitation. Estimated right ventricular systolic pressure is n ormal at 26 mmHg Wall motion Left Ventricle The left ventricle is normal size. Left ventricular systolic function is moderately decreased. There is normal left ventricular wall thickness. Inferior posterior posterolateral hypokinesis LVEF is 30- 35%. Right Ventricle The right ventricle is normal size. The right ventricular systolic function is normal. Atria Left atrium is mildly dilated. The right atrium size is normal. Aortic Valve The Aortic valve is sclerotic. Aortic valve is trileaflet. There is no aortic valvular stenosis. No a ortic regurgitation is present. Mitral Valve Mild mitral annular calcification. No evidence of mitral valve stenosis. Trace to mild mitral regurgi tation. Tricuspid Valve The tricuspid valve is normal in structure. There is no tricuspid valve stenosis. Trace tricuspid reg urgitation. Pulmonic Valve The pulmonary valve is normal in structure. There is no pulmonic valvular stenosis. Trace pulmonic re gurgitation. Great Vessels The aortic root is normal in size. The ascending aorta is normal in size. Aortic arch is not well vis ualized. Due to poor image quality, the IVC could not be assessed. 2D Dimensions IVSD d PLAX 0.96 cm M: 0.6-1.2 LV Vol A2C d MOD 198.4 mL LVPW d PLAX 1.01 cm M: 0.6 - 1.2 LV Vol A4C d MOD 179.8 mL LVID d PLAX 5.77 cm M: 4.2 - 5.8 LA vol/ BSA A2C s A-L 37.2 mL/m2 LVDs 4.95 cm M: 2.5 - 4.0 LA Area A2C s MOD 21.04 cm2 Ao Root d 2.91 cm M: 3.1 - 3.7 LV EF A4C MOD 29.2 % Ao Asc Diam d 3.48 cm M: 2.6 - 3.4 LV EF A2C MOD 30.9 % LV EF Teichholz 29.6 % LV EF Biplane MOD 30.3 % LVEF (Sheth's) 30.28 % M: 52 - 72 SV 58.06 mL LV Volume 144.68 mL M: 62 - 150 SV Index 29.57 mL/m2 LV Volume Index 73.81 mL/m2 M: 34 - 74 LV Vol Biplane MOD 191.7 mL FS 14.05 % M-Mode TAPSE 1.42 cm (M/F) >1.7 LV Diastology MV E' medial 0.040 (>0.07 m/s) E/A Ratio 0.8 LV E/e MED 15.40 (<14) MV E Vmax 0.62 (0.4-1.3 m/s) MV E' lateral 0.080 (>0.1 m/s) MV A Vmax 0.80 (0.4-1.3 m/s) LV E/e LAT 7.70 (<14) MV E/A Ratio 0.73 MV E/E' medial 15.45 MV E/E' lateral 7.72 Aortic Valve LVOT Area 4.02 cm2 AoV Area Vmax 3.09 cm2 LVOT Vmax 1.03 m/s AoV Area/ BSA (Vmax) 1.57 cm2/m2 LVOT Mean Fredrick. 0.68 m/s FRANKIE Mean Fredrick. 2.78 cm2 LVOT Peak Grad 4.3 mmHg FRANKIE Mean Fredrick. Index 1.42 cm2/m2 LVOT Mean Grad 2.2 mmHg LVOT VTI 0.215 m LVOT Diam s 2.25 cm AoV Vmax 1.34 m/s Velocity Ratio 0.76 AoV Mean Fredrick. 0.98 m/s AoV Peak Grad 7.2 mmHg LVOT SV 86.63 mL AoV Mean Grad 4.2 mmHg AoV VTI 0.278 m AoV Area VTI 3.11 cm2 AoV Area/ BSA (VTI) 1.58 cm/m2 Mitral Valve MV DT 203 (160-240 msec) MV PHT 59 msec MV Area PHT 3.74 cm2 MV VTI 0.282 m MV Area VTI 3.07 (4.0-6.0 cm2) Pulmonary Valve PV Vmax 0.90 (0.5-1.5 m/s) RVOT Peak Gr. 1.03 mmHg PV Peak Grad 3.3 mmHg RVOT Mean Gr. 0.50 mmHg PV Mean Grad 1.8 mmHg RVOT VTI 0.098 m PV VTI 0.169 m RVOT Vmax 0.51 m/s Tricuspid Valve TR Peak Grad 25.8 mmHg TR Vmax 2.54 m/s
[2021-04-23 06:56] LABS: Abs Immature Grans 0.05 10^3/uL (0.0-0.06); Absolute Basophil Count 0.04 10^3/uL (0.0-0.2); Absolute Eosinophil Count 0.08 10^3/uL (0.0-0.7); Absolute Neutrophil Count 9.43 10^3/uL (1.2-6.7); Basophils % 0.3; Eosinophils % 0.7; HCT 35.3 % (40.0-50.0); HGB 11.4 g/dL (13.5-17.5); Immature Grans % 0.4; Lymphocytes % 10.9; MCH 30.1 pg (27.0-33.0); MCHC 32.3 % (32.0-36.0); MCV 93.1 fL (80-95); MPV 11.2 fL (8.0-11.0); Monocytes % 9.5; Neutrophils % 78.2; Nucleated RBC 0 %; Platelet Count 203 10^3/uL (130-400); RBC 3.79 10^6/uL (4.36-5.78); RDW 13.9 % (11.8-14.1); RDW-SD 47.3 fL; WBC 12.06 10^3/uL (4.4-10.8)
[2021-04-23 06:57] LABS: Absolute Lymphocyte Count 1.31 10^3/uL (1.2-3.4); Absolute Monocyte Count 1.15 10^3/uL (0.1-0.8)
[2021-04-23 07:06] LABS: Anion Gap 6.6 mmol/L (3-11); BUN 26 mg/dL (7-18); CO2 32.4 mmol/L (21.0-32.0); CREATININE 1.3 mg/dL (0.70-1.30); Calcium 8.6 mg/dL (8.5-10.1); Chloride 99 mmol/L (98-107); Estimated GFR 53.12 (mL/min/1.73m2); Glucose 112 mg/dL (74-106); Magnesium 2.1 mg/dL (1.8-2.4); Sodium 138 mmol/L (136-145)
--- NOTE | 2021-04-23 08:05 | PCNE_ITS ---
Date of service: 04/23/21 Time of Service: 08:05 History of Present Illness History of Present Illness Chief Complaint: CHF/ copd Narrative: From H and P: History of Present Illness Chief Complaint: Shortness of breath Narrative: This is an 80 yo male with a PMH of CAD/CABG, ischemic cardiomyopathy, COPD, DM2, tobacco abuse syndrome, PAD, drug-induced parkinsonism, anemia, schizophrenia. He reports that he attended his daughters wedding the day prior to presention to the ED and was more active than usual. He doesn't beieve he ate more salty foods than usual. He has noted increasing SOA / GALLAGHER and he called EMS. EMS noted a RA sataration in the 70's and he was tachypneic. A Duoneb treatment was given and BiPAP initiated. In the ED he was reportedly able to speak in 4-5 word sentences. He was noted to have apical wheezing and crackles in the bases. Bedside US showed a likely reduced EF and the presence of diffuse B lines. IV solumedrol administered. Lasix 80mg IV given. He denied fever/chills, sputum. + dry cough. No CP/palpitations. He was stabilized on 2L supplemental O2 per NC. CXR negative for acute processes. WBC count mildly elevated at 12.28. Hgb 12.2. ABG: pH 7.30, VBG pCO2 65, VBG pO2 27. Lyites normal. Creatinine 1.2. Troponin < 50, then 106. Third troponin pending. [id number]. According to his recent office visit with his PCP, he is firm in not wanting more aggressive care regarding his CAD: no cardiac cath. He has a h/o of an EF of 20-30% and a positive MPI. He uses a SL nitro appx once a week and this helps with his GALLAGHER. Interim Hx: Ryan states he is starting to feel better. He does have home health and aides at home. He lives in [place]. He has 2 daughters that live out of state for the visit when they can. He has another daughter that lives 3 miles away. His ex-, they have been for 6 years, lives nearby and also was involved in his care. 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 He was involved in codes and did have a woman almost dying in his arms. He knows that he can help at times having CPR and other times it prolongs problems. He does not feel like it is his call to make a decision as to whether or not it is going to help. He has not discussed it with his family. He is inclined to think that it would be best to try but if it does not work stop He does think that he is going to live for several more years. He feels his life is pretty stable at this time. Overall he feels that he is doing well. He does plan to return to the hospital if his breathing is impaired. Assessment and Plan Assessment and plan (1) Acute congestive heart failure: Status: Acute (2) Acute respiratory failure: Status: Acute Qualifiers: Respiratory failure complication: unspecified whether with hypoxia or hypercapnia Qualified Code(s): J96.00 - Acute respiratory failure, unspecified whether with hypoxia or hypercapnia (3) Hypoxia: Status: Acute (4) Palliative care patient: Status: Acute Assessment and plan: Ryan was quite clear. At this point he still would want CPR. He was able to tell me what CPR was and the risks and benefits of it. He does feel that perhaps working with palliative care may give him ideas and directions for maintaining a good quality of life. We will plan to meet with him outpatient as I do feel like ongoing contact would be helpful for future decision making. I also recommended that he bring his daughter with him We did complete a DPOA form naming his daughters and ex- is people that could be contacted to help make decisions for him if he could no longer make them for himself Review of Systems Narrative: Short of breath but that is been going on for a long time. He does have chest pain sometimes. No difficulty with nausea vomiting diarrhea constipation PFSH All Active Problems (Updated 04/24/21 @ 10:31 by Tanya Pleitez MD, DC) Palliative care patient (Acute) Acute congestive heart failure (Acute) Acute respiratory failure (Acute) Hypoxia (Acute) Ischemic cardiomyopathy (Acute) Diabetic foot ulcer (Acute) Psoriasis (Chronic) History of appendectomy (Acute) History of coronary artery bypass surgery (Acute) Status post cholecystectomy (Acute) Status post hernia repair (Acute) Lower urinary tract symptoms (LUTS) (Acute) Hematuria (Acute) Total urinary incontinence (Acute 12/02/07) Smoker (Acute) Schizophrenia (Acute 10/19/13) Periods of severe hypomania and agitation Right leg claudication (Acute 09/06/14) Peripheral vascular disease (Acute 12/02/07) bilateral leg claudication. 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 Atherosclerosis of [place] coronary artery (Acute 12/02/07) s/p CABG 2004 with diminished ejection fraction. NSTEMI 06/07. EF 40% Anemia (Acute 03/11/12) Threatening behavior (Active 10/23/12) Surgical History Appendectomy Cholecystectomy Colonoscopy - [facility] [place] 05/14/12 Coronary Artery Bypass [place] (CABG) 2004 HERNIA REPAIR RIGHT Family History Mother No problems noted. Father Heart disease Brother No problems noted. Social History Smoking/Tobacco Use Status: Current every day Tobacco Type: cigarettes Tobacco: How many years used: 55 Quit status: not considering quitting Counseling given: patient declined Smoking risk assessment performed?: Yes Alcohol Intake: never Drug use: Never Caregiver/Support person: No Household members: none Pets and animals: No Sexually active: No Do you think of yourself as: straight/heterosexual Current gender identity: male What is your relationship status?: How often do you talk on the phone with friends or family?: three or more times per week How often do you attend congregation or shinto services?: decline to answer Do you belong to any clubs or organized social groups?: yes Panel score (0-1 are the most socially isolated patients): 2 What type of physical activity do you participate in: none Justa/Jainism: Buddhism Seatbelt use: always Drive intox or ride w/intox stock car driver: No Do you feel safe at home: Yes Do you feel safe in your relationship?: Yes Exam Narrative Exam Narrative: Sitting on the side of the bed. Can talk in complete sentences. Does feel strong enough to ambulate with his walker. Eyes General: appearance normal, both eyes and all related structures Neck Carotids: normal carotid upstroke Resp Effort & Inspection: able to speak in complete sentences Auscultation: diminished lung sounds Cardio Rate: regular rate Heart Sounds: murmur Results Last Vital Signs Temp 96.7 F L 04/23/21 07:33 Pulse 88 04/23/21 07:33 Resp 15 04/23/21 07:33 BP 99/61 L 04/23/21 07:33 Pulse Ox 94 04/23/21 07:33 Echo 04/23/21 Conclusion Normal left ventricular size and wall thickness. Estimated ejection fraction is 30 to 35%. The inferior posterior and posterolateral acuna are hypocontractile Normal right ventricular size and systolic function The left atrium is mildly dilated. Right atrial size is normal The aortic valve is trileaflet and sclerotic without stenosis or regurgitation Mild mitral annular calcification. Trace to mild mitral regurgitation Normal tricuspid valve with trace regurgitation. Estimated right ventricular systolic pressure is normal at 26 mmHg Labs Result diagrams: 04/23/21 06:41 04/23/21 06:41 Labs: Laboratory Results - last 24 hr 04/22/21 04/22/21 04/22/21 09:07 09:07 11:51 WBC 5.31 D RBC 3.99 L Hgb 12.2 L Hct 37.6 L MCV 94.2 MCH 30.6 MCHC 32.4 RDW 13.7 Plt Count 206 MPV 11.1 H Immature Gran % 0.4 Neutrophils % 91.1 Lymphocytes % 6.8 Monocytes % 1.3 Eosinophils % 0.2 Basophils % 0.2 Nucleated RBC % 0 Absolute Neutrophils 4.84 Absolute Lymphocytes 0.36 L Absolute Monocytes 0.07 L Absolute Eosinophils 0.01 Absolute Basophils 0.01 Sodium 134 L Potassium 3.9 Chloride 98 Carbon Dioxide 30.8 Anion Gap 5.2 BUN 21 H Creatinine 1.2 Estimated GFR/1.73 m2 58.26 Glucose 184 H Calcium 8.7 Magnesium Troponin I 146 H* 136 H* 04/23/21 04/23/21 06:41 06:41 WBC 12.06 H D RBC 3.79 L Hgb 11.4 L Hct 35.3 L MCV 93.1 MCH 30.1 MCHC 32.3 RDW 13.9 Plt Count 203 MPV 11.2 H Immature Gran % 0.4 Neutrophils % 78.2 Lymphocytes % 10.9 Monocytes % 9.5 Eosinophils % 0.7 Basophils % 0.3 Nucleated RBC % 0 Absolute Neutrophils 9.43 H Absolute Lymphocytes 1.31 Absolute Monocytes 1.15 H Absolute Eosinophils 0.08 Absolute Basophils 0.04 Sodium 138 Potassium 4.0 Chloride 99 Carbon Dioxide 32.4 H Anion Gap 6.6 BUN 26 H Creatinine 1.3 Estimated GFR/1.73 m2 53.12 Glucose 112 H Calcium 8.6 Magnesium 2.1 Troponin I
[2021-04-23] MEDS: metFORMIN 500 MG TAB PO ×2 (08:28→18:10)
[2021-04-23] MEDS: Pantoprazole 40 MG TABCR PO (08:28)
[2021-04-23] MEDS: Aspirin E.C. 81 MG TABEC PO (08:28)
[2021-04-23] MEDS: Docusate Sodium 100 MG CAP 200 MG PO ×2 (08:28→21:04)
[2021-04-23] MEDS: Sacubitril/Valsartan 24 mg/26 mg TAB 2 EACH PO ×2 (08:28→21:03)
[2021-04-23] MEDS: Tamsulosin 0.4 MG CAPCR PO (08:28)
[2021-04-23] MEDS: predniSONE 20 MG TAB 40 MG PO (08:29)
[2021-04-23] MEDS: Multivitamin TAB 1 TAB PO (08:29)
[2021-04-23] MEDS: Metoprolol CR 50 MG TABCR PO (08:29)
--- NOTE | 2021-04-23 08:32 | PDOC.CMPRO ---
- If Service Date Differs Date of service: 04/23/21 Time of Service: 08:32 Care Management Progress Note S/O:Santiago was sitting up in bed when CM met with him. He was pleasant and interacted well with CM. Santiago stated that he is feeling much better than when he came to the hospital. He is currently a [employer] client and has home health nursing support every 3 week and assistance with hoiusekeeping and laundry every 2 weeks. His daughter Ashleigh lives locally and supports him in addition to his community team. A: Ryan is an 80 year old man admitted on 04/22/21 with CHF P: Ryan will likely be discharged home with a resumption of services when medically cleared by provider. He will follow up with his PCP and discharge plan of care as directed. He will be transported home by his daughter, Ashleigh, via private vehicle when ready. CM will continue to support Ryan and any discharge planning needs.
[2021-04-23] MEDS: Albuterol HFA 8 GM 60 PUFF INH IH ×4 (08:48→21:05)
[2021-04-23] MEDS: Furosemide 40 MG/4 ML VIAL IVP (08:50)
[2021-04-23] MEDS: Normal Saline Flush 10 ML SYR IVP (08:51)
[2021-04-23 10:00] LABS: NT-proBNP 3394 pg/mL (<300)
[2021-04-23 10:02] LABS: Troponin I 85 ng/L (<or=60)
--- NOTE | 2021-04-23 10:04 | NUR.NOTE ---
Pt's daughter called to check in, asked about discharging her dad if it was going to be today because she lives in [facility]. He does have a daughter who lives in [place] as well. Nursing Note:
[2021-04-23] MEDS: Enoxaparin 40 MG/0.4 ML SYR SC (10:17)
--- NOTE | 2021-04-23 10:33 | PGE_ITS ---
Date of Service Date of service: 04/23/21 Time of Service: 10:33 Assessment and Plan Assessment and plan (1) Acute respiratory failure: Status: Acute Assessment and plan: Secondary to acute volume overload /CHF in the background of ischemic cardiomyopathy. Diuresed well after initial 80 mg IV lasix and now maintaining adequate O2 saturations on 2L O2 per NC Qualifiers: Respiratory failure complication: unspecified whether with hypoxia or hypercapnia Qualified Code(s): J96.00 - Acute respiratory failure, unspecified whether with hypoxia or hypercapnia (2) Ischemic cardiomyopathy: Status: Acute Assessment and plan: Echocardiogram from today Conclusion Normal left ventricular size and wall thickness. Estimated ejection fraction is 30 to 35%. The inferior posterior and posterolateral acuna are hypocontractile Normal right ventricular size and systolic function The left atrium is mildly dilated. Right atrial size is normal The aortic valve is trileaflet and sclerotic without stenosis or regurgitation Mild mitral annular calcification. Trace to mild mitral regurgitation Normal tricuspid valve with trace regurgitation. Estimated right ventricular systolic pressure is normal at 26 mmHg See CHF (3) Smoker: Status: Acute Assessment and plan: Has cut back to several cigarettes daily. Encourage ongoing efforts. (4) Schizophrenia: Status: Acute Assessment and plan: Cont Clozaril. No behavioral issues since presentation. (5) Peripheral vascular disease: Status: Acute Assessment and plan: Hold pletal given acute CHF; contraindicated in heart failure. (6) Diabetes mellitus: Status: Acute Assessment and plan: He is on metformin routinely; continue. Random glucose of 196 on presentation. Suspect he will have glucose elevations secondary to IV steroid. SS insulin correction dosing. Carb controlled diet. A1C 6.2 (7) Chronic obstructive lung disease: Status: Acute Assessment and plan: Questionable component of exacerbation. REceiving a Duoneb in ED. Discuss compatability of ipratropium and clozaril. PRN albuterol (8) Coronary atherosclerosis of [place] coronary vessel: Status: Acute Assessment and plan: H/o CABG. Requests no cardiac cath or aggressive therapy. Cont ASA daily and metoprolol. (9) Anemia: Status: Acute Assessment and plan: Monitor Hgb. (10) Acute congestive heart failure: Status: Acute Assessment and plan: In background of ischemic cardiomyopathy. Cont [place], BB. Demand ischemia as reflected in mild troponin elevation; monitor. Lasix 40mg IV daily. Monitor daily wt. Low Na diet. Echocardiogram results above. discussed with DR Zaragoza Subjective Subjective Patient reports: no new complaints, tolerating liquids well, tolerating a regular diet and afebrile; denies shortness of breath (reports improvement in breathing) Exam Const General: no acute distress Orientation: alert HENMT Head: normal to inspection Ears: external ears normal General nose exam: external nose normal Mouth: moist mucous membranes Eyes General: appearance normal, both eyes and all related structures Neck Neck: normal visual inspection Chest Chest: normal inspection of the chest Resp Effort & Inspection: tachypneic, no tripod positioning and no use of accessory muscles Auscultation: clear to auscultation bilaterally and diminished lung sounds (bases bilateral) Cardio Rate: regular rate GI Palpation: soft and nontender Skin General skin exam: no rashes or lesions noted Neuro General: patient alert and patient oriented x3 Extrem General: normal to inspection and no pedal edema Psych Mental Status: mental status grossly normal Objective Last Vital Signs Temp 35.9 C L 04/23/21 07:33 Pulse 85 04/23/21 08:45 Resp 15 04/23/21 07:33 BP 111/68 04/23/21 08:45 Pulse Ox 93 04/23/21 08:45 Laboratory Results - last 24 hr 04/22/21 04/23/21 04/23/21 11:51 06:41 06:41 WBC 12.06 H D RBC 3.79 L Hgb 11.4 L Hct 35.3 L MCV 93.1 MCH 30.1 MCHC 32.3 RDW 13.9 Plt Count 203 MPV 11.2 H Immature Gran % 0.4 Neutrophils % 78.2 Lymphocytes % 10.9 Monocytes % 9.5 Eosinophils % 0.7 Basophils % 0.3 Nucleated RBC % 0 Absolute Neutrophils 9.43 H Absolute Lymphocytes 1.31 Absolute Monocytes 1.15 H Absolute Eosinophils 0.08 Absolute Basophils 0.04 Sodium 138 Potassium 4.0 Chloride 99 Carbon Dioxide 32.4 H Anion Gap 6.6 BUN 26 H Creatinine 1.3 Estimated GFR/1.73 m2 53.12 Glucose 112 H Calcium 8.6 Magnesium 2.1 Troponin I 136 H* NT-Pro-B Natriuret Pep 04/23/21 06:41 WBC RBC Hgb Hct MCV MCH MCHC RDW Plt Count MPV Immature Gran % Neutrophils % Lymphocytes % Monocytes % Eosinophils % Basophils % Nucleated RBC % Absolute Neutrophils Absolute Lymphocytes Absolute Monocytes Absolute Eosinophils Absolute Basophils Sodium Potassium Chloride Carbon Dioxide Anion Gap BUN Creatinine Estimated GFR/1.73 m2 Glucose Calcium Magnesium Troponin I 85 H* NT-Pro-B Natriuret Pep 3394 H
--- NOTE | 2021-04-23 13:30 | W.NUTRFU ---
Date of service: 04/23/21 Time of Service: 13:31 Nutrition Note NOTE: Mr. Beyer presents with CHF. He states he may have had too much sodium in the past week. Generally good PO intake. His weight has been stable for several years. BMI is 27.8 kg/m2. Will offer low sodium nutrition therapy education. Will continue to monitor nutritional status as well. Time Spent in Nutritional Counseling and Treatment: 0
[2021-04-23] MEDS: Insulin Aspart 300 UNITS/3 ML PEN SC (17:03)
[2021-04-23] MEDS: Atorvastatin 40 MG TAB 80 MG PO (21:04)
[2021-04-23] MEDS: Divalproex 500 MG TABEC 1000 MG PO (21:04)
[2021-04-24 03:13] VITALS: BP 115/69; PULSE 82; RESP 17; TEMP 36.4; O2SAT 93
[2021-04-24 07:21] VITALS: BP 118/69; PULSE 75; RESP 16; TEMP 36.7; O2SAT 92
[2021-04-24] MEDS: Albuterol HFA 8 GM 60 PUFF INH IH (07:44)
[2021-04-24] MEDS: Docusate Sodium 100 MG CAP 200 MG PO (07:45)
[2021-04-24] MEDS: predniSONE 20 MG TAB 40 MG PO (07:45)
[2021-04-24] MEDS: Multivitamin TAB 1 TAB PO (07:45)
[2021-04-24] MEDS: Tamsulosin 0.4 MG CAPCR PO (07:45)
[2021-04-24] MEDS: Sacubitril/Valsartan 24 mg/26 mg TAB 2 EACH PO (07:45)
[2021-04-24] MEDS: Metoprolol CR 50 MG TABCR PO (07:45)
[2021-04-24] MEDS: Aspirin E.C. 81 MG TABEC PO (07:45)
[2021-04-24] MEDS: Pantoprazole 40 MG TABCR PO (07:46)
[2021-04-24] MEDS: metFORMIN 500 MG TAB PO (07:46)
[2021-04-24] MEDS: Furosemide 40 MG/4 ML VIAL IVP (07:52)
[2021-04-24 07:56] VITALS: PULSE 82
[2021-04-24] MEDS: Budesonide/Formoterol 80/4.5 6.9 GM 60 PUFF INH IH (10:02)
[2021-04-24] MEDS: Enoxaparin 40 MG/0.4 ML SYR SC (10:08)
[2021-04-24] MEDS: Betamethasone Dip. 0.05% CR 15 GM TUBE TP (10:11)
--- NOTE | 2021-04-24 10:51 | NUR.NOTE ---
I spoke to the patient's daughter, Kristen on the phone. She asked about her father's condition, I informed he is showing signs of improvement. She wanted to know if he was getting discharged today, I told her no. She needs to coordinate with her sister who lives in the area to potato picker their dad. Nursing Note:
[2021-04-24 11:12] LABS: Abs Immature Grans 0.07 10^3/uL (0.0-0.06); Absolute Basophil Count 0.05 10^3/uL (0.0-0.2); Absolute Eosinophil Count 0.04 10^3/uL (0.0-0.7); Absolute Lymphocyte Count 0.61 10^3/uL (1.2-3.4); Absolute Monocyte Count 0.58 10^3/uL (0.1-0.8); Absolute Neutrophil Count 8.37 10^3/uL (1.2-6.7); Basophils % 0.5; Eosinophils % 0.4; HCT 38.6 % (40.0-50.0); HGB 12.2 g/dL (13.5-17.5); Immature Grans % 0.7; Lymphocytes % 6.3; MCHC 31.6 % (32.0-36.0); MCV 94.8 fL (80-95); MPV 11.2 fL (8.0-11.0); Neutrophils % 86.1; Nucleated RBC 0 %; Platelet Count 201 10^3/uL (130-400); RBC 4.07 10^6/uL (4.36-5.78); RDW 13.9 % (11.8-14.1); WBC 9.72 10^3/uL (4.4-10.8)
[2021-04-24 11:18] LABS: Anion Gap 7.8 mmol/L (3-11); BUN 29 mg/dL (7-18); CO2 30.2 mmol/L (21.0-32.0); CREATININE 1.3 mg/dL (0.70-1.30); Calcium 8.7 mg/dL (8.5-10.1); Chloride 101 mmol/L (98-107); Estimated GFR 53.12 (mL/min/1.73m2); Glucose 132 mg/dL (74-106); Sodium 139 mmol/L (136-145)
--- NOTE | 2021-04-24 11:30 | IN_ITS ---
Date of service: 04/24/21 Time of Service: 11:30 PT Notes Visit Reasons: Congestive heart failure Physical Therapy Inpatient Initial Evaluation Date: 04/24/2021 Referring Doctor: Jenny Ledezma NP PT Orders: PT CONSULT: Safety consult for D/C Precautions: Fall. Standard. Activity as tolerated. Patient Profile/Admitting Diagnosis: Ryan is an 80-year-old male who presented to the ED on 04/22/2021 due to increasing shortness of breath accompanied with a mild swelling in both feet. Patient is diagnosed with acute respiratory failure, ischemic cardiomyopathy, schizophrenia, peripheral vascular disease, diabetes mellitus, chronic obstructive lung disease, coronary atherosclerosis, anemia, and acute congestive heart failure. PMHX: All Active Problems (Updated 04/22/21 @ 07:56 by Charly Muñoz MD) Acute congestive heart failure (Acute) Acute respiratory failure (Acute) Hypoxia (Acute) Ischemic cardiomyopathy (Acute) Diabetic foot ulcer (Acute) Psoriasis (Chronic) History of appendectomy (Acute) History of coronary artery bypass surgery (Acute) Status post cholecystectomy (Acute) Status post hernia repair (Acute) Lower urinary tract symptoms (LUTS) (Acute) Hematuria (Acute) Total urinary incontinence (Acute 12/02/07) Smoker (Acute) Schizophrenia (Acute 10/19/13) Periods of severe hypomania and agitation Right leg claudication (Acute 09/06/14) Peripheral vascular disease (Acute 12/02/07) bilateral leg claudication. 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 Atherosclerosis of [place] coronary artery (Acute 12/02/07) s/p CABG 2004 with diminished ejection fraction. NSTEMI 06/07. EF 40% Anemia (Acute 03/11/12) Threatening behavior (Active 10/23/12) Surgical History Appendectomy Cholecystectomy Colonoscopy - [facility] 05/14/12 Coronary Artery Bypass [place] (CABG) 2005 HERNIA REPAIR RIGHT Social History/Home Situation: Lives alone in a private home with a ramp to enter. Independent with 4WW for all indoor ambulation. Receives HH assiatnace of 3 hours every two weeks for laundry and house chores. Receives meals on wheels. 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 Equipment Owned/DME: [employer] Subjective: Agreeable to PT consult. States that he is back to how he has been prior to coming to this hospital. States that his legs have chronically hurt him. Agreeable to home health PT evaluation to reassess home situation and safety. Objective: General Observation: Seated on chair. IV access in R UE. Mental Status: Alert and oriented as to person, place, time, and purpose. Able to pay attention, focus, and respond appropriately. Pain: Denies Vital Signs: 94% on RA at rest, 96% with ambulation ROM: Right Upper Extremity: Shoulder Flexion WFL. Shoulder abduction WFL. Elbow flexion WFL. Wrist flexion WFL. Functional opening and closing of hand WFL. Left Upper Extremity: Shoulder Flexion WFL. Shoulder abduction WFL. Elbow flexion WFL. Wrist flexion WFL. Functional opening and closing of hand WFL. Right Lower Extremity: Hip flexion WFL. Hip abduction WFL. Knee flexion WFL. Ankle dorsiflexion WFL. Ankle plantarflexion WFL. Left Lower Extremity: Hip flexion WFL. Hip abduction WFL. Knee flexion WFL. Ankle dorsiflexion WFL. Ankle plantarflexion WFL. Strength: Right Upper Extremity: Shoulder flexors 4/5. Shoulder abductors 4/5. Elbow flexors 5/5. Elbow extensors 4/5. Robotic Maintenance Technician strong. Left Upper Extremity: Shoulder flexors 4/5. Shoulder abductors 4/5. Elbow flexors 5/5. Elbow extensors 4/5. Robotic Maintenance Technician strong. Right Lower Extremity: Hip flexors 4-/5. Hip abductors 4/5. Knee flexors 5/5. Knee extensors 4/5. Ankle dorsiflexors 4/5. Ankle plantarflexors 5/5. Left Lower Extremity: Hip flexors 4-/5. Hip abductors 4/5. Knee flexors 5/5. Knee extensors 4/5. Ankle dorsiflexors 4/5. Ankle plantarflexors 5/5. Bed Mobility/Transfers: Rolling independent Supine to sit independent Sit to supine independent Sit to stand independent Stand to sit independent Gait: Instructed patient with level surface ambulation of 100 feet requiring supervision assist. Cristel decreased. Patient indicates that this distance is only farther than what he is used to walking at home. Balance: Static Sitting: Normal Dynamic Sitting: Normal Static Standing: Good Dynamic Standing: Fair Special Tests: Mobility Limitations Standardized Measure [facility] AM-PAC 6 clicks Basic Mobility Inpatient Short Form: Raw Score: 24 CMS Score: 11% deficit Informed Consent/Education: Patient was instructed in purpose of PT consult and plan of care. Agreeable to proceed with established PT POC to achieve personal goals. Assessment: Ryan demonstrates baseline mobility level using 4-wheeled walker with oxygen saturation staying at least 94% on room air even with ambulation activity. [place] is [place] a 96255 moderate complexity based on the following: History: 80-year-old male with past medical history as indicated above Examination: At premorbid functional mobility level using 4 wheeled walker Presentation: Stable Decision Makin moderate complexity Goals: N/A PT evaluation only. Plan of Care/Treatment Plan: N/A PT evaluation only. DISCHARGE RECOMMENDATIONS: [] Home with no services [] [X] Home with services. Home when medically cleared by hospitalist. May benefit from a one-time evaluation from home health PT and OT to ensure safety with all ADL performance at home. [] Home with outpatient PT [] [] SNF for continued rehabilitation [] [] [facility] [employer] [facility] [] [] SNF versus LTC based on ability to participate and progress [] TREATMENT CODE/TIME: 31586 x 25 minutes beginning at 11:30 AM. Thank you for the opportunity to participate in the care of this patient. Swapna Devine PT, DPT, CLT [facility] [place], [place]
[2021-04-24 11:31] LABS: NT-proBNP 3057 pg/mL (<300)
--- NOTE | 2021-04-24 12:12 | W.PM.DS.N ---
Date of service: 04/24/21 Time of Service: 12:12 DS: Diagnosis Discharge Diagnosis (1) Acute congestive heart failure: Status: Acute (2) Acute respiratory failure: Status: Acute (3) Hypoxia: Status: Acute (4) Palliative care patient: Status: Acute Discharge Plan Disposition Patient Disposition: HOME W/HOME HEALTH SERVICE Condition: Stable Discharge Details Reason For Visit: CHF Admit Date/Time: 04/22/21 03:18 Admit Provider: Charly Muñoz Attending Provider: Charly Muñoz Primary Care Provider: João Metz Hospital Course Hospital Course: This is an 80 yo male with a history of CAD/CABG, ischemic cardiomyopathy, COPD, DM2, tobacco abuse syndrome, PAD, drug-induced parkinsonism, anemia, schizophrenia. He reports that he attended his daughters wedding the day prior to presentation to the ED and was more active than usual. He doesn't beieve he ate more salty foods than usual. He has noted increasing SOA / GALLAGHER and he called EMS. EMS noted a room air sat in the 70's and he was tachypneic. A Duoneb treatment was given and BiPAP initiated. In the ED he was reportedly able to speak in 4-5 word sentences. He was noted to have apical wheezing and crackles in the bases. Bedside US showed a likely reduced EF and the presence of diffuse B lines. IV solumedrol administered. Lasix 80mg IV given. He was admitted to med/surg under hospitalist services for further management. He was diuresed with good effect. Weaned off oxygen and back to his baseline. He is being discharged with resumption of home health services. He will complete a steroid burst, he was started on symbicort. He is stable and ready for discharge to home with home health services. discharge discussed Dr Muñoz According to his recent office visit with his PCP, he is firm in not wanting more aggressive care regarding his CAD: no cardiac cath. He has a h/o of an EF of 20-30% and a positive MPI. He uses a SL nitro appx once a week and this helps with his GALLAGHER. Home Meds and New Rx's Prescriptions: New prednisone 20 mg Tablet 40 mg PO DAILY Qty: 6 RF: 0 budesonide-formoterol [Symbicort] 80-4.5 mcg/actuation Hfa Aerosol Inhaler 2 puff inhalation BID Qty: 1 RF: 0 Continued tamsulosin [Flomax] 0.4 mg capsule 0.4 mg PO DAILY Qty: 90 RF: 3 clozapine 25 mg tablet 50 mg PO HS RF: 0 betamethasone dipropionate 0.05 % ointment 1 applic topical BID RF: 0 Entresto 49-51 mg tablet 1 tab PO BID Qty: 180 RF: 5 (DME) blood-glucose meter 1 EACH misc 1 ea Miscellaneous ONCE Qty: 1 RF: 0 (DME) OneTouch Ultra Test 1 EACH strip 1 ea Miscellaneous DAILY Qty: 90 RF: 0 (DME) blood-glucose meter [Teradiciuch UltraMini] 1 EACH kit 1 ea Miscellaneous DAILY Qty: 1 RF: 0 clozapine 100 mg tablet 100 mg PO QAM AND QHS RF: 0 (DME) Blood Glucose Test Strip 1 ea Miscellaneous DAILY Qty: 100 RF: 4 (DME) lancets 28 gauge misc 1 ea Miscellaneous DAILY Qty: 100 RF: 3 (DME) lancets [[employer] UltraSoft Lancets] Misc 1 ea Miscellaneous DAILY Qty: 90 RF: 3 aspirin [Ecotrin Low Strength] 81 mg tablet,delayed release (DR/EC) 81 mg PO DAILY Qty: 90 RF: 3 cilostazol 100 mg tablet 100 mg PO BID Qty: 180 RF: 3 metformin 500 mg tablet 500 mg PO BID Qty: 180 RF: 3 metoprolol succinate 50 mg tablet extended release 24 hr 50 mg PO DAILY Qty: 90 RF: 4 ferrous sulfate 325 mg (65 mg iron) tablet 325 mg PO DAILY Qty: 90 RF: 4 multivitamin Tablet 1 tab PO DAILY Qty: 90 RF: 3 docusate sodium [Colace] 100 mg capsule 200 mg PO BID Qty: 180 RF: 4 acetaminophen [Acetaminophen Extra Strength] 500 mg tablet 1,000 mg PO Q6H PRN Qty: 360 RF: 4 nitroglycerin 0.4 mg tablet, sublingual 0.4 mg sublingual Q5M PRN (Reason: chest pain) Qty: 20 RF: 1 pantoprazole 40 mg tablet,delayed release (DR/EC) 40 mg PO DAILY Qty: 90 RF: 4 Ensure Liquid See Rx Instructions PO .COMPLEX Qty: 5688 RF: 12 atorvastatin [Lipitor] 80 mg tablet 80 mg PO HS Qty: 90 RF: 3 divalproex 250 mg tablet,delayed release (DR/EC) 1,000 mg PO HS RF: 0 Changed furosemide [Lasix] 20 mg tablet 40 mg PO DAILY Qty: 90 RF: 4 albuterol sulfate 90 mcg/actuation HFA aerosol inhaler 2 puff IH QID PRN PRNQty: 18 RF: 6 Discharge Instructions Instructions: Heart Failure (DC), COPD (Chronic Obstructive Pulmonary Disease) (DC) Stand Alone Forms: Nursing Discharge Form Referrals: João Metz DO [Primary Care Provider] - 05/03/21 2:40 pm Activity:: Activity as Tolerated Equipment/Supplies:: No Equipment Needed Diet:: Low Sodium Discharge Orders Discharge Orders: Discharge Order (Routine); Ordered 04/24/21 Ordered By: Jenny Ledezma Discharge Data Discharge Date/Time-TO BE ENTERED AT DEPARTURE: 04/24/21 15:13 DS: Summary Time Spent with Patient providing and/or coordinating discharge services: Greater than 30 minutes Status at Discharge Functional status at discharge: uses cane/walker Overall status at discharge: patient is progressing back to baseline Mental Status: mental status grossly normal Speech and Movement: speech and movement normal Mood: congruent mood Affect: normal affect Exam Const General: no acute distress Orientation: alert HENMT Head: normal to inspection Ears: external ears normal General nose exam: external nose normal Mouth: moist mucous membranes Eyes General: appearance normal, both eyes and all related structures Neck Neck: normal visual inspection Chest Chest: normal inspection of the chest Resp Effort & Inspection: tachypneic, no tripod positioning and no use of accessory muscles Auscultation: clear to auscultation bilaterally and diminished lung sounds (bases bilateral) Cardio Rate: regular rate GI Palpation: soft and nontender Skin General skin exam: no rashes or lesions noted Neuro General: patient alert and patient oriented x3 Extrem General: normal to inspection and no pedal edema Psych Mental Status: mental status grossly normal Speech and Movement: speech and movement normal Mood: congruent mood Affect: normal affect DS: Data Vitals/I&O Vitals and I&O: Vital Signs Temperature 36.7 C 04/24/21 07:21 Temperature Source Tympanic 04/24/21 07:21 Pulse 82 04/24/21 07:56 Pulse Rhythm Regular 04/24/21 07:57 Pulse 91 H 04/22/21 06:50 Respiratory Rate 16 04/24/21 07:21 Respiratory Effort Non-Labored 04/24/21 07:57 Respiratory Depth Normal 04/24/21 07:57 Respiratory Pattern Normal 04/24/21 07:57 Blood Pressure 118/69 04/24/21 07:21 Blood Pressure Mean 61 04/22/21 07:45 Pulse Oximetry 92 04/24/21 07:21 Oxygen Delivery Method Room Air 04/24/21 07:21 Oxygen Flow Rate 0 04/24/21 07:21 Pain Level 0 04/23/21 23:58 Intake & Output 04/23/21 04/24/21 04/24/21 23:59 11:59 23:59 Intake Total 180 / 420 Output Total 100 / 1400 400 / 400 Balance 80 / -980 -400 / -400 Intake: Oral 180 / 420 Output: Urine 100 / 1400 400 / 400 Other: Urine Color Yellow Yellow Urine Appearance Cloudy Urine Odor Normal Voiding Methods Urinal Urinal Data Completed and Pending Labs on day of discharge: Labs from last 24 hours 04/24/21 04/24/21 04/24/21 11:00 11:00 11:00 WBC 9.72 RBC 4.07 L Hgb 12.2 L Hct 38.6 L MCV 94.8 MCH 30.0 MCHC 31.6 L RDW 13.9 Plt Count 201 MPV 11.2 H Immature Gran % 0.7 Neutrophils % 86.1 Lymphocytes % 6.3 Monocytes % 6.0 Eosinophils % 0.4 Basophils % 0.5 Nucleated RBC % 0 Absolute Neutrophils 8.37 H Absolute Lymphocytes 0.61 L Absolute Monocytes 0.58 Absolute Eosinophils 0.04 Absolute Basophils 0.05 Sodium 139 Potassium 4.0 Chloride 101 Carbon Dioxide 30.2 Anion Gap 7.8 BUN 29 H Creatinine 1.3 Estimated GFR/1.73 m2 53.12 Glucose 132 H Calcium 8.7 NT-Pro-B Natriuret Pep 3057 H Preliminary micro results at discharge 04/22/21 01:20 Blood Culture - Preliminary Blood NO GROWTH 48 HOURS 04/22/21 01:20 Blood Culture - Preliminary Blood NO GROWTH 48 HOURS PFSH All Active Problems (Updated 04/24/21 @ 10:31 by Tanya Pleitez MD, [place]) Palliative care patient (Acute) Acute congestive heart failure (Acute) Acute respiratory failure (Acute) Hypoxia (Acute) Ischemic cardiomyopathy (Acute) Diabetic foot ulcer (Acute) Psoriasis (Chronic) History of appendectomy (Acute) History of coronary artery bypass surgery (Acute) Status post cholecystectomy (Acute) Status post hernia repair (Acute) Lower urinary tract symptoms (LUTS) (Acute) Hematuria (Acute) Total urinary incontinence (Acute 12/02/07) Smoker (Acute) Schizophrenia (Acute 10/19/13) Periods of severe hypomania and agitation Right leg claudication (Acute 09/06/14) Peripheral vascular disease (Acute 12/02/07) bilateral leg claudication. 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 Atherosclerosis of [place] coronary artery (Acute 12/02/07) s/p CABG 2004 with diminished ejection fraction. NSTEMI 06/07. EF 40% Anemia (Acute 03/11/12) Threatening behavior (Active 10/23/12) Surgical History [place]endectomy [place] [facility] [place] Coronary Artery Bypass [place] (CABG) 2004 HERNIA REPAIR RIGHT Family History Mother No problems noted. Father Heart disease Brother No problems noted. Social History Smoking/Tobacco Use Status: Current every day Tobacco Type: cigarettes Tobacco: How many years used: 55 Quit status: not considering quitting Counseling given: patient declined Smoking risk assessment performed?: Yes Alcohol Intake: never Drug use: Never Caregiver/Support person: No Household members: none Pets and animals: No Sexually active: No Do you think of yourself as: straight/heterosexual Current gender identity: male What is your relationship status?: How often do you talk on the phone with friends or family?: three or more times per week How often do you attend jainism or jainism services?: decline to answer Do you belong to any clubs or organized social groups?: yes Panel score (0-1 are the most socially isolated patients): 2 What type of physical activity do you participate in: none Justa/Taoist: Gnosticism Seatbelt use: always Drive intox or ride w/intox charter bus driver: No Do you feel safe at home: Yes Do you feel safe in your relationship?: Yes
[2021-04-24] MEDS: Insulin Aspart 300 UNITS/3 ML PEN SC (12:20)
--- NOTE | 2021-04-24 12:46 | PDOC.CMDIS ---
- If Service Date Differs Date of service: 04/24/21 Time of Service: 12:46 LACE Index Scoring Tool - Questions: Length of Stay (in days): 2 Acuity (Admit via E.D.?): Yes Comorbidities: PVD, Diabetes w/o Complication E.D. Visits: 1 - Answers: Total Score: 8 Risk of Readmission: Low Risk Care Management Discharge Reason for Hospitalization: CHF. Discharge Plan: Ryan will be discharged home with a resumption of RETAIL LOSS PREVENTION OFFICER and [facility] services when medically cleared by provider. He will follow up with his PCP and discharge plan of care as directed. He will be transported home by [facility] private vehicle, coordinated by this law writer. Patient/Family Education Needs: Review of discharge instructions, discuss Ask Me Three. Services Needed at Discharge: Home Delivered Meals, Home Health Care Services ([facility]), Transportation ([facility]) - MH Services (Omit if N/A) Current MH Services: [facility]AIL LOSS PREVENTION OFFICER
--- NOTE | 2021-04-24 13:41 | PDOC.HHF2F ---
Home Health Certification Home Health Certification: 1. Encounter Date and Reason I certify that Ryan Beyer was seen by Jenny Ledezma on 04/24/21 and that I had a [id number] encounter with this patient that meets the physician face to face encounter requirements. 2. Clinical Findings Supporting Skilled Need and Homebound Status I certify that home health services are medically necessary, include either intermittent intermediate and/or physical/speech therapy, and that this patient is homebound in that absences from the home require considerable and taxing effort and are infrequent or of short duration, or are attributable to the need to receive medical care. [X] (a) Attached documentation from encounter provides clinical findings supporting skilled need and homebound status (including what assistance patient requires to leave the home). The encounter with the patient was in whole, or in part, for the following medical condition, which is the primary reason for home health care: CHF Fpc: routine nursing evaluation and oversight of chronic diseases, medication management Physical and occupational Therapy: routine evaluation, home safety, treatment Homebound: patient is unable to safely leave the house unassisted d/t shortness of breath limiting distance. 3. Certification and Authentication I certify that I composed the above information based on my clinical judgement relating to this patient's medical condition and, if applicable, clinical findings communicated to me by the NPP or inpatient physician who performed the Home Health Referral. All further orders will be obtained through João Metz DO_(Community Based Physician - PCP)
== END 2021-04-24 15:13 | disposition home health service (06) | DRG 291 ==
LOC: ER 03:32 → MS 08:10
PROVIDERS: Nurse Practitioner Acute Care; Nurse Practitioner Family; Admitting Provider Family Medicine; Emergency Provider Emergency Medicine; PCP Emergency Medicine; Visit Provider Family Medicine
DX: I50.21 Acute systolic (congestive) heart failure (principal); J96.01 Acute respiratory failure with hypoxia; G21.19 Other drug induced secondary parkinsonism; I25.5 Ischemic cardiomyopathy; L40.9 Psoriasis, unspecified; Z95.1 Presence of aortocoronary bypass graft; F17.210 Nicotine dependence, cigarettes, uncomplicated; F20.9 Schizophrenia, unspecified; I73.9 Peripheral vascular disease, unspecified; E11.42 Type 2 diabetes mellitus with diabetic polyneuropathy; J44.9 Chronic obstructive pulmonary disease, unspecified; I25.2 Old myocardial infarction; T50.905A Adverse effect of unspecified drugs, medicaments and biological substances, initial encounter; D64.9 Anemia, unspecified
CPT/HCPCS: 36415; 80048; 80053; 82805; 84145; 87040; 87635; 93005; 93306; 96374; 96375; 97162; 99285; J1650; 71045; 80164; 81003; 83735; 83880; 84443; 84484; 85025; 93010; 99223; 99233; 99239; J1940; J2930; J7512

== ENCOUNTER 2021-05-16 15:02 | Outpatient (REF) | payer MEDICARE, MEDICAID, SELFPAY ==
[2021-05-16 15:50] LABS: Abs Immature Grans 0.03 10^3/uL (0.0-0.06); Absolute Basophil Count 0.06 10^3/uL (0.0-0.2); Absolute Monocyte Count 0.58 10^3/uL (0.1-0.8); Absolute Neutrophil Count 4.56 10^3/uL (1.2-6.7); Basophils % 0.9; Eosinophils % 3.2; HCT 36.5 % (40.0-50.0); HGB 11.7 g/dL (13.5-17.5); Immature Grans % 0.5; Lymphocytes % 14.2; MCH 29.3 pg (27.0-33.0); MCHC 32.1 % (32.0-36.0); MCV 91.5 fL (80-95); MPV 11.8 fL (8.0-11.0); Monocytes % 9.2; Nucleated RBC 0 %; Platelet Count 345 10^3/uL (130-400); RBC 3.99 10^6/uL (4.36-5.78); RDW 13.1 % (11.8-14.1); RDW-SD 44.2 fL; WBC 6.33 10^3/uL (4.4-10.8)
== END 2021-05-16 15:03 | disposition home or self-care (01) ==
LOC: LBN 15:02
PROVIDERS: PCP Family Medicine; Visit Provider Psychiatry & Neurology Psychiatry
DX: I50.21 Acute systolic (congestive) heart failure (principal); J96.01 Acute respiratory failure with hypoxia; I25.5 Ischemic cardiomyopathy
CPT/HCPCS: 85025

== ENCOUNTER → 2021-05-18 13:01 | Outpatient (BNVA) | payer MEDICARE, MEDICAID, SELFPAY | PROVIDERS: PCP Family Medicine; Visit Provider Internal Medicine Cardiovascular Disease | DX: I25.10 Atherosclerotic heart disease of native coronary artery without angina pectoris (principal); Z95.1 Presence of aortocoronary bypass graft; I25.5 Ischemic cardiomyopathy | CPT/HCPCS: 99214; 99213 ==

== ENCOUNTER 2021-05-23 03:31 | Outpatient (CLI) | payer MEDICARE, MEDICAID, SELFPAY ==
[2021-05-23 13:16] LABS: HGB 11.5 g/dL (13.5-17.5); MCH 29.8 pg (27.0-33.0); MCHC 31.9 % (32.0-36.0); MCV 93.3 fL (80-95); MPV 10.9 fL (8.0-11.0); Platelet Count 250 10^3/uL (130-400); RBC 3.86 10^6/uL (4.36-5.78); RDW 13.6 % (11.8-14.1); RDW-SD 46.1 fL; WBC 6.68 10^3/uL (4.4-10.8)
[2021-05-23 13:30] LABS: PTT Activated 27.1 sec (21.0-27.5); Prothrombin Time 10.3 sec (9.3-11.0)
[2021-05-23 13:56] LABS: Anion Gap 7.6 mmol/L (3-11); BUN 17 mg/dL (7-18); CO2 30.4 mmol/L (21.0-32.0); CREATININE 1.2 mg/dL (0.70-1.30); Calcium 8.8 mg/dL (8.5-10.1); Chloride 100 mmol/L (98-107); Estimated GFR 58.26 (mL/min/1.73m2); Glucose 218 mg/dL (74-106); Potassium 4.4 mmol/L (3.5-5.1); Sodium 138 mmol/L (136-145)
== END 2021-05-23 03:32 | disposition home or self-care (01) ==
LOC: LBO 03:32
PROVIDERS: Emergency Medicine; PCP Family Medicine; Visit Provider Internal Medicine Cardiovascular Disease
DX: E11.9 Type 2 diabetes mellitus without complications (principal); I25.10 Atherosclerotic heart disease of native coronary artery without angina pectoris
CPT/HCPCS: 36415; 80048; 85027; 83036; 85610; 85730

== ENCOUNTER 2021-06-06 18:27 | Outpatient (REF) | payer MEDICARE, MEDICAID, SELFPAY ==
[2021-06-06 14:39] LABS: Abs Immature Grans 0.02 10^3/uL (0.0-0.06); Absolute Basophil Count 0.06 10^3/uL (0.0-0.2); Absolute Eosinophil Count 0.26 10^3/uL (0.0-0.7); Absolute Lymphocyte Count 1.15 10^3/uL (1.2-3.4); Absolute Monocyte Count 0.64 10^3/uL (0.1-0.8); Absolute Neutrophil Count 5.74 10^3/uL (1.2-6.7); Basophils % 0.8; Eosinophils % 3.3; HCT 40.2 % (40.0-50.0); HGB 12.6 g/dL (13.5-17.5); Immature Grans % 0.3; Lymphocytes % 14.6; MCH 29.4 pg (27.0-33.0); MCHC 31.3 % (32.0-36.0); MCV 93.9 fL (80-95); MPV 12.4 fL (8.0-11.0); Monocytes % 8.1; Neutrophils % 72.9; Nucleated RBC 0 %; Platelet Count 192 10^3/uL (130-400); RBC 4.28 10^6/uL (4.36-5.78); RDW 14.3 % (11.8-14.1); RDW-SD 49.1 fL; WBC 7.87 10^3/uL (4.4-10.8)
== END 2021-06-06 18:28 | disposition home or self-care (01) ==
LOC: LBN 18:27
PROVIDERS: PCP Family Medicine; Visit Provider Psychiatry & Neurology Psychiatry
DX: F20.9 Schizophrenia, unspecified (principal); Z79.899 Other long term (current) drug therapy
CPT/HCPCS: 85025

== ENCOUNTER 2021-06-26 17:33 | Outpatient (REF) | payer MEDICARE, MEDICAID, SELFPAY ==
[2021-06-26 19:54] LABS: Abs Immature Grans 0.03 10^3/uL (0.0-0.06); Absolute Basophil Count 0.09 10^3/uL (0.0-0.2); Absolute Eosinophil Count 0.35 10^3/uL (0.0-0.7); Absolute Lymphocyte Count 1.12 10^3/uL (1.2-3.4); Absolute Monocyte Count 0.63 10^3/uL (0.1-0.8); Absolute Neutrophil Count 4.12 10^3/uL (1.2-6.7); Basophils % 1.4; Eosinophils % 5.5; HGB 11.8 g/dL (13.5-17.5); Immature Grans % 0.5; Lymphocytes % 17.7; MCH 29.4 pg (27.0-33.0); MCHC 31.9 % (32.0-36.0); MCV 92.3 fL (80-95); MPV 11.6 fL (8.0-11.0); Monocytes % 9.9; Nucleated RBC 0 %; Platelet Count 258 10^3/uL (130-400); RBC 4.01 10^6/uL (4.36-5.78); RDW 14.2 % (11.8-14.1); RDW-SD 48.2 fL; WBC 6.34 10^3/uL (4.4-10.8)
== END 2021-06-26 17:34 | disposition home or self-care (01) ==
LOC: LBN 17:33
PROVIDERS: PCP Family Medicine; Visit Provider Psychiatry & Neurology Psychiatry
DX: D64.9 Anemia, unspecified (principal)
CPT/HCPCS: 85025

== ENCOUNTER → 2021-07-03 13:12 | Outpatient (BNVA) | payer MEDICARE, MEDICAID, SELFPAY | PROVIDERS: PCP Family Medicine; Referring Provider Family Medicine; Visit Provider Internal Medicine Cardiovascular Disease | DX: I25.5 Ischemic cardiomyopathy (principal); I25.10 Atherosclerotic heart disease of native coronary artery without angina pectoris; I73.9 Peripheral vascular disease, unspecified | CPT/HCPCS: 99214; 99213 ==

== ENCOUNTER → 2021-07-03 13:41 | Outpatient (BNVA) | payer MEDICARE, MEDICAID, SELFPAY | PROVIDERS: PCP Family Medicine; Referring Provider Emergency Medicine; Visit Provider Nurse Practitioner Gerontology | DX: N40.1 Benign prostatic hyperplasia with lower urinary tract symptoms (principal); R35.1 Nocturia | CPT/HCPCS: 99214; 99213 ==

== ENCOUNTER 2021-07-18 13:13 | Outpatient (REF) | payer MEDICARE, MEDICAID, SELFPAY ==
[2021-07-18 16:16] LABS: Abs Immature Grans 0.02 10^3/uL (0.0-0.06); Absolute Basophil Count 0.08 10^3/uL (0.0-0.2); Absolute Eosinophil Count 0.33 10^3/uL (0.0-0.7); Absolute Lymphocyte Count 1.14 10^3/uL (1.2-3.4); Absolute Monocyte Count 0.56 10^3/uL (0.1-0.8); Absolute Neutrophil Count 3.71 10^3/uL (1.2-6.7); Basophils % 1.4; Eosinophils % 5.7; HCT 37.2 % (40.0-50.0); HGB 11.6 g/dL (13.5-17.5); Immature Grans % 0.3; Lymphocytes % 19.5; MCH 29.4 pg (27.0-33.0); MCHC 31.2 % (32.0-36.0); MCV 94.2 fL (80-95); MPV 12.4 fL (8.0-11.0); Monocytes % 9.6; Neutrophils % 63.5; Nucleated RBC 0 %; Platelet Count 197 10^3/uL (130-400); RBC 3.95 10^6/uL (4.36-5.78); RDW 14.2 % (11.8-14.1); RDW-SD 49.7 fL; WBC 5.84 10^3/uL (4.4-10.8)
== END 2021-07-18 13:14 | disposition home or self-care (01) ==
LOC: LBN 13:13
PROVIDERS: PCP Family Medicine; Visit Provider Psychiatry & Neurology Psychiatry
DX: F20.9 Schizophrenia, unspecified (principal)
CPT/HCPCS: 85025

== ENCOUNTER 2021-08-08 13:07 | Outpatient (REF) | payer MEDICARE, MEDICAID, SELFPAY ==
[2021-08-08 13:54] LABS: Abs Immature Grans 0.03 10^3/uL (0.0-0.06); Absolute Basophil Count 0.06 10^3/uL (0.0-0.2); Absolute Eosinophil Count 0.16 10^3/uL (0.0-0.7); Absolute Lymphocyte Count 0.75 10^3/uL (1.2-3.4); Absolute Monocyte Count 0.58 10^3/uL (0.1-0.8); Basophils % 0.9; Eosinophils % 2.3; HCT 34.6 % (40.0-50.0); Immature Grans % 0.4; Lymphocytes % 10.9; MCH 30.1 pg (27.0-33.0); MCHC 31.8 % (32.0-36.0); MCV 94.8 fL (80-95); MPV 12.2 fL (8.0-11.0); Monocytes % 8.4; Neutrophils % 77.1; Platelet Count 201 10^3/uL (130-400); RBC 3.65 10^6/uL (4.36-5.78); RDW 14.8 % (11.8-14.1); RDW-SD 52.1 fL; WBC 6.88 10^3/uL (4.4-10.8)
== END 2021-08-08 13:08 | disposition home or self-care (01) ==
LOC: LBN 13:07
PROVIDERS: PCP Family Medicine; Visit Provider Psychiatry & Neurology Psychiatry
DX: D64.9 Anemia, unspecified (principal)
CPT/HCPCS: 85025

== ENCOUNTER → 2021-08-17 14:00 | Outpatient (BNVA) | payer MEDICARE, MEDICAID, SELFPAY | PROVIDERS: PCP Family Medicine; Visit Provider Internal Medicine Cardiovascular Disease | DX: I25.10 Atherosclerotic heart disease of native coronary artery without angina pectoris (principal); I25.5 Ischemic cardiomyopathy; Z95.1 Presence of aortocoronary bypass graft | CPT/HCPCS: 99214; 99213 ==

== ENCOUNTER 2021-08-31 18:56 | Outpatient (REF) | payer MEDICARE, MEDICAID, SELFPAY ==
[2021-08-31 12:41] LABS: Abs Immature Grans 0.02 10^3/uL (0.0-0.06); Absolute Basophil Count 0.06 10^3/uL (0.0-0.2); Absolute Eosinophil Count 0.26 10^3/uL (0.0-0.7); Absolute Monocyte Count 0.68 10^3/uL (0.1-0.8); Absolute Neutrophil Count 4.97 10^3/uL (1.2-6.7); Basophils % 0.8; Eosinophils % 3.6; HGB 11.5 g/dL (13.5-17.5); Immature Grans % 0.3; Lymphocytes % 16.7; MCH 30.3 pg (27.0-33.0); MCHC 31.9 % (32.0-36.0); MCV 95 fL (80-95); MPV 11.9 fL (8.0-11.0); Monocytes % 9.5; Neutrophils % 69.1; Platelet Count 197 10^3/uL (130-400); RBC 3.79 10^6/uL (4.36-5.78); RDW 14.3 % (11.8-14.1); RDW-SD 49.8 fL; WBC 7.19 10^3/uL (4.4-10.8)
== END 2021-08-31 18:57 | disposition home or self-care (01) ==
LOC: LBN 18:56
PROVIDERS: PCP Family Medicine; Visit Provider Psychiatry & Neurology Psychiatry
DX: F20.9 Schizophrenia, unspecified (principal); Z79.899 Other long term (current) drug therapy
CPT/HCPCS: 85025

== ENCOUNTER 2021-09-19 03:50 | Outpatient (CLI) | payer MEDICARE, MEDICAID, SELFPAY ==
[2021-09-19 12:58] LABS: Abs Immature Grans 0.02 10^3/uL (0.0-0.06); Absolute Basophil Count 0.06 10^3/uL (0.0-0.2); Absolute Eosinophil Count 0.27 10^3/uL (0.0-0.7); Absolute Lymphocyte Count 1.03 10^3/uL (1.2-3.4); Absolute Monocyte Count 0.84 10^3/uL (0.1-0.8); Absolute Neutrophil Count 4.97 10^3/uL (1.2-6.7); Basophils % 0.8; Eosinophils % 3.8; HCT 36.9 % (40.0-50.0); HGB 11.8 g/dL (13.5-17.5); Immature Grans % 0.3; Lymphocytes % 14.3; MCH 29.8 pg (27.0-33.0); MCV 93 fL (80-95); MPV 11.1 fL (8.0-11.0); Monocytes % 11.7; Neutrophils % 69.1; Platelet Count 247 10^3/uL (130-400); RBC 3.96 10^6/uL (4.36-5.78); RDW 13.7 % (11.8-14.1); RDW-SD 46.4 fL; WBC 7.19 10^3/uL (4.4-10.8)
== END 2021-09-19 03:51 | disposition home or self-care (01) ==
LOC: LBO 03:51
PROVIDERS: Visit Provider Psychiatry & Neurology Psychiatry
DX: F20.9 Schizophrenia, unspecified (principal); Z79.899 Other long term (current) drug therapy
CPT/HCPCS: 36415; 85025

== ENCOUNTER 2021-10-12 01:44 | Outpatient (CLI) | payer MEDICARE, MEDICAID, SELFPAY ==
[2021-10-12 12:47] LABS: Abs Immature Grans 0.03 10^3/uL (0.0-0.06); Absolute Basophil Count 0.06 10^3/uL (0.0-0.2); Absolute Lymphocyte Count 1.04 10^3/uL (1.2-3.4); Absolute Monocyte Count 0.63 10^3/uL (0.1-0.8); Absolute Neutrophil Count 4.57 10^3/uL (1.2-6.7); Basophils % 0.9; Eosinophils % 3.1; HCT 37.6 % (40.0-50.0); HGB 12.2 g/dL (13.5-17.5); Immature Grans % 0.5; Lymphocytes % 15.9; MCH 30.4 pg (27.0-33.0); MCHC 32.4 % (32.0-36.0); MCV 94 fL (80-95); MPV 11.2 fL (8.0-11.0); Monocytes % 9.6; Platelet Count 213 10^3/uL (130-400); RBC 4.01 10^6/uL (4.36-5.78); RDW 14.1 % (11.8-14.1); RDW-SD 48.5 fL; WBC 6.53 10^3/uL (4.4-10.8)
== END 2021-10-12 01:45 | disposition home or self-care (01) ==
LOC: LBO 01:45
PROVIDERS: Visit Provider Psychiatry & Neurology Psychiatry
DX: F20.9 Schizophrenia, unspecified (principal); Z79.899 Other long term (current) drug therapy
CPT/HCPCS: 36415; 85025

== ENCOUNTER 2021-11-02 01:32 | Outpatient (CLI) | payer MEDICARE, MEDICAID, SELFPAY ==
[2021-11-02 12:53] LABS: Abs Immature Grans 0.03 10^3/uL (0.0-0.06); Absolute Basophil Count 0.06 10^3/uL (0.0-0.2); Absolute Eosinophil Count 0.23 10^3/uL (0.0-0.7); Absolute Lymphocyte Count 1.23 10^3/uL (1.2-3.4); Absolute Monocyte Count 0.72 10^3/uL (0.1-0.8); Absolute Neutrophil Count 5.21 10^3/uL (1.2-6.7); Basophils % 0.8; Eosinophils % 3.1; HCT 36.2 % (40.0-50.0); Immature Grans % 0.4; Lymphocytes % 16.4; MCH 30.4 pg (27.0-33.0); MCHC 33.1 % (32.0-36.0); MCV 92 fL (80-95); MPV 10.6 fL (8.0-11.0); Monocytes % 9.6; Neutrophils % 69.7; Platelet Count 227 10^3/uL (130-400); RBC 3.95 10^6/uL (4.36-5.78); RDW 14.2 % (11.8-14.1); RDW-SD 48.1 fL; WBC 7.48 10^3/uL (4.4-10.8)
== END 2021-11-02 01:33 | disposition home or self-care (01) ==
LOC: LBO 01:33
PROVIDERS: Visit Provider Psychiatry & Neurology Psychiatry
DX: F20.9 Schizophrenia, unspecified (principal); Z79.899 Other long term (current) drug therapy
CPT/HCPCS: 36415; 85025

== ENCOUNTER → 2021-11-12 12:46 | Outpatient (BNVA) | payer MEDICARE, MEDICAID, SELFPAY | PROVIDERS: Visit Provider Internal Medicine Cardiovascular Disease | DX: I25.10 Atherosclerotic heart disease of native coronary artery without angina pectoris (principal); I25.5 Ischemic cardiomyopathy; I73.9 Peripheral vascular disease, unspecified; Z95.1 Presence of aortocoronary bypass graft | CPT/HCPCS: 99214 ==

== ENCOUNTER 2021-11-23 01:18 | Outpatient (CLI) | payer MEDICARE, MEDICAID, SELFPAY ==
[2021-11-23 13:07] LABS: Abs Immature Grans 0.01 10^3/uL (0.0-0.06); Absolute Basophil Count 0.06 10^3/uL (0.0-0.2); Absolute Monocyte Count 0.67 10^3/uL (0.1-0.8); Absolute Neutrophil Count 4.67 10^3/uL (1.2-6.7); Basophils % 0.9; HCT 36.3 % (40.0-50.0); HGB 11.8 g/dL (13.5-17.5); Immature Grans % 0.2; Lymphocytes % 15.1; MCH 29.9 pg (27.0-33.0); MCHC 32.5 % (32.0-36.0); MCV 92 fL (80-95); MPV 10.3 fL (8.0-11.0); Monocytes % 10.1; Neutrophils % 70.7; Platelet Count 236 10^3/uL (130-400); RBC 3.94 10^6/uL (4.36-5.78); RDW-SD 47.8 fL; WBC 6.61 10^3/uL (4.4-10.8)
[2021-11-23 13:27] LABS: Hemoglobin A1C 6.4 % (<5.7)
[2021-11-23 13:56] LABS: ALT 18 U/L (16-63); AST 12 U/L (15-37); Albumin 3.1 g/dL (3.4-5.0); Alkaline Phosphatase 77 U/L (46-116); BUN 18 mg/dL (7-18); Bilirubin, Total 0.2 mg/dL (0.2-1.0); CREATININE 1.3 mg/dL (0.70-1.30); Calcium 8.9 mg/dL (8.5-10.1); Chloride 97 mmol/L (98-107); Estimated GFR 52.98 (mL/min/1.73m2); FREE T4 1.09 ng/dL (0.76-1.46); Glucose 114 mg/dL (74-106); Magnesium 1.8 mg/dL (1.8-2.4); Sodium 135 mmol/L (136-145); TSH 0.98 uIU/mL (0.36-3.74); Total Protein 6.7 g/dL (6.4-8.2)
[2021-11-23 14:01] LABS: Iron 50 ug/dL (65-175)
[2021-11-23 14:02] LABS: VALPROIC ACID 37.3 ug/mL
[2021-11-23 14:37] LABS: Calculated LDL 84 mg/dL (<100); Cholesterol 152 mg/dL (<200); HDL Cholesterol 49 mg/dL (40-60); Triglyceride 96 mg/dL (<150); Vitamin B12 492 pg/mL (193-986)
[2021-11-23 22:17] LABS: T3,Free 2.9 pg/mL (2.8-5.3)
[2021-11-26 11:00] LABS: Homocysteine 12.8 umol/L (5.0-13.9)
[2021-11-26 12:40] LABS: Zinc, S 70 mcg/dL (60-106)
== END 2021-11-23 01:19 | disposition home or self-care (01) ==
LOC: LBO 01:18
PROVIDERS: Visit Provider Psychiatry & Neurology Psychiatry
DX: F25.0 Schizoaffective disorder, bipolar type; Z13.89 Encounter for screening for other disorder; Z13.21 Encounter for screening for nutritional disorder
CPT/HCPCS: 36415; 80053; 80061; 83090; 84630; 80164; 82607; 83036; 83540; 83735; 84439; 84443; 84481; 85025

== ENCOUNTER 2021-12-14 01:10 | Outpatient (CLI) | payer MEDICARE, MEDICAID, SELFPAY ==
[2021-12-14 13:18] LABS: Abs Immature Grans 0.02 10^3/uL (0.0-0.06); Absolute Basophil Count 0.07 10^3/uL (0.0-0.2); Absolute Eosinophil Count 0.15 10^3/uL (0.0-0.7); Absolute Lymphocyte Count 0.99 10^3/uL (1.2-3.4); Absolute Monocyte Count 0.65 10^3/uL (0.1-0.8); Absolute Neutrophil Count 4.52 10^3/uL (1.2-6.7); Basophils % 1.1; Eosinophils % 2.3; HCT 34.6 % (40.0-50.0); HGB 11.2 g/dL (13.5-17.5); Immature Grans % 0.3; Lymphocytes % 15.5; MCH 29.6 pg (27.0-33.0); MCHC 32.4 % (32.0-36.0); MCV 92 fL (80-95); MPV 10.8 fL (8.0-11.0); Monocytes % 10.2; Neutrophils % 70.6; Platelet Count 213 10^3/uL (130-400); RBC 3.78 10^6/uL (4.36-5.78); RDW 14.2 % (11.8-14.1); RDW-SD 47.6 fL
[2021-12-14 14:04] LABS: Iron 39 ug/dL (65-175); Total Iron Binding Capacity 267 ug/dL (250-450); Transferrin Sat 15 % (20-55)
[2021-12-14 14:25] LABS: Ferritin 56 ng/mL (26-388)
[2021-12-14 14:27] LABS: Folate > 20.0 ng/mL (8.6-20.0)
[2021-12-15 15:02] LABS: Copper, Serum 110 mcg/dL (73-129)
[2021-12-17 10:59] LABS: Transferrin 202 mg/dL (201-352)
[2021-12-17 22:42] LABS: Clozapine 327 ng/mL (350-600); Clozapine+Norclozapine Total 407 ng/mL; Norclozapine 80 ng/mL
[2021-12-20 12:58] LABS: 1,25-Dihydroxyvitamin D 18 pg/mL (18-64)
== END 2021-12-14 01:11 | disposition home or self-care (01) ==
LOC: LBO 01:11
PROVIDERS: Visit Provider Psychiatry & Neurology Psychiatry
DX: F25.0 Schizoaffective disorder, bipolar type (principal); Z51.81 Encounter for therapeutic drug level monitoring; Z79.899 Other long term (current) drug therapy; E11.9 Type 2 diabetes mellitus without complications; D64.9 Anemia, unspecified
CPT/HCPCS: 36415; 82306; 82525; 80159; 82652; 82728; 82746; 83540; 83550; 84466; 85025

== ENCOUNTER 2022-01-04 01:38 | Outpatient (CLI) | payer MEDICARE, MEDICAID, SELFPAY ==
[2022-01-04 13:18] LABS: Abs Immature Grans 0.02 10^3/uL (0.0-0.06); Absolute Basophil Count 0.05 10^3/uL (0.0-0.2); Absolute Eosinophil Count 0.15 10^3/uL (0.0-0.7); Absolute Lymphocyte Count 0.95 10^3/uL (1.2-3.4); Absolute Monocyte Count 0.66 10^3/uL (0.1-0.8); Absolute Neutrophil Count 4.83 10^3/uL (1.2-6.7); Basophils % 0.8; Eosinophils % 2.3; HCT 35.7 % (40.0-50.0); HGB 11.6 g/dL (13.5-17.5); Immature Grans % 0.3; Lymphocytes % 14.3; MCH 29.9 pg (27.0-33.0); MCHC 32.5 % (32.0-36.0); MCV 92 fL (80-95); MPV 11.3 fL (8.0-11.0); Monocytes % 9.9; Neutrophils % 72.4; Platelet Count 232 10^3/uL (130-400); RBC 3.88 10^6/uL (4.36-5.78); RDW 14.4 % (11.8-14.1); RDW-SD 49.1 fL; WBC 6.66 10^3/uL (4.4-10.8)
== END 2022-01-04 01:39 | disposition home or self-care (01) ==
LOC: LBO 01:38
PROVIDERS: Visit Provider Psychiatry & Neurology Psychiatry
DX: F20.9 Schizophrenia, unspecified (principal)
CPT/HCPCS: 36415; 85025

== ENCOUNTER 2022-01-14 17:12 | Inpatient (IN) | payer MEDICARE, MEDICAID, SELFPAY ==
[2022-01-14] VITALS (10 sets, daily range): BP systolic 102–121; BP diastolic 43–71; PULSE 92–102; RESP 19–26; TEMP 37–37.2; O2SAT 91–97
--- NOTE | 2022-01-14 17:15 | RT.EKG_ITS ---
APPROVED REPORT Exam: Resting ECG Reason for Exam: sob Patient Location: E HR:99 bpm ECG Measurements Heart Rate 99 AXIS IL 159 P 24 QRSd 137 QRS -48 QT 359 T 138 QTc 460 Conclusion Sinus rhythm...normal P axis, V-rate 60- 99 Left bundle branch block...QRSd>120, broad/notched R Physician: no stemi, LBBB, negative sgarbossa
--- NOTE | 2022-01-14 17:23 | ED.GENADUL_ITS ---
Discharge Plan Disposition Patient Disposition: [facility] INPATIENT Condition: Stable Discharge Details Chief Complaint: GenMedical Clinical Impression: Pneumonia, Hypoxemia Primary Care Provider: Ruth Ann Christianson ED Provider: Andrew Soliz Home Meds and New Rx's Prescriptions: No Action (DME) OneTouch Ultra Test Strip 1 ea Miscellaneous DAILY Qty: 100 3RF Rx Instructions: e11.9 trazodone 50 mg tablet 50 mg PO QHS PRN (Reason: sleep) Rx Instructions: take 1/2 tab (25mg)at HS PRN potassium chloride 10 mEq capsule, extended release 10 meq PO DAILY clopidogrel 75 mg tablet 75 mg PO DAILY Qty: 90 3RF nitroglycerin 0.4 mg tablet, sublingual 0.4 mg sublingual Q5M PRN (Reason: chest pain) Qty: 20 1RF Rx Instructions: do not exceed 3 doses per episode rosuvastatin 5 mg tablet 5 mg PO DAILY Qty: 90 3RF clozapine 25 mg tablet 50 mg PO HS Label Comments: for total of 150mg at bedtime. tamsulosin [Flomax] 0.4 mg capsule 0.4 mg PO DAILY Qty: 90 3RF betamethasone dipropionate 0.05 % ointment 1 applic topical BID triamcinolone acetonide 0.1 % ointment 1 applic topical BID Qty: 80 1RF Rx Instructions: to affected area (DME) blood-glucose meter 1 EACH misc 1 ea Miscellaneous ONCE Qty: 1 Rx Instructions: Dx 250.00 for ONE TOUCH ULTRA MINI GLUCOMETER (DME) blood-glucose meter [OneTouch UltraMini] 1 EACH kit 1 ea Miscellaneous DAILY Qty: 1 clozapine 100 mg tablet 100 mg PO QAM AND QHS (DME) lancets 28 gauge misc 1 ea Miscellaneous DAILY Qty: 100 3RF Rx Instructions: FOR ONE TOUCH ULTRA MINI METER. NO INSULIN. DIAGNOSIS CODE 250.02 pantoprazole 40 mg tablet,delayed release (DR/EC) 40 mg PO DAILY Qty: 90 4RF budesonide-formoterol [Symbicort] 80-4.5 mcg/actuation HFA aerosol inhaler 2 puff inhalation BID Qty: 1 11RF aspirin [Ecotrin Low Strength] 81 mg tablet,delayed release (DR/EC) 81 mg PO DAILY Qty: 90 3RF metformin 500 mg tablet 500 mg PO BID Qty: 180 3RF metoprolol succinate 50 mg tablet extended release 24 hr 50 mg PO DAILY Qty: 90 4RF multivitamin Tablet 1 tab PO DAILY Qty: 90 3RF (DME) lancets [OneTouch UltraSoft Lancets] Misc 1 ea Miscellaneous DAILY Qty: 100 3RF Rx Instructions: E.11.9 1 device BID as directed (DME) Blood Glucose Test Strip 1 ea Miscellaneous DAILY Qty: 100 4RF Rx Instructions: BID testing. FOR ONE TOUCH ULTRA MINI METER. Entresto 49-51 mg tablet 1 tab PO BID Qty: 180 5RF ferrous sulfate 325 mg (65 mg iron) tablet See Rx Instructions .ROUTE .COMPLEX Qty: 28 11RF Dose Instruction: TAKE 1 TABLET BY MOUTH DAILY Rx Instructions: TAKE 1 TABLET BY MOUTH DAILY docusate sodium [Colace] 100 mg capsule 200 mg PO BID Qty: 360 3RF acetaminophen [Acetaminophen Extra Strength] 500 mg tablet 1,000 mg PO Q6H PRN Qty: 360 1RF Ensure Liquid See Rx Instructions PO .COMPLEX Qty: 5688 12RF Rx Instructions: I can daily PO; CHOCCOLATE ONLY ONE TOLERATED furosemide [Lasix] 20 mg tablet 40 mg PO BID Qty: 360 4RF divalproex 250 mg tablet,delayed release (DR/EC) 1,000 mg PO HS albuterol sulfate 90 mcg/actuation HFA aerosol inhaler 2 puff IH QID PRN PRNQty: 18 6RF Medical Decision Making 81-year-old male with a past medical history of type 2 diabetes, ischemic cardiomyopathy, palliative care patient but is also full code, COPD, schizophrenia, CABG on Plavix, who presents today for cough and shortness of breath. Patient states that about a week ago he was exposed to someone with COVID, office 2 to 3 days he has had cough, chills, and mild shortness of breath. Upon EMS arrival they were called for a lift assist and found that he was slightly hypoxic at about 91 to 92%. 2 L of nasal cannula oxygenation brought him up immediately to 95 to 96%. Patient was brought to the ER for further assessment. He denies any chest pain or weight gain recently. He denies any vomiting or diarrhea. He denies any urinary complaints. No other complaints at this time. No other modifying factors. Exam demonstrates well-appearing male, vitals are stable. Mild crackles in the left lower lung field. No peripheral edema. Differential is highest for bacterial pneumonia on top of potential viral or COVID-pneumonia. We will evaluate for these etiologies, monitor closely and reassess. 7:22 PM Laboratory work-up is returned, patient has a mildly elevated white count at 13.7, troponin normal, EKG stable with a left bundle branch block. proBNP is slightly lower than normal at 2600. COVID test and flu are both negative. Chest x-ray shows evidence of a left lower lobe pneumonia. We did get the patient, and ambulated him around the department and unfortunately he did not do very well. Patient got hypoxic into the 80s although he was initially resting in the mid 90s. He became weak, slightly diaphoretic, and needed 2 person assist back to bed. The patient's age risk factors and hypoxemia I do not think he is a good candidate for discharge home. We will start ceftriaxone and doxycycline for community-acquired pneumonia. I will contact the hospitalist for admission. Discussed the case with Dr. Jennings, he agrees with the assessment and plan. I have extensively reviewed the treatment plan with the patient. I have addressed all patient concerns at this time. I have also discussed the plan with the admitting physician and they agree with the current assessment and plan and have agreed to assume responsibility for the patient. All parties demonstrate verbal understanding and agreement with our assessment and plan at this time. The documentation in this chart was dictated using [email or web address] dictation software. Please excuse any dictation errors. FINDINGS: Lungs: Chronic interstitial prominence. Question vague left lower lobe opacity Pleural spaces: No pleural effusion. No pneumothorax. Heart/Mediastinum: Grossly stable. Bones/joints: Grossly stable. IMPRESSION: Question vague left lower lobe opacity which may represent subsegmental atelectasis versus developing pneumonia Thank you for allowing us to participate in the care of your patient. Dictated and Authenticated by: Scott Caban MD 01/14/2022 6:39 PM Eastern Time ([place] & [place]) HPI General Date/Time Provider Initiated Documentation: 01/14/22 17:20 . HPI Narrative: 81-year-old male with a past medical history of type 2 diabetes, ischemic cardiomyopathy, palliative care patient but is also full code, COPD, schizophrenia, CABG on Plavix, who presents today for cough and shortness of breath. Patient states that about a week ago he was exposed to someone with COVID, office 2 to 3 days he has had cough, chills, and mild shortness of breath. Upon EMS arrival they were called for a lift assist and found that he was slightly hypoxic at about 91 to 92%. 2 L of nasal cannula oxygenation brought him up immediately to 95 to 96%. Patient was brought to the ER for further assessment. He denies any chest pain or weight gain recently. He denies any vomiting or diarrhea. He denies any urinary complaints. No other complaints at this time. No other modifying factors. Related Data Home Medications Medication Instructions Recorded Confirmed blood-glucose meter #1 ea 05/18/14 01/02/22 blood-glucose meter (Elastagenuch ##1 06/14/14 01/02/22 UltraMini kit) clozapine 100 mg tablet 100 mg PO QAM AND QHS 11/12/18 01/02/22 clozapine 25 mg tablet 50 mg PO HS 11/12/18 01/02/22 divalproex 250 mg tablet,delayed 1,000 mg PO HS 06/14/19 01/02/22 release lancets 28 gauge #100 ea 04/10/20 01/02/22 betamethasone dipropionate 0.05 % 1 applic topical BID 08/17/20 01/02/22 topical ointment pantoprazole 40 mg tablet,delayed 40 mg PO DAILY #90 tab-caps 01/20/21 01/02/22 release albuterol sulfate 90 mcg/actuation 2 puff inhalation QID PRN PRN #18 04/24/21 01/02/22 aerosol inhaler grams budesonide-formoterol HFA 80 2 puff inhalation BID #1 g 05/11/21 01/02/22 mcg-4.5 mcg/actuation aerosol inhaler (Symbicort) aspirin 81 mg tablet,delayed 81 mg PO DAILY #90 tabs 05/15/21 01/02/22 release (Ecotrin Low Strength) triamcinolone acetonide 0.1 % 1 applic topical BID #80 grams 05/28/21 01/02/22 topical ointment metformin 500 mg tablet 500 mg PO BID #180 tab-caps 06/11/21 01/02/22 clopidogrel 75 mg tablet 75 mg PO DAILY #90 tabs 07/03/21 01/02/22 potassium chloride 10 mEq 10 meq PO DAILY 07/03/21 01/02/22 capsule,extended release tamsulosin 0.4 mg capsule (Flomax) 0.4 mg PO DAILY #90 caps 07/03/21 01/02/22 metoprolol succinate 50 mg 50 mg PO DAILY #90 tabs 08/03/21 01/02/22 tablet,extended release 24 hr multivitamin 1 tab PO DAILY #90 tab-caps 08/03/21 01/02/22 blood sugar diagnostic (Blood #100 strips 08/16/21 01/02/22 Glucose Test strips) lancets (OneTouch UltraSoft #100 ea 08/16/21 01/02/22 Lancets) blood sugar diagnostic (OneTouch #100 strips 08/17/21 01/02/22 Ultra Test strips) sacubitril 49 mg-valsartan 51 mg 1 tab PO BID #180 tabs 08/30/21 01/02/22 tablet (Entresto) trazodone 50 mg tablet 50 mg PO QHS PRN sleep 09/11/21 01/02/22 ferrous sulfate 325 mg (65 mg See Rx Instructions .Route 09/28/21 01/02/22 iron) tablet .COMPLEX #28 tabs docusate sodium 100 mg capsule 200 mg PO BID #360 caps 10/24/21 01/02/22 (Colace) acetaminophen 500 mg tablet 1,000 mg PO Q6H PRN #360 tab-caps 10/29/21 01/02/22 (Acetaminophen Extra Strength) food supplemt, lactose-reduced See Rx Instructions PO .COMPLEX 11/10/21 01/02/22 (Ensure oral liquid) CHOCOLATE ONLY #5,688 mL nitroglycerin 0.4 mg sublingual 0.4 mg sublingual Q5M PRN chest 11/12/21 01/02/22 tablet pain #20 tabs rosuvastatin 5 mg tablet 5 mg PO DAILY #90 tabs 11/12/21 01/02/22 furosemide 20 mg tablet (Lasix) 40 mg PO BID #360 tabs 12/18/21 01/02/22 Previous Rx's Medication Instructions Recorded lancets 28 gauge #100 ea 04/10/20 pantoprazole 40 mg tablet,delayed 40 mg PO DAILY #90 tab-caps 01/20/21 release albuterol sulfate 90 mcg/actuation 2 puff inhalation QID PRN PRN #18 04/24/21 aerosol inhaler grams budesonide-formoterol HFA 80 2 puff inhalation BID #1 g 05/11/21 mcg-4.5 mcg/actuation aerosol inhaler (Symbicort) aspirin 81 mg tablet,delayed 81 mg PO DAILY #90 tabs 05/15/21 release (Ecotrin Low Strength) triamcinolone acetonide 0.1 % 1 applic topical BID #80 grams 05/28/21 topical ointment metformin 500 mg tablet 500 mg PO BID #180 tab-caps 06/11/21 clopidogrel 75 mg tablet 75 mg PO DAILY #90 tabs 07/03/21 tamsulosin 0.4 mg capsule (Flomax) 0.4 mg PO DAILY #90 caps 07/03/21 metoprolol succinate 50 mg 50 mg PO DAILY #90 tabs 08/03/21 tablet,extended release 24 hr multivitamin 1 tab PO DAILY #90 tab-caps 08/03/21 blood sugar diagnostic (Blood #100 strips 08/16/21 Glucose Test strips) lancets (OneTouch UltraSoft #100 ea 08/16/21 Lancets) blood sugar diagnostic (OneTouch #100 strips 08/17/21 Ultra Test strips) sacubitril 49 mg-valsartan 51 mg 1 tab PO BID #180 tabs 08/30/21 tablet (Entresto) ferrous sulfate 325 mg (65 mg See Rx Instructions .Route 09/28/21 iron) tablet .COMPLEX #28 tabs docusate sodium 100 mg capsule 200 mg PO BID #360 caps 10/24/21 (Colace) acetaminophen 500 mg tablet 1,000 mg PO Q6H PRN #360 tab-caps 10/29/21 (Acetaminophen Extra Strength) food supplemt, lactose-reduced See Rx Instructions PO .COMPLEX 11/10/21 (Ensure oral liquid) CHOCOLATE ONLY #5,688 mL nitroglycerin 0.4 mg sublingual 0.4 mg sublingual Q5M PRN chest 11/12/21 tablet pain #20 tabs rosuvastatin 5 mg tablet 5 mg PO DAILY #90 tabs 11/12/21 furosemide 20 mg tablet (Lasix) 40 mg PO BID #360 tabs 12/18/21 Allergies Allergy/AdvReac Type Severity Reaction Status Date / Time meperidine HCl [From Demerol] Allergy Unknown Verified 01/02/22 14:31 General Stated Complaint: GenMedical KIMBERLEE: 3 Review of Systems All systems reviewed & are unremarkable except as noted in HPI and below PFSH All Active Problems (Updated 01/14/22 @ 19:29 by Andrew Soliz DO) Pneumonia (Acute) Hypoxemia (Acute) Anemia (Chronic) 2021-chronic, mild, history of iron deficiency Type 2 diabetes mellitus with diabetic neuropathy, unspecified (Acute) Ischemic cardiomyopathy (Acute) Palliative care patient (Acute) Diabetic foot ulcer (Acute) 08/2021-1:00, longstanding superficial ulceration right lateral malleolus Psoriasis (Chronic) Hematuria (Acute) Total urinary incontinence (Acute 12/02/07) Right leg claudication (Acute 09/06/14) Peripheral neuralgia (Acute 12/02/07) 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 NSTEMI 06/07. EF 40% Threatening behavior (Active 10/23/12) Medical History Anemia (03/11/12) Chronic obstructive lung disease (12/02/07) Coronary atherosclerosis of [place] coronary vessel (12/02/07) s/p CABG 2004 with diminished ejection fraction. Diabetes mellitus periphreal neuropathy of feet Ischemic cardiomyopathy Peripheral vascular disease (12/02/07) bilateral leg claudication. Wants no intervention Schizophrenia (10/19/13) Periods of severe hypomania and agitation Smoker Surgical History Appendectomy Cholecystectomy Colonoscopy - MAC 05/14/12 Coronary Artery Bypass [place] (CABG) 2004 HERNIA REPAIR RIGHT Family History Mother No problems noted. Father Heart disease Brother No problems noted. Social History Smoking/Tobacco Use Status: Current every day Tobacco Type: cigarettes Tobacco: How many years used: 55 Quit status: not considering quitting Counseling given: patient declined Smoking risk assessment performed?: Yes Alcohol Intake: never Drug use: Never Substance use type: does not use Caregiver/Support person: No Household members: none Pets and animals: No Sexually active: No Do you think of yourself as: straight/heterosexual Current gender identity: male What is your relationship status?: How often do you talk on the phone with friends or family?: three or more times per week How often do you attend catholic or tenriism services?: decline to answer Do you belong to any clubs or organized social groups?: yes Panel score (0-1 are the most socially isolated patients): 2 What type of physical activity do you participate in: none and additional Details: only walks in home. 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 3.ENT: Atraumatic external nose and ears. Moist MM. Neck: Symmetric, trachea midline, No thyromegaly. 4.CVS: +S1/S2, No murmurs or gallops. Peripheral pulses 2+ and equal in all extremities. Brisk capillary refill in all extremities. 5.RESP: Unlabored respiratory effort, mild crackles in the left lower lung pierson. No wheezes. 6.GI: Soft, Nontender/Nondistended, No hepatosplenomegaly. No guarding or rebound. 7.MSK: Normocephalic/Atraumatic, Extremities w/o deformity or ttp No cyanosis or clubbing, Normal movement of all extremities, no peripheral edema 8.Skin: Warm, Dry. No rashes or lesions. 9.Neuro: sexton helper II-XII grossly intact. Sensation grossly intact, no focal neurologic deficits. 10.Psych: (AAO) x3. Appropriate mood and affect Course Vital Signs Vital signs: Vital Signs Temperature 37.2 C 01/14/22 17:11 Pulse 102 H 01/14/22 17:11 Respiratory Rate 25 H 01/14/22 17:11 Blood Pressure 114/47 L 01/14/22 17:11 Pulse Oximetry 92 01/14/22 17:11 Temperature 37.2 C 01/14/22 17:11 Temperature Source Skin 01/14/22 17:11 Pulse 102 H 01/14/22 17:11 Respiratory Rate 25 H 01/14/22 17:11 Blood Pressure 114/47 L 01/14/22 17:11 Blood Pressure Position Supine 01/14/22 17:11 Pulse Oximetry 97 01/14/22 17:20 Oxygen Delivery Method Nasal Cannula 01/14/22 17:20 Oxygen Flow Rate 2 01/14/22 17:20 Pain Level 0 01/14/22 17:11 Lab/Test Results Lab/Test Results: 01/14/22 17:21 Blood Blood Culture - Pending 01/14/22 17:21 Blood Blood Culture - Pending
[2022-01-14 17:54] LABS: BE (Venous) 10 mmol/L (-2-3); HCO3 (Venous) 34 mmol/L (23-28); O2 Sat (Venous) 80 %; TCO2 (Venous) 31 mmol/L (24-29); pCO2 (Venous) 48 mmHg (41-51); pH (Venous) 7.46 (7.31-7.41); pO2 (Venous) 44 mmHg
[2022-01-14 17:55] LABS: Abs Immature Grans 0.05 10^3/uL (0.0-0.06); Absolute Basophil Count 0.04 10^3/uL (0.0-0.2); Absolute Eosinophil Count 0.01 10^3/uL (0.0-0.7); Absolute Lymphocyte Count 0.47 10^3/uL (1.2-3.4); Basophils % 0.3; Eosinophils % 0.1; HCT 34.4 % (40.0-50.0); HGB 11.2 g/dL (13.5-17.5); Immature Grans % 0.4; Lymphocytes % 3.4; MCH 29.9 pg (27.0-33.0); MCHC 32.6 % (32.0-36.0); MCV 92 fL (80-95); MPV 10.8 fL (8.0-11.0); Monocytes % 7.3; Neutrophils % 88.5; Platelet Count 246 10^3/uL (130-400); RBC 3.74 10^6/uL (4.36-5.78); RDW-SD 47.6 fL; WBC 13.78 10^3/uL (4.4-10.8)
[2022-01-14 17:56] LABS: Absolute Monocyte Count 1.01 10^3/uL (0.1-0.8)
[2022-01-14 18:09] LABS: PTT Activated 25.1 sec (21.0-27.5); Prothrombin Time 9.9 sec (9.3-11.0)
[2022-01-14 18:25] LABS: ALT 12 U/L (16-63); AST 10 U/L (15-37); Alkaline Phosphatase 73 U/L (46-116); Anion Gap 6.2 mmol/L (3-11); BUN 22 mg/dL (7-18); Bilirubin, Total 0.3 mg/dL (0.2-1.0); CO2 33.8 mmol/L (21.0-32.0); CREATININE 1.4 mg/dL (0.70-1.30); Calcium 9.3 mg/dL (8.5-10.1); Chloride 98 mmol/L (98-107); Estimated GFR 50.49 (mL/min/1.73m2); Glucose 129 mg/dL (74-106); NT-proBNP 2629 pg/mL (<300); Potassium 3.9 mmol/L (3.5-5.1); Sodium 138 mmol/L (136-145); TSH (W/Ref FT4) 0.46 uIU/mL (0.36-3.74); Total Protein 6.8 g/dL (6.4-8.2); Troponin I < 50 ng/L (<or=60)
--- NOTE | 2022-01-14 18:30 | DI.RAD_ITS ---
Exam(s) XR PORTABLE CHEST AP EXAM: XR PORTABLE CHEST AP CLINICAL HISTORY: sob, cough, suspect LLL pneumonia TECHNIQUE: 2D digital imaging was performed of the chest. One image was obtained. An AP view was ob tained. COMPARISON: CR,XR XR PORTABLE CHEST AP from 04/22/2021 FINDINGS: There is poor inspiration. MEDIASTINUM: Normal. HEART: Normal. PULMONARY VASCULATURE: Normal. LUNGS: Question of a vague infiltrate in the retrocardiac region in the left lung base. PLEURAL SPACE: No pleural effusion or pneumothorax. BONE:Within normal limits for the patient's age. Sternotomy wires. OTHER FINDINGS:Normal. IMPRESSION: Possible left basilar infiltrate. Atelectasis versus pneumonia. DATA REPOSITORY: RADIATION DOSE DELIVERED:
[2022-01-14 18:38] LABS: COVID-19 PCR Negative (Negative); Influenza A PCR Negative (Negative); Influenza B PCR Negative (Negative); RSV PCR Negative (Negative)
[2022-01-14 18:39] LABS: Source Nasopharynx
--- NOTE | 2022-01-14 18:39 | DI.VRAD_ITS ---
PROCEDURE INFORMATION: Exam: XR Chest Exam date and time: 01/14/2022 6:09 PM Age: 81 years old Clinical indication: Patient HX: Cough, SOB, suspect lll pneumonia TECHNIQUE: Imaging protocol: Radiologic exam of the chest. Views: 1 view. COMPARISON: XR PORTABLE CHEST AP 04/22/2021 1:25 AM FINDINGS: Lungs: Chronic interstitial prominence. Question vague left lower lobe opacity Pleural spaces: No pleural effusion. No pneumothorax. Heart/Mediastinum: Grossly stable. Bones/joints: Grossly stable. IMPRESSION: Question vague left lower lobe opacity which may represent subsegmental atelectasis versus developing pneumonia Dictated and Authenticated by: Scott Caban MD. Ordering:ZENIA Morales MD
[2022-01-14 19:28] LABS: Bilirubin Negative (Negative); Blood Negative (Negative); Clarity Clear (Clear); Glucose Negative (Negative); Ketones Negative (Negative); Leukocyte Esterase Negative (Negative); Nitrite Negative (Negative); Specific Gravity 1.015 (1.005-1.025); Urobilinogen 0.2 EU/dL (Up TO 0.2); pH 7.5 (5-8)
[2022-01-14] MEDS: cefTRIAXone 2 GM/50 ML BAG IVPB (19:37)
--- NOTE | 2022-01-14 19:53 | HPE_ITS ---
Date of service: 01/14/22 Time of Service: 19:54 Assessment and Plan Assessment and plan (1) Pneumonia: Start date: 01/14/22 Status: Acute Assessment and plan: This is an 81-year-old gentleman with cough and dyspnea presenting to the ED with new onset hypoxemia and found to have pneumonia. He was started on Rocephin with doxycycline and aggressive respiratory treatment with O2 supplementation. He will continue his respiratory treatments as per outpatient. Consider steroids but this may exacerbate his diabetes. He is a full code. (2) Hypoxemia: Start date: 01/14/22 Status: Acute Assessment and plan: O2 supplementation and consider home O2 if patient qualifies. He usually is not on oxygen at home. (3) Type 2 diabetes mellitus with diabetic neuropathy, unspecified: Status: Chronic Assessment and plan: Monitor glucometers and cover with short acting insulin if needed. (4) Ischemic cardiomyopathy: Status: Chronic Assessment and plan: Continue outpatient medical therapy and monitor for exacerbation during stress with acute pneumonia and hypoxemia. Patient is a full code. History of Present Illness History of Present Illness Chief Complaint: Cough and shortness of breath Narrative: This is an 81-year-old male patient lives alone with a history of COPD, schizophrenia and status post CABG currently on Plavix who presented to the ED with increasing shortness of breath. He fell at home and could not get up on his own. He was seen by EMS and found to be relatively hypoxic with O2 applied and patient becoming less hypoxic with pulse oximeter in the mid 90% range. He was brought to ED for evaluation found to have a possible pneumonia by chest x- ray and was hypoxic which is new onset with ambulation in the ED resulting in to assist to get back to bed and severe hypoxemia with pulse ox of are in the 80% range. He was started on doxycycline and Rocephin and hospitalized for pneumonia. This is new onset hypoxemia as well. Patient has had a cough with dyspnea prior to the onset of this acute issue with weakness and unable to get up. He was exposed to COVID-19 but is not COVID-positive. He denies any fever or chest pain with a history of heart disease. Patient does live alone as stated and would not do well at home alone at this time. He is a full code. Review of Systems Narrative: 13 point review of systems otherwise unrevealing or stable. [facility] All Active Problems (Updated 01/16/22 @ 21:37 by Bro Jennings) GERD (gastroesophageal reflux disease) (Chronic) DVT prophylaxis (Acute) Discharge planning issues (Acute) Pneumonia (Acute) Hypoxemia (Acute) Anemia (Chronic) 2021-chronic, mild, history of iron deficiency Type 2 diabetes mellitus with diabetic neuropathy, unspecified (Chronic) Ischemic cardiomyopathy (Chronic) Palliative care patient (Acute) Diabetic foot ulcer (Acute) 08/2021-1:00, longstanding superficial ulceration right lateral malleolus Psoriasis (Chronic) Hematuria (Acute) Total urinary incontinence (Acute 12/02/07) Right leg claudication (Acute 09/06/14) Peripheral neuralgia (Acute 12/02/07) 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 NSTEMI 06/07. EF 40% Threatening behavior (Active 10/23/12) Medical History Anemia (03/11/12) Chronic obstructive lung disease (12/02/07) Coronary atherosclerosis of [place] coronary vessel (12/02/07) s/p CABG 2004 with diminished ejection fraction. Diabetes mellitus periphreal neuropathy of feet Ischemic cardiomyopathy Peripheral vascular disease (12/02/07) bilateral leg claudication. Wants no intervention Schizophrenia (10/19/13) Periods of severe hypomania and agitation Smoker Surgical History Appendectomy Cholecystectomy Colonoscopy - MAC 05/14/12 Coronary Artery Bypass [place] (CABG) 2004 HERNIA REPAIR RIGHT Family History Mother No problems noted. Father Heart disease Brother No problems noted. Social History Smoking/Tobacco Use Status: Current every day Tobacco Type: cigarettes Tobacco: How many years used: 55 Quit status: not considering quitting Counseling given: patient declined Smoking risk assessment performed?: Yes Alcohol Intake: never Drug use: Never Substance use type: does not use Caregiver/Support person: No Household members: none Pets and animals: No Sexually active: No Do you think of yourself as: straight/heterosexual Current gender identity: male What is your relationship status?: How often do you talk on the phone with friends or family?: three or more times per week How often do you attend religion or christianity services?: decline to answer Do you belong to any clubs or organized social groups?: yes Panel score (0-1 are the most socially isolated patients): 2 What type of physical activity do you participate in: none and additional Details: only walks in home. 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 Do you feel safe at home: Yes Do you feel safe in your relationship?: Yes Meds Allergies and Home Medications Allergies Allergy/AdvReac Type Severity Reaction Status Date / Time meperidine HCl [From Demerol] Allergy Unknown Verified 01/14/22 21:29 Home Medications Medication Instructions Recorded Confirmed Type blood-glucose meter #1 ea 05/18/14 01/02/22 History blood-glucose meter ([facility] ##1 06/14/14 01/02/22 History UltraMini kit) clozapine 100 mg tablet 100 mg PO QAM AND QHS 11/12/18 01/14/22 History clozapine 25 mg tablet 50 mg PO HS 11/12/18 01/14/22 History divalproex 250 mg tablet,delayed 1,000 mg PO HS 06/14/19 01/14/22 History release lancets 28 gauge #100 ea 04/10/20 01/02/22 Rx albuterol sulfate 90 mcg/actuation 2 puff inhalation QID PRN PRN #18 04/24/21 01/14/22 Rx aerosol inhaler grams budesonide-formoterol HFA 80 2 puff inhalation BID #1 g 05/11/21 01/14/22 Rx mcg-4.5 mcg/actuation aerosol inhaler (Symbicort) aspirin 81 mg tablet,delayed 81 mg PO DAILY #90 tabs 05/15/21 01/14/22 Rx release (Ecotrin Low Strength) metformin 500 mg tablet 500 mg PO BID #180 tab-caps 06/11/21 01/14/22 Rx clopidogrel 75 mg tablet 75 mg PO DAILY #90 tabs 07/03/21 01/14/22 Rx potassium chloride 10 mEq 10 meq PO DAILY 07/03/21 01/14/22 History capsule,extended release tamsulosin 0.4 mg capsule (Flomax) 0.4 mg PO DAILY #90 caps 07/03/21 01/14/22 Rx metoprolol succinate 50 mg 50 mg PO DAILY #90 tabs 08/03/21 01/14/22 Rx tablet,extended release 24 hr multivitamin 1 tab PO DAILY #90 tab-caps 08/03/21 01/14/22 Rx blood sugar diagnostic (Blood #100 strips 08/16/21 01/02/22 Rx Glucose Test strips) lancets (OneTouch UltraSoft #100 ea 08/16/21 01/02/22 Rx Lancets) blood sugar diagnostic (OneTouch #100 strips 08/17/21 01/02/22 Rx Ultra Test strips) sacubitril 49 mg-valsartan 51 mg 1 tab PO BID #180 tabs 08/30/21 01/14/22 Rx tablet (Entresto) ferrous sulfate 325 mg (65 mg See Rx Instructions .Route 09/28/21 01/14/22 Rx iron) tablet .COMPLEX #28 tabs docusate sodium 100 mg capsule 200 mg PO BID #360 caps 10/24/21 01/14/22 Rx (Colace) acetaminophen 500 mg tablet 1,000 mg PO Q6H PRN #360 tab-caps 10/29/21 01/14/22 Rx (Acetaminophen Extra Strength) food supplemt, lactose-reduced See Rx Instructions PO .COMPLEX 11/10/21 01/14/22 Rx (Ensure oral liquid) CHOCOLATE ONLY #5,688 mL nitroglycerin 0.4 mg sublingual 0.4 mg sublingual Q5M PRN chest 11/12/21 01/14/22 Rx tablet pain #20 tabs furosemide 20 mg tablet (Lasix) 40 mg PO BID #360 tabs 12/18/21 01/14/22 Rx atorvastatin 80 mg tablet 80 mg PO HS 01/14/22 01/14/22 History pantoprazole 40 mg tablet,delayed 40 mg PO DAILY #90 tab-caps 01/15/22 Rx release Exam Narrative Exam Narrative: General: Patient appears appropriate for age, alert and oriented at least to person and place and in no acute distress. He is more comfortable with oxygen therapy and at bedrest. HEENT: Normocephalic, eyes with pupils equal and reactive light symmetrically, extraocular movement tact and sclera anicteric. Oropharynx with dry mucosa. Neck: Supple without JVD. Back: Stooped posture without CVA tenderness. Lungs: Fair aeration with bronchovesicular breath sound diffusely. Occasional coarse crackles left lower lung [place]. No increased expiratory phase or expiratory wheeze. Abdomen: Soft to palpation and nontender with no guarding or rebound. No palpable hepatosplenomegaly. Genitalia/rectal: Exam deferred. Extremities: Without clubbing, cyanosis or grossly pitting edema. Fair capillary refill. Neuro: Cranial nerves II through XII gross intact, no focalizing motor deficits. Psych: Flattened affect with normal mood. No abnormal thought processes during exam. Remote memory intact for recent memory less intact. Results Imaging Imaging Studies: Exam: XR Chest Exam date and time: 01/14/2022 6:09 PM Age: 81 years old Clinical indication: Patient HX: Cough, SOB, suspect lll pneumonia TECHNIQUE: Imaging protocol: Radiologic exam of the chest. Views: 1 view. COMPARISON: XR PORTABLE CHEST AP 04/22/2021 1:25 AM FINDINGS: Lungs:? Chronic interstitial prominence.? Question vague left lower lobe opacity Pleural spaces: No pleural effusion. No pneumothorax. Heart/Mediastinum:? Grossly stable. Bones/joints:? Grossly stable. IMPRESSION: Question vague left lower lobe opacity which may represent subsegmental atelectasis versus developing pneumonia Labs Result diagrams: 01/15/22 07:00 01/15/22 07:00 Labs: Laboratory Results - last 24 hr 01/14/22 01/14/22 01/14/22 17:45 17:45 17:45 WBC 13.78 H RBC 3.74 L Hgb 11.2 L Hct 34.4 L MCV 92 MCH 29.9 MCHC 32.6 RDW 14.0 Plt Count 246 MPV 10.8 Immature Gran % 0.4 Neutrophils % 88.5 Lymphocytes % 3.4 Monocytes % 7.3 Eosinophils % 0.1 Basophils % 0.3 Nucleated RBC % 0.0 Absolute Neutrophils 12.20 H Absolute Lymphocytes 0.47 L Absolute Monocytes 1.01 H Absolute Eosinophils 0.01 Absolute Basophils 0.04 PT INR APTT VBG pH VBG pCO2 VBG pO2 VBG HCO3 VBG Total CO2 VBG O2 Saturation VBG Base Excess Sodium 138 Potassium 3.9 Chloride 98 Carbon Dioxide 33.8 H Anion Gap 6.2 BUN 22 H Creatinine 1.4 H Est GFR (CKD-EPI 2020) 50.49 Glucose 129 H Calcium 9.3 Total Bilirubin 0.3 AST 10 L ALT 12 L Alkaline Phosphatase 73 Troponin I < 50 NT-Pro-B Natriuret Pep 2629 H Total Protein 6.8 Albumin 3.0 L TSH 0.46 Urine Color Urine Clarity Urine pH Ur Specific [place] Urine Protein Urine Ketones Urine Blood Urine Nitrite Urine Bilirubin Urine Urobilinogen Ur Leukocyte Esterase Urine Glucose COVID-19 Source Nasopharynx SARS-CoV-2 (PCR) Negative Influenza Type A (PCR) Negative Influenza Type B (PCR) Negative RSV (PCR) Negative 01/14/22 01/14/22 01/14/22 17:45 17:45 19:14 WBC RBC Hgb Hct MCV MCH MCHC RDW Plt Count MPV Immature Gran % Neutrophils % Lymphocytes % Monocytes % Eosinophils % Basophils % Nucleated RBC % Absolute Neutrophils Absolute Lymphocytes Absolute Monocytes Absolute Eosinophils Absolute Basophils PT 9.9 INR 1.0 APTT 25.1 VBG pH 7.46 H VBG pCO2 48 VBG pO2 44 VBG HCO3 34 H VBG Total CO2 31 H VBG O2 Saturation 80 VBG Base Excess 10 H Sodium Potassium Chloride Carbon Dioxide Anion Gap BUN Creatinine Est GFR (CKD-EPI 2020) Glucose Calcium Total Bilirubin AST ALT Alkaline Phosphatase Troponin I NT-Pro-B Natriuret Pep Total Protein Albumin TSH Urine Color Yellow Urine Clarity Clear Urine pH 7.5 Ur Specific [place] 1.015 Urine Protein Negative Urine Ketones Negative Urine Blood Negative Urine Nitrite Negative Urine Bilirubin Negative Urine Urobilinogen 0.2 Ur Leukocyte Esterase Negative Urine Glucose Negative COVID-19 Source SARS-CoV-2 (PCR) Influenza Type A (PCR) Influenza Type B (PCR) RSV (PCR) Last Vital Signs Temp 37.2 C 01/14/22 17:11 Pulse 95 H 01/14/22 17:46 Resp 24 01/14/22 17:46 BP 110/50 L 01/14/22 19:38 Pulse Ox 92 01/14/22 19:38
[2022-01-14] MEDS: DOXYCYCLINE 100 MG in Normal Saline 100 ML IVPB (20:17)
[2022-01-14] MEDS: nitroGLYcerin 0.4 MG TAB SL (20:38)
[2022-01-14 21:11] LABS: Troponin I < 50 ng/L (<or=60)
[2022-01-14] MEDS: Enoxaparin 40 MG/0.4 ML SYR SC (23:09)
[2022-01-14] MEDS: Divalproex 250 MG TABEC 1000 MG PO (23:09)
[2022-01-14] MEDS: Metoprolol 12.5 MG TAB PO (23:09)
[2022-01-14] MEDS: traZODone 50 MG TAB PO (23:49)
[2022-01-15] VITALS (13 sets, daily range): BP systolic 105–122; BP diastolic 63–75; PULSE 66–93; RESP 15–20; TEMP 35.6–36.8; O2SAT 93–96
[2022-01-15] MEDS: Metoprolol 12.5 MG TAB PO ×3 (06:26→21:22)
[2022-01-15 07:27] LABS: Abs Immature Grans 0.04 10^3/uL (0.0-0.06); Absolute Basophil Count 0.06 10^3/uL (0.0-0.2); Absolute Lymphocyte Count 0.86 10^3/uL (1.2-3.4); Absolute Monocyte Count 0.65 10^3/uL (0.1-0.8); Absolute Neutrophil Count 9.61 10^3/uL (1.2-6.7); Basophils % 0.5; Eosinophils % 0.9; HCT 31.5 % (40.0-50.0); HGB 10.2 g/dL (13.5-17.5); Immature Grans % 0.4; Lymphocytes % 7.6; MCH 29.9 pg (27.0-33.0); MCHC 32.4 % (32.0-36.0); MCV 92 fL (80-95); MPV 10.9 fL (8.0-11.0); Monocytes % 5.7; Neutrophils % 84.9; Platelet Count 213 10^3/uL (130-400); RBC 3.41 10^6/uL (4.36-5.78); RDW 14.4 % (11.8-14.1); RDW-SD 48.7 fL; WBC 11.32 10^3/uL (4.4-10.8)
[2022-01-15 07:40] LABS: ALT 8 U/L (16-63); AST 10 U/L (15-37); Albumin 2.8 g/dL (3.4-5.0); Alkaline Phosphatase 72 U/L (46-116); Anion Gap 5.5 mmol/L (3-11); BUN 19 mg/dL (7-18); Bilirubin, Total 0.3 mg/dL (0.2-1.0); CO2 32.5 mmol/L (21.0-32.0); CREATININE 1.2 mg/dL (0.70-1.30); Calcium 8.9 mg/dL (8.5-10.1); Chloride 100 mmol/L (98-107); Estimated GFR 60.75 (mL/min/1.73m2); Glucose 134 mg/dL (74-106); Potassium 3.6 mmol/L (3.5-5.1); Sodium 138 mmol/L (136-145); Total Protein 6.5 g/dL (6.4-8.2)
[2022-01-15] MEDS: DOXYCYCLINE 100 MG in Normal Saline 100 ML IVPB ×2 (08:45→19:58)
[2022-01-15] MEDS: Aspirin E.C. 81 MG TABEC PO (08:46)
[2022-01-15] MEDS: Potassium Chloride 10 MEQ CAPCR PO (08:46)
[2022-01-15] MEDS: Pantoprazole 40 MG TABCR PO (08:46)
[2022-01-15] MEDS: Sacubitril/Valsartan 49 mg/51 mg TAB 1 EACH PO ×2 (08:46→19:56)
[2022-01-15] MEDS: Ferrous Sulfate 325 MG TAB PO (08:46)
[2022-01-15] MEDS: Furosemide 20 MG TAB 40 MG PO ×2 (08:46→16:42)
[2022-01-15] MEDS: Clopidogrel 75 MG TAB PO (08:46)
[2022-01-15] MEDS: Tamsulosin 0.4 MG CAPCR PO (08:46)
[2022-01-15] MEDS: Multivitamin TAB 1 TAB PO (08:46)
[2022-01-15] MEDS: Budesonide/Formoterol 80/4.5 6.9 GM 60 PUFF INH IH ×2 (08:48→19:56)
--- NOTE | 2022-01-15 09:39 | INITIAL_ITS ---
- If Service Date Differs Date of service: 01/15/22 Time of Service: 09:39 Care Management Initial Assess REASON FOR HOSPITALIZATION:: Pneumonia PAST MEDICAL HISTORY/PAST SURGICAL HISTORY:: All Active Problems . Pneumonia (Acute). Hypoxemia (Acute). Anemia (Chronic). 2021-chronic, mild, history of iron deficiency. Type 2 diabetes mellitus with diabetic neuropathy, unspecified (Acute). Ischemic cardiomyopathy (Acute). Palliative care patient (Acute). Diabetic foot ulcer (Acute). 08/2021-1:00, longstanding superficial ulceration right lateral malleolus. Psoriasis (Chronic). Hematuria (Acute). Total urinary incontinence (Acute 12/02/07). Right leg claudication (Acute 09/06/14). Peripheral neuralgia (Acute 12/02/07). 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 Non-compliance (Acute 10/19/13). Left leg claudication (Acute 09/06/14). Atherosclerosis of [place] coronary artery (Acute 12/02/07). 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 NSTEMI 06/07. EF 40%. Threatening behavior (Active 10/23/12). Medical History. Anemia (03/11/12). Chronic obstructive lung disease (12/02/07). Coronary atherosclerosis of [place] coronary vessel (12/02/07). 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 Diabetes mellitus. periphreal neuropathy of feet. Ischemic cardiomyopathy. Peripheral vascular disease (12/02/07). bilateral leg claudication. Wants no intervention. Schizophrenia (10/19/13). Periods of severe hypomania and agitation. Smoker. Surgical History . Appendectomy. Cholecystectomy. Colonoscopy - MAC. 05/14/12. Coronary Artery Bypass [place] (CABG). 2004. HERNIA REPAIR. RIGHT PREVIOUS FUNCTIONAL STATUS/SOCIAL/FAMILY SUPPORTS:: Santiago lives alone in a single family home in [place], [place]. He is and has three adult daughters living. A fourth daughter about 14 years ago. Santiago also fostered 2 teeneage brothers for 5-6 years. He remained close to one of them until his a couple of years ago. Two of his daughers live out of state but Jake, his daughter who lives locally, is supportive of him. Ryan also has supports from the PAPER PROCESSING MACHINE HELPER Program at [facility] and Home Health. CURRENT FUNCTIONAL STATUS:: Santiago was sitting up in bed when CM met with him. He was polite and agreeable to conversation. Santiago talked a lot about his family and some of the challenges they have faced. He had one daughter who committed suicide about 14 years ago and he still visits her grave and brings allred on Fridays. He also had a foster son who from alcohol a couple of years ago. 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 Santiago and his ex- have remained friends and are on good terms. ADVANCE DIRECTIVES:: KATIE Romero Has patient been provided with info about the portal/API?: Yes Did the patient sign up for the portal?: No CODE STATUS:: Full Code INSURANCE COVERAGE / FINANCIAL ISSUES:: Medicare. Medicaid CURRENT HOME/COMMUNITY SERVICES/EQUIPMENT:: Ryan has a rollator as well as a cane. He has Home Health nursing (every 3 weeks) and a Home Health aide who comes and cleans his home and washes his clothes every other week. His medications are delivered to him on Tuesdays by the PAPER PROCESSING MACHINE HELPER Program at [facility], and his PAPER PROCESSING MACHINE HELPER rn case mgr takes him on outings once a week. Ryan also has MOW and CFC Moderate needs PRIMARY CARE PHYSICIAN:: João Metz MD POTENTIAL DISCHARGE NEEDS:: Follow up appointment with PCP, resumption of HH, MOW, and [facility] services, and follow up plan of care. PATIENT/FAMILY EDUCATION NEEDS:: Review discharge instructions, limitations, medications, and follow up plan of care; discuss Ask Me Three and self management. TRANSPORTATION:: Via private vehicle with daughterJake. PLAN:: Ryan will likely be discharged home with a resumption of services when medically cleared by provider. He will follow up with his PCP and discharge plan of care as directed. He will be transported home by his daughter, Jake, via private vehicle when ready. CM will continue to support Ryan and any discharge planning needs.
[2022-01-15 09:58] LABS: C-Reactive Protein 18.23 mg/dL (0.0-0.3)
--- NOTE | 2022-01-15 11:03 | NUR.NOTE ---
Nursing Note: Patient has requested that all 4 bed rails be placed in the up position for safety
[2022-01-15 11:09] LABS: Procalcitonin 0.6 ng/mL
--- NOTE | 2022-01-15 17:16 | W.PM.PROGNOT ---
Date of Service Date of service: 01/15/22 Time of Service: 17:17 Assessment and Plan Assessment and plan (1) Pneumonia: Status: Acute Assessment and plan: LLL per xray, not coughing, temp 37.9 Doxycycline waiting for sensitivity (2) Hypoxemia: Status: Acute Assessment and plan: SPO2 RA >94% (3) GERD (gastroesophageal reflux disease): Status: Chronic Assessment and plan: Stable - continue pantoprazole (4) Type 2 diabetes mellitus with diabetic neuropathy, unspecified: Status: Acute Assessment and plan: Stable - continue home meds (5) Ischemic cardiomyopathy: Status: Acute Assessment and plan: Telemetry, daily weights Continue daily weights (6) DVT prophylaxis: Status: Acute Assessment and plan: Enoxaparin (7) Discharge planning issues: Status: Acute Assessment and plan: Home without services when stable. Subjective Subjective Patient reports: no new complaints and feels better; denies flatus, diarrhea, nausea or vomiting Exam Narrative Exam Narrative: 1.Const: Well-nourished, Well-developed, appearing stated age 2.Eyes: PERRL, no conjunctival injection, and symmetrical lids. 3.ENT: Atraumatic external nose and ears. Moist MM. Neck: Symmetric, trachea midline, No thyromegaly. 4.CVS: +S1/S2, No murmurs or gallops. Peripheral pulses 2+ and equal in all extremities. Brisk capillary refill in all extremities. 5.RESP: Unlabored respiratory effort, mild crackles in the left lower lung [place]. No wheezes. 6.GI: Soft, Nontender/Nondistended, No hepatosplenomegaly. No guarding or rebound. 7.MSK: Normocephalic/Atraumatic, Extremities w/o deformity or ttp No cyanosis or clubbing, Normal movement of all extremities, no peripheral edema 8.Skin: Warm, Dry. No rashes or lesions. 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 Sensation grossly intact, no focal neurologic deficits. 10.Psych: (AAO) x3. Appropriate mood and affect Objective Last Vital Signs Temp 36.5 C 01/15/22 16:05 Pulse 78 01/15/22 16:05 Resp 20 01/15/22 16:05 BP 111/69 01/15/22 16:05 Pulse Ox 96 01/15/22 16:05 Laboratory Results - last 24 hr 01/14/22 01/14/22 01/14/22 17:45 17:45 17:45 WBC 13.78 H RBC 3.74 L Hgb 11.2 L Hct 34.4 L MCV 92 MCH 29.9 MCHC 32.6 RDW 14.0 Plt Count 246 MPV 10.8 Immature Gran % 0.4 Neutrophils % 88.5 Lymphocytes % 3.4 Monocytes % 7.3 Eosinophils % 0.1 Basophils % 0.3 Nucleated RBC % 0.0 Absolute Neutrophils 12.20 H Absolute Lymphocytes 0.47 L Absolute Monocytes 1.01 H Absolute Eosinophils 0.01 Absolute Basophils 0.04 PT INR APTT VBG pH VBG pCO2 VBG pO2 VBG HCO3 VBG Total CO2 VBG O2 Saturation VBG Base Excess Sodium 138 Potassium 3.9 Chloride 98 Carbon Dioxide 33.8 H Anion Gap 6.2 BUN 22 H Creatinine 1.4 H Est GFR (CKD-EPI 2020) 50.49 Glucose 129 H Calcium 9.3 Magnesium Total Bilirubin 0.3 AST 10 L ALT 12 L Alkaline Phosphatase 73 Troponin I < 50 C-Reactive Protein NT-Pro-B Natriuret Pep 2629 H Total Protein 6.8 Albumin 3.0 L Procalcitonin TSH 0.46 Urine Color Urine Clarity Urine pH Ur Specific [place] Urine Protein Urine Ketones Urine Blood Urine Nitrite Urine Bilirubin Urine Urobilinogen Ur Leukocyte Esterase Urine Glucose COVID-19 Source Nasopharynx SARS-CoV-2 (PCR) Negative Influenza Type A (PCR) Negative Influenza Type B (PCR) Negative RSV (PCR) Negative Add-On Test Request 01/14/22 01/14/22 01/14/22 17:45 17:45 19:14 WBC RBC Hgb Hct MCV MCH MCHC RDW Plt Count MPV Immature Gran % Neutrophils % Lymphocytes % Monocytes % Eosinophils % Basophils % Nucleated RBC % Absolute Neutrophils Absolute Lymphocytes Absolute Monocytes Absolute Eosinophils Absolute Basophils PT 9.9 INR 1.0 APTT 25.1 VBG pH 7.46 H VBG pCO2 48 VBG pO2 44 VBG HCO3 34 H VBG Total CO2 31 H VBG O2 Saturation 80 VBG Base Excess 10 H Sodium Potassium Chloride Carbon Dioxide Anion Gap BUN Creatinine Est GFR (CKD-EPI 2020) Glucose Calcium Magnesium Total Bilirubin AST ALT Alkaline Phosphatase Troponin I C-Reactive Protein NT-Pro-B Natriuret Pep Total Protein Albumin Procalcitonin TSH Urine Color Yellow Urine Clarity Clear Urine pH 7.5 Ur Specific [place] 1.015 Urine Protein Negative Urine Ketones Negative Urine Blood Negative Urine Nitrite Negative Urine Bilirubin Negative Urine Urobilinogen 0.2 Ur Leukocyte Esterase Negative Urine Glucose Negative COVID-19 Source SARS-CoV-2 (PCR) Influenza Type A (PCR) Influenza Type B (PCR) RSV (PCR) Add-On Test Request 01/14/22 01/15/22 01/15/22 20:48 07:00 07:00 WBC 11.32 H RBC 3.41 L Hgb 10.2 L Hct 31.5 L MCV 92 MCH 29.9 MCHC 32.4 RDW 14.4 H Plt Count 213 MPV 10.9 Immature Gran % 0.4 Neutrophils % 84.9 Lymphocytes % 7.6 Monocytes % 5.7 Eosinophils % 0.9 Basophils % 0.5 Nucleated RBC % 0.0 Absolute Neutrophils 9.61 H Absolute Lymphocytes 0.86 L Absolute Monocytes 0.65 Absolute Eosinophils 0.10 Absolute Basophils 0.06 PT INR APTT VBG pH VBG pCO2 VBG pO2 VBG HCO3 VBG Total CO2 VBG O2 Saturation VBG Base Excess Sodium 138 Potassium 3.6 Chloride 100 Carbon Dioxide 32.5 H Anion Gap 5.5 BUN 19 H Creatinine 1.2 Est GFR (CKD-EPI 2020) 60.75 Glucose 134 H Calcium 8.9 Magnesium 2.0 Total Bilirubin 0.3 AST 10 L ALT 8 L Alkaline Phosphatase 72 Troponin I < 50 C-Reactive Protein NT-Pro-B Natriuret Pep Total Protein 6.5 Albumin 2.8 L Procalcitonin TSH Urine Color Urine Clarity Urine pH Ur Specific [place] Urine Protein Urine Ketones Urine Blood Urine Nitrite Urine Bilirubin Urine Urobilinogen Ur Leukocyte Esterase Urine Glucose COVID-19 Source SARS-CoV-2 (PCR) Influenza Type A (PCR) Influenza Type B (PCR) RSV (PCR) Add-On Test Request 01/15/22 01/15/22 01/15/22 07:00 07:00 07:10 WBC RBC Hgb Hct MCV MCH MCHC RDW Plt Count MPV Immature Gran % Neutrophils % Lymphocytes % Monocytes % Eosinophils % Basophils % Nucleated RBC % Absolute Neutrophils Absolute Lymphocytes Absolute Monocytes Absolute Eosinophils Absolute Basophils PT INR APTT VBG pH VBG pCO2 VBG pO2 VBG HCO3 VBG Total CO2 VBG O2 Saturation VBG Base Excess Sodium Potassium Chloride Carbon Dioxide Anion Gap BUN Creatinine Est GFR (CKD-EPI 2020) Glucose Calcium Magnesium Total Bilirubin AST ALT Alkaline Phosphatase Troponin I C-Reactive Protein 18.23 H NT-Pro-B Natriuret Pep Total Protein Albumin Procalcitonin 0.6 TSH Urine Color Urine Clarity Urine pH Ur Specific [place] Urine Protein Urine Ketones Urine Blood Urine Nitrite Urine Bilirubin Urine Urobilinogen Ur Leukocyte Esterase Urine Glucose COVID-19 Source SARS-CoV-2 (PCR) Influenza Type A (PCR) Influenza Type B (PCR) RSV (PCR) Add-On Test Request TNP
[2022-01-15] MEDS: cefTRIAXone 1 GM/50 ML BAG IVPB (17:39)
[2022-01-15] MEDS: Rosuvastatin 5 MG TAB PO (19:56)
[2022-01-15] MEDS: Enoxaparin 40 MG/0.4 ML SYR SC (21:22)
[2022-01-15] MEDS: traZODone 50 MG TAB PO (21:22)
[2022-01-15] MEDS: Divalproex 250 MG TABEC 1000 MG PO (21:22)
[2022-01-16] VITALS (11 sets, daily range): BP systolic 106–114; BP diastolic 63–72; PULSE 78–94; RESP 16–19; TEMP 35.8–36.9; O2SAT 91–95
[2022-01-16] MEDS: Metoprolol 12.5 MG TAB PO ×3 (06:06→21:01)
[2022-01-16] MEDS: DOXYCYCLINE 100 MG in Normal Saline 100 ML IVPB ×2 (08:05→20:50)
[2022-01-16] MEDS: Furosemide 20 MG TAB 40 MG PO ×2 (08:06→17:07)
[2022-01-16] MEDS: Multivitamin TAB 1 TAB PO (08:06)
[2022-01-16] MEDS: Ferrous Sulfate 325 MG TAB PO (08:06)
[2022-01-16] MEDS: Pantoprazole 40 MG TABCR PO (08:06)
[2022-01-16] MEDS: Potassium Chloride 10 MEQ CAPCR PO (08:06)
[2022-01-16] MEDS: Tamsulosin 0.4 MG CAPCR PO (08:06)
[2022-01-16] MEDS: Sacubitril/Valsartan 49 mg/51 mg TAB 1 EACH PO ×2 (08:06→20:56)
[2022-01-16] MEDS: Clopidogrel 75 MG TAB PO (08:06)
[2022-01-16] MEDS: Aspirin E.C. 81 MG TABEC PO (08:07)
[2022-01-16] MEDS: Budesonide/Formoterol 80/4.5 6.9 GM 60 PUFF INH IH ×2 (08:30→20:48)
--- NOTE | 2022-01-16 09:33 | W.PM.PROGNOT ---
Date of Service Date of service: 01/16/22 Time of Service: 15:37 Assessment and Plan Assessment and plan (1) Pneumonia: Status: Acute Assessment and plan: LLL per xray, not coughing, temp 37.9 Doxycycline waiting for sensitivity (2) Hypoxemia: Status: Acute Assessment and plan: SPO2 RA >94% (3) GERD (gastroesophageal reflux disease): Status: Chronic Assessment and plan: Stable - continue pantoprazole (4) Type 2 diabetes mellitus with diabetic neuropathy, unspecified: Status: Acute Assessment and plan: Stable - continue home meds (5) Ischemic cardiomyopathy: Status: Acute Assessment and plan: Telemetry, daily weights Continue daily weights (6) DVT prophylaxis: Status: Acute Assessment and plan: Enoxaparin (7) Discharge planning issues: Status: Acute Assessment and plan: Home without services when stable. Subjective Subjective Patient reports: no new complaints, tolerating a regular diet, voiding w/o difficulty, no bowel movement, bowel movement and afebrile; denies diarrhea, nausea or vomiting Exam Narrative Exam Narrative: 1.Const: Well-nourished, Well-developed, appearing stated age 2.Eyes: PERRL, no conjunctival injection, and symmetrical lids. 3.ENT: Atraumatic external nose and ears. Moist MM. Neck: Symmetric, trachea midline, No thyromegaly. 4.CVS: +S1/S2, No murmurs or gallops. Peripheral pulses 2+ and equal in all extremities. Brisk capillary refill in all extremities. 5.RESP: Unlabored respiratory effort, mild crackles in the left lower lung pierson. No wheezes. 6.GI: Soft, Nontender/Nondistended, No hepatosplenomegaly. No guarding or rebound. 7.MSK: Normocephalic/Atraumatic, Extremities w/o deformity or ttp No cyanosis or clubbing, Normal movement of all extremities, no peripheral edema 8.Skin: Warm, Dry. No rashes or lesions. 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 Sensation grossly intact, no focal neurologic deficits. 10.Psych: (AAO) x3. Appropriate mood and affect Objective Last Vital Signs Temp 35.8 C L 01/16/22 08:00 Pulse 84 01/16/22 08:00 Resp 16 01/16/22 08:00 BP 106/63 01/16/22 08:00 Pulse Ox 91 L 01/16/22 08:00 Laboratory Results - last 24 hr 01/15/22 01/15/22 01/15/22 07:00 07:00 07:10 C-Reactive Protein 18.23 H Procalcitonin 0.6 Add-On Test Request TNP
--- NOTE | 2022-01-16 10:23 | PDOC.CMPRO ---
- If Service Date Differs Date of service: 01/16/22 Time of Service: 10:23 Care Management Progress Note S/O:Santiago was sitting up in bed when CM met with him. He stated that he is really tired today. He shared that he has not been sleeping well in the hospital. Santiago also stated that he feels more short of breath this afternoon, although his O2 saturation was 91% this morning and 95% this afternoon on room air. Santiago remains afebrile and his WBC is down to 11.32 from 13.78 yesterday. A: Santiago is an 81 year old man admitted on 01/14/22 with pneumonia and hypoxia. P:Ryan will likely be discharged home with a resumption of services when medically cleared by provider. He will follow up with his PCP and discharge plan of care as directed. He will be transported home by his daughter, Jake, via private vehicle when ready. CM will continue to support Ryan and any discharge planning needs.
[2022-01-16] MEDS: Insulin Aspart 300 UNITS/3 ML PEN SC (12:17)
[2022-01-16] MEDS: Bacitracin 1 PACKET TP (14:23)
[2022-01-16] MEDS: cefTRIAXone 1 GM/50 ML BAG IVPB (17:07)
[2022-01-16] MEDS: Rosuvastatin 5 MG TAB PO (20:56)
[2022-01-16] MEDS: Enoxaparin 40 MG/0.4 ML SYR SC (20:59)
[2022-01-16] MEDS: Divalproex 250 MG TABEC 1000 MG PO (20:59)
[2022-01-16] MEDS: traZODone 50 MG TAB PO (21:15)
[2022-01-17] VITALS (9 sets, daily range): BP systolic 102–126; BP diastolic 64–78; PULSE 78–97; RESP 12–20; TEMP 35.8–36.9; O2SAT 92–98
[2022-01-17] MEDS: Metoprolol 12.5 MG TAB PO ×3 (05:30→21:41)
[2022-01-17 05:53] LABS: Abs Immature Grans 0.03 10^3/uL (0.0-0.06); Absolute Basophil Count 0.07 10^3/uL (0.0-0.2); Absolute Eosinophil Count 0.29 10^3/uL (0.0-0.7); Absolute Lymphocyte Count 1.04 10^3/uL (1.2-3.4); Absolute Monocyte Count 0.65 10^3/uL (0.1-0.8); Absolute Neutrophil Count 5.46 10^3/uL (1.2-6.7); Basophils % 0.9; Eosinophils % 3.8; HCT 34.9 % (40.0-50.0); HGB 11.1 g/dL (13.5-17.5); Immature Grans % 0.4; Lymphocytes % 13.8; MCH 29.8 pg (27.0-33.0); MCHC 31.8 % (32.0-36.0); MCV 94 fL (80-95); Monocytes % 8.6; Neutrophils % 72.5; Platelet Count 226 10^3/uL (130-400); RBC 3.72 10^6/uL (4.36-5.78); RDW 13.9 % (11.8-14.1); WBC 7.54 10^3/uL (4.4-10.8)
[2022-01-17 06:36] LABS: C-Reactive Protein 8.95 mg/dL (0.0-0.3); Magnesium 2.1 mg/dL (1.8-2.4)
[2022-01-17 06:47] LABS: Anion Gap 7.5 mmol/L (3-11); BUN 22 mg/dL (7-18); CO2 31.5 mmol/L (21.0-32.0); CREATININE 1.3 mg/dL (0.70-1.30); Chloride 102 mmol/L (98-107); Estimated GFR 55.19 (mL/min/1.73m2); Glucose 127 mg/dL (74-106); Potassium 3.7 mmol/L (3.5-5.1); Sodium 141 mmol/L (136-145)
[2022-01-17] MEDS: Potassium Chloride 10 MEQ CAPCR PO (08:43)
[2022-01-17] MEDS: Pantoprazole 40 MG TABCR PO (08:43)
[2022-01-17] MEDS: Sacubitril/Valsartan 49 mg/51 mg TAB 1 EACH PO ×2 (08:43→20:58)
[2022-01-17] MEDS: Multivitamin TAB 1 TAB PO (08:43)
[2022-01-17] MEDS: Ferrous Sulfate 325 MG TAB PO (08:43)
[2022-01-17] MEDS: Tamsulosin 0.4 MG CAPCR PO (08:43)
[2022-01-17] MEDS: Clopidogrel 75 MG TAB PO (08:43)
[2022-01-17] MEDS: Aspirin E.C. 81 MG TABEC PO (08:44)
[2022-01-17] MEDS: Furosemide 20 MG TAB 40 MG PO ×2 (08:44→15:40)
[2022-01-17] MEDS: DOXYCYCLINE 100 MG in Normal Saline 100 ML IVPB (08:44)
[2022-01-17] MEDS: Budesonide/Formoterol 80/4.5 6.9 GM 60 PUFF INH IH ×2 (08:59→21:41)
[2022-01-17] MEDS: Normal Saline Flush 10 ML SYR (10:16)
[2022-01-17] MEDS: Normal Saline Flush 10 ML SYR IVP ×2 (10:18→17:28)
--- NOTE | 2022-01-17 11:15 | W.PM.PROGNOT ---
Date of Service Date of service: 01/17/22 Time of Service: 11:15 Assessment and Plan Assessment and plan (1) Pneumonia: Status: Acute Assessment and plan: LLL per xray, no oxygen requirements continue doxycycline and ceftriaxone day 3/5, step down to oral tomorrow. continue respiratory inhalers (2) Hypoxemia: Status: Resolved Assessment and plan: SPO2 RA >94% (3) GERD (gastroesophageal reflux disease): Status: Chronic Assessment and plan: Stable - continue pantoprazole (4) Type 2 diabetes mellitus with diabetic neuropathy, unspecified: Status: Chronic Assessment and plan: Stable - continue home meds check blood sugars ac/hs with coverage A1C 6.22 Nov 2021 (5) Ischemic cardiomyopathy: Status: Chronic Assessment and plan: stable Telemetry, daily weights Continue daily weights (6) DVT prophylaxis: Status: Acute Assessment and plan: Enoxaparin (7) Discharge planning issues: Status: Acute Assessment and plan: Home with home health services, likely tomorrow. will have PT evaluate for discharge planning discussed with DR Muñoz. Subjective Subjective Patient reports: no new complaints, feels better, tolerating liquids well, tolerating a regular diet and afebrile Interval history since last seen: no oxygen requirements, feeling better. Exam Const General: cooperative, comfortable, no acute distress and frail appearing Nutritional Appearance: average body habitus Orientation: alert, awake and oriented x3 HENMT Head: normal to inspection, normocephalic and atraumatic Mouth: oral mucosae normal Resp Effort & Inspection: normal respiratory effort Auscultation: diminished lung sounds, no rales and no wheezes Cardio Rate: regular rate Rhythm: regular rhythm GI Inspection: normal to inspection Palpation: soft Auscultation: normal bowel sounds Skin General skin exam: no rashes or lesions noted Neuro General: patient alert, patient awake, patient oriented x3 and no focal motor deficits Cognition: normal cognition Speech: speech normal Gait: normal gait Motor: muscle tone normal throughout Extrem General: normal to inspection, full ROM and no pedal edema Objective Last Vital Signs Temp 35.9 C L 01/17/22 07:59 Pulse 78 01/17/22 07:59 Resp 17 01/17/22 07:59 BP 102/64 01/17/22 07:59 Pulse Ox 95 01/17/22 07:59 Laboratory Results - last 24 hr 01/17/22 01/17/22 01/17/22 05:24 05:24 05:24 WBC 7.54 RBC 3.72 L Hgb 11.1 L Hct 34.9 L MCV 94 MCH 29.8 MCHC 31.8 L RDW 13.9 Plt Count 226 MPV 11.0 Immature Gran % 0.4 Neutrophils % 72.5 Lymphocytes % 13.8 Monocytes % 8.6 Eosinophils % 3.8 Basophils % 0.9 Nucleated RBC % 0.0 Absolute Neutrophils 5.46 Absolute Lymphocytes 1.04 L Absolute Monocytes 0.65 Absolute Eosinophils 0.29 Absolute Basophils 0.07 Sodium 141 Potassium 3.7 Chloride 102 Carbon Dioxide 31.5 Anion Gap 7.5 BUN 22 H Creatinine 1.3 Est GFR (CKD-EPI 2020) 55.19 Glucose 127 H Calcium 9.0 Magnesium 2.1 C-Reactive Protein 8.95 H
[2022-01-17] MEDS: Insulin Aspart 300 UNITS/3 ML PEN SC (11:55)
--- NOTE | 2022-01-17 16:04 | PT.INIE ---
Date of service: 01/17/22 Time of Service: 15:30 PT Notes Visit Reasons: Pneumonia with Hypoxemia Inpatient Physical Therapy Evaluation Date: December Referring Doctor: Jenny Ledezma PT Orders: PT CONSULT Precautions: Standard Patient Profile/Admitting Diagnosis: Santiago is a an 81 year old male admitted on 01/14/22 secondary to pneumonia and hypoxia. PMHX: (Updated 01/16/22 @ 21:37 by Bro Jennings) GERD (gastroesophageal reflux disease) (Chronic) DVT prophylaxis (Acute) Discharge planning issues (Acute) Pneumonia (Acute) Hypoxemia (Acute) Anemia (Chronic) 2021-chronic, mild, history of iron deficiencyType 2 diabetes mellitus with diabetic neuropathy, unspecified (Chronic) Ischemic cardiomyopathy (Chronic) Palliative care patient (Acute) Diabetic foot ulcer (Acute) 08/2021-1:00, longstanding superficial ulceration right lateral malleolusPsoriasis (Chronic) Hematuria (Acute) Total urinary incontinence (Acute 12/02/07) Right leg claudication (Acute 09/06/14) Peripheral neuralgia (Acute 12/02/07) 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 NSTEMI 06/07.? EF 40% Threatening behavior (Active 10/23/12) Medical History Anemia (03/11/12) Chronic obstructive lung disease (12/02/07) Coronary atherosclerosis of [place] coronary vessel (12/02/07) s/p CABG 2004 with diminished ejection fraction. Diabetes mellitus periphreal neuropathy of feet Ischemic cardiomyopathy Peripheral vascular disease (12/02/07) bilateral leg claudication.? Wants no intervention Schizophrenia (10/19/13) Periods of severe hypomania and agitation Smoker Surgical History? Appendectomy Cholecystectomy Colonoscopy - MAC 05/14/oronary Artery Bypass [place] (CABG) 2005HERNIA REPAIR RIGHT Social History/Home Situation: Santiago lives alone in a private home. Has a ramp to enter. Utilizes a rollator walker for all ambulation except in his bathroom where his rollator won't fit. He has grab bars and utilizes his SPC in the bathroom for assistance. Does utilize a shower chair for bathing. Has a lifeline in place. Does receive Home Health services to assist with cleaning of his home. Santiago notes that he has a daughter, Jake that lives close by. Current Functional Limitations: decreased activity tolerance, general weakness Equipment Owned/DME: Rollator, SPC Subjective: Santiago notes that he is tired. He has not been sleeping well since he has been in the hospital. He states overall is feeling better. Has been up sitting in his chair x2 today. Objective: General Observation: telemetry, IV access R UE Mental Status: Alert and oriented x3 Pain: Declines any pain Vital Signs: O2 saturation 96% on room air ROM: Right Upper Extremity: ? Shoulder Flexion WFL. Shoulder abduction WFL. Elbow flexion WFL. Wrist flexion WFL. Functional opening and closing of hand WFL. Left Upper Extremity:? Shoulder Flexion WFL. Shoulder abduction WFL. Elbow flexion WFL. Wrist flexion WFL. Functional opening and closing of hand WFL. Right Lower Extremity: Hip flexion WFL. Hip abduction WFL. Knee flexion WFL. Ankle dorsiflexion WFL. Ankle plantarflexion WFL. Left Lower Extremity: Hip flexion WFL. Hip abduction WFL. Knee flexion WFL. Ankle dorsiflexion WFL. Ankle plantarflexion WFL. Strength: Right Upper Extremity: Shoulder flexors 4/5. Shoulder abductors 4/5. Elbow flexors 5/5. Elbow extensors 4/5. Specimen Transporter strong. Left Upper Extremity: Shoulder flexors 4/5. Shoulder abductors 4/5. Elbow flexors 5/5. Elbow extensors 4/5. Specimen Transporter strong. Right Lower Extremity: Hip flexors 4-/5. Hip abductors 4/5. Knee flexors 5/5. Knee extensors 4/5. Ankle dorsiflexors 4/5. Ankle plantarflexors 5/5. Left Lower Extremity: Hip flexors 4-/5. Hip abductors 4/5. Knee flexors 5/5. Knee extensors 4/5. Ankle dorsiflexors 4/5. Ankle plantarflexors 5/5. Bed Mobility/Transfers: Rolling independent Supine to sit independent Sit to supine independent Sit to stand CGA Stand to sit CGA Bed to chair CGA with rollator Chair to bed CGA with rollator Gait: Instructed patient with level surface ambulation of 50 feet requiring supervision assist. Cristel decreased.?Forwardly flexed with increased thoracic kyphosis. 96% on room air O2 saturation. Mild SOB noted post. Balance: Static Sitting: Normal Dynamic Sitting: Normal Static Standing: Fair Dynamic Standing: Fair Special Tests: Mobility Limitations Standardized Measure [facility] AM-PAC 6 clicks Basic Mobility Inpatient Short Form: Raw Score: ? 22? CMS Score: 21% deficit? ? ? Informed Consent/Education:? Patient was instructed in purpose of PT consult and plan of care. Agreeable to proceed with established PT POC to achieve personal goals. Assessment: Patient is a 81 year old male referred to physical therapy services with the diagnosis of pneumonia and hypoxia. Patient presents with clinical signs and symptoms consistent with diagnosis, as demonstrated by the following impairment level findings: decreased activity tolerance, with decreased functional endurance and diminished balance. Impairments are contributing to the following functional limitations: generalized LE weakness due to fatigue, diminished balance. Requires use of rollator for safety during ambulation. Patient is assessed as a 21819 moderate complexity based on the following: History: 81-year-old male with past medical history as indicated above Examination: As above Presentation: Stable Decision Makin moderate complexity Goals: Goals X1 week 1. Sit-Stand independent 2. Stand-Sit independent 3. Bed-Chair independent with use of rollator 4. Chair-Bed independent with use of rollator 5. Gait 100 ft with use of rollator 6. Improved static standing balance to good Plan of Care/Treatment Plan: 1-2x/day, 7 days/week x 1 week. Plan of care has been reviewed with the FUNDING COORDINATOR providing the service under Physical Therapy direction. Initiate Physical Therapy intervention for strengthening, bed mobility, transfers, gait, stairs, balance training, use of assistive device. DISCHARGE RECOMMENDATIONS:Home with services.? Home when medically cleared by hospitalist.? May benefit from home health PT and OT to ensure safety with all ADL performance at home. TREATMENT CODE/TIME: 64119 x 25 minutes beginning at 15:30 PM. LARRY Mays [facility] Disclaimer: This note was created using [employer] voice recognition software. It was reviewed for major content. However, there may be multiple small discrepancies and errors due to the voice recognition aspects of the software.
--- NOTE | 2022-01-17 16:09 | PDOC.CMPRO ---
- If Service Date Differs Date of service: 01/17/22 Time of Service: 16:09 Care Management Progress Note S/O:Santiago was sleeping each time CM attempted to meet with him today. He has been out of bed ambulating with a walker with minimal assist. He had a PT evaluation today but recommendations and findings are not available in the record yet. Per provider, Santiago is feeling better today and is not requiring any oxygen. His O2 saturation levels have been in the mid-nineties on room air. Santiago remains afebrile, his WBC is down to normal (7.54) and his CRP is down to 8.95 form 18. It is likely Santiago will be able to go home tomorrow if he continues to feel well. A: Santiago is an 81 year old man admitted on 01/14/22 with pneumonia and hypoxia. P:Santiago will likely be discharged home with a resumption of his current services and an increase in home health nursing support. He will follow up with his PCP and discharge plan of care as directed. Santiago will be transported home by his daughter, Jake, via private vehicle when ready. CM will continue to support Santiago and any discharge planning needs.
[2022-01-17] MEDS: cefTRIAXone 1 GM/50 ML BAG IVPB (17:27)
[2022-01-17] MEDS: Doxycycline Hyclate 100 MG CAP PO (20:58)
[2022-01-17] MEDS: Divalproex 250 MG TABEC 1000 MG PO (20:58)
[2022-01-17] MEDS: Rosuvastatin 5 MG TAB PO (20:58)
[2022-01-17] MEDS: Enoxaparin 40 MG/0.4 ML SYR SC (21:05)
[2022-01-17] MEDS: traZODone 50 MG TAB 25 MG PO (22:01)
[2022-01-18] VITALS (10 sets, daily range): BP systolic 98–115; BP diastolic 61–77; PULSE 79–92; RESP 14–18; TEMP 35.3–36.8; O2SAT 94–95
[2022-01-18] MEDS: Metoprolol 12.5 MG TAB PO ×2 (05:37→21:17)
[2022-01-18] MEDS: Sacubitril/Valsartan 49 mg/51 mg TAB 1 EACH PO ×2 (08:03→19:45)
[2022-01-18] MEDS: Cefpodoxime 200 MG TAB PO ×2 (08:03→19:45)
[2022-01-18] MEDS: Tamsulosin 0.4 MG CAPCR PO (08:04)
[2022-01-18] MEDS: Multivitamin TAB 1 TAB PO (08:04)
[2022-01-18] MEDS: Furosemide 20 MG TAB 40 MG PO ×2 (08:04→16:58)
[2022-01-18] MEDS: Pantoprazole 40 MG TABCR PO (08:04)
[2022-01-18] MEDS: Aspirin E.C. 81 MG TABEC PO (08:05)
[2022-01-18] MEDS: Doxycycline Hyclate 100 MG CAP PO ×2 (08:05→19:46)
[2022-01-18] MEDS: Potassium Chloride 10 MEQ CAPCR PO (08:05)
[2022-01-18] MEDS: Clopidogrel 75 MG TAB PO (08:05)
[2022-01-18] MEDS: Ferrous Sulfate 325 MG TAB PO (08:05)
[2022-01-18] MEDS: Budesonide/Formoterol 80/4.5 6.9 GM 60 PUFF INH IH ×2 (09:09→19:47)
--- NOTE | 2022-01-18 09:21 | PT.INTREAT ---
Date of service: 01/18/22 Time of Service: 08:39 PT Notes Visit Reasons: Pneumonia with Hypoxemia Inpatient Physical Therapy Treatment Note [facility] Date: 01/18/2022 PRECAUTIONS: Activity as tolerated, fall SUBJECTIVE: Santiago is pleasant and agreeable to participating in PT. He reports that he does not feel ready to discharge to home today. He c/o increased numbness in B feet and pain in B calves with gait training. OBJECTIVE: PAIN: See subjective portion of this note. BED MOBILITY/TRANSFERS Supine-sit: S with HOB flat Sit-supine: S with HOB flat Sit-stand: SBA Stand-sit: SBA GAIT Assistive Device: 4WW Weight bearing: Full Assist: SBA Distance: 50' x2 in a.m.; 60' x2 in p.m. Deviation: Slow pacing, shuffling gait, cueing for increased step height and length, seated rest THEREX: Patient was instructed in a LE strengthening program, completed in a supine position, to include: ankle pumps, quad sets, glute sets, heel slides, hip abduction and bridging. 4WW MECHANICS: Patient was instructed in safe and appropriate use of 4WW: locks, brakes and seat. ASSESSMENT: Patient tolerated session well with some complaint of increased fatigue. He continues to report numbness in B feet and pain in B calves with gait training. PLAN: Continue with general conditioning and gait training for continued progression toward baseline level of function. TREATMENT CODE/TIME: Session 1: 24 minutes; 62018, [id number] (08:39) Session 2: 14 minutes; [id number] (14:14)
[2022-01-18] MEDS: Normal Saline Flush 10 ML SYR IVP ×2 (09:49→19:48)
[2022-01-18] MEDS: Docusate Sodium 100 MG CAP PO ×2 (09:49→19:47)
[2022-01-18] MEDS: nitroGLYcerin 0.4 MG TAB SL (11:05)
[2022-01-18] MEDS: Insulin Aspart 300 UNITS/3 ML PEN SC (12:05)
[2022-01-18] MEDS: Bacitracin 1 PACKET TP (14:33)
--- NOTE | 2022-01-18 15:28 | W.PM.PROGNOT ---
Date of Service Date of service: 01/18/22 Time of Service: 15:29 Assessment and Plan Assessment and plan (1) Pneumonia: Status: Acute Assessment and plan: LLL per xray, no oxygen requirements continue oral doxycycline and cefpodoxime continue respiratory inhalers (2) Hypoxemia: Status: Resolved Assessment and plan: SPO2 RA >94% (3) GERD (gastroesophageal reflux disease): Status: Chronic Assessment and plan: Stable - continue pantoprazole (4) Type 2 diabetes mellitus with diabetic neuropathy, unspecified: Status: Chronic Assessment and plan: Stable - continue home meds check blood sugars ac/hs with coverage A1C 6.22 Nov 2021 (5) Ischemic cardiomyopathy: Status: Chronic Assessment and plan: stable Telemetry, daily weights Continue daily weights (6) DVT prophylaxis: Status: Acute Assessment and plan: Enoxaparin (7) Discharge planning issues: Status: Acute Assessment and plan: Home with home health services, likely 01/19. will have PT evaluate for discharge planning, they recommended he go home tomorrow 01/19 with Home Health Nsg, PT, OT & FILLING STATION EQUIPMENT MECHANIC discussed with Dr Muñoz. Subjective Subjective Patient reports: tolerating a regular diet, bowel movement and afebrile; denies diarrhea or vomiting Interval history since last seen: Complaining of increase in usually numb feet today. States he is having difficulty walking. He did participate with PT today twice Exam Const General: cooperative, comfortable, no acute distress and frail appearing Nutritional Appearance: average body habitus Orientation: alert, awake and oriented x3 HENMT Head: normal to inspection, normocephalic and atraumatic Mouth: oral mucosae normal Resp Effort & Inspection: normal respiratory effort Auscultation: diminished lung sounds, no rales and no wheezes Cardio Rate: regular rate Rhythm: regular rhythm GI Inspection: normal to inspection Palpation: soft Auscultation: normal bowel sounds Skin General skin exam: no rashes or lesions noted Neuro General: patient alert, patient awake, patient oriented x3 and no focal motor deficits Cognition: normal cognition Speech: speech normal Gait: normal gait Motor: muscle tone normal throughout Extrem General: normal to inspection, full ROM and no pedal edema Objective Last Vital Signs Temp 36.5 C 01/18/22 10:42 Pulse 86 01/18/22 10:42 Resp 16 01/18/22 10:42 BP 98/61 L 01/18/22 14:10 Pulse Ox 94 01/18/22 10:42
--- NOTE | 2022-01-18 17:37 | PDOC.CMPRO ---
- If Service Date Differs Date of service: 01/18/22 Time of Service: 17:37 Care Management Progress Note S/O:Santiago was sitting up in bed when CM met with him. He has been out of bed ambulating with a walker with minimal assist. He had a PT evaluation yesterday which recommended PT and OT. Santiago verbalized that he still does not feel ready to go home. He stated that he still feels short of breath His O2 saturation levels have been in the mid-nineties on room air. Santiago remains afebrile, his WBC is down to normal (7.54) and his CRP is down to 8.95 form 18. Discharge is planned for tomorrow.. A: Santiago is an 81 year old man admitted on 01/14/22 with pneumonia and hypoxia. P:Santiago will likely be discharged home with a resumption of his current services with new home health nursing, PT and OT. He will follow up with his PCP and discharge plan of care as directed. Santiago will be transported home by his daughter, Jake, via private vehicle when ready. CM will continue to support Santiago and any discharge planning needs.
[2022-01-18] MEDS: Polyethylene Glycol 3350 17 GM PACKET PO (19:44)
[2022-01-18] MEDS: Rosuvastatin 5 MG TAB PO (19:46)
[2022-01-18] MEDS: Divalproex 250 MG TABEC 1000 MG PO (21:16)
[2022-01-18] MEDS: traZODone 50 MG TAB 25 MG PO (21:19)
[2022-01-18] MEDS: Enoxaparin 40 MG/0.4 ML SYR SC (21:19)
[2022-01-19] VITALS (12 sets, daily range): BP systolic 91–121; BP diastolic 56–75; PULSE 75–95; RESP 16–18; TEMP 35.6–36; O2SAT 87–98
[2022-01-19] MEDS: nitroGLYcerin 0.4 MG TAB SL ×2 (01:27→01:34)
--- NOTE | 2022-01-19 01:57 | NUR.NOTE ---
Nursing Note: Patient rang call negro and complained of chest pain. States the chest pain was sharp and hurt and was 5/10. It was midsternal, and it didn't radiate anywhere. The pain was also not reproducible. Patient requesting Nitro SL at this time. Nitro 0.4 provided to patient. VS as noted in chart. Patient reported after 5 minutes that his chest pain was now 2/10. A second nitro was administered. Vital signs obtained and documented. Patient reported that chest pain had resolved. This music writer asked patient if he was anxious. Patient denies feeling anxious. He reports that for the last month, he has had to take nitro at bedtime he believes because of all of the exercise he has to do to get into bed. He then complained of SOB. O2 sat 89% on room air. 2L NC placed and patient is 93%. Patient reports that his breathing has improved. Charge nurse made aware.
[2022-01-19] MEDS: Furosemide 20 MG TAB 40 MG PO ×2 (07:52→15:53)
[2022-01-19] MEDS: Sacubitril/Valsartan 49 mg/51 mg TAB 1 EACH PO ×2 (07:53→20:17)
[2022-01-19] MEDS: Cefpodoxime 200 MG TAB PO ×2 (07:53→20:17)
[2022-01-19] MEDS: Tamsulosin 0.4 MG CAPCR PO (07:53)
[2022-01-19] MEDS: Pantoprazole 40 MG TABCR PO (07:53)
[2022-01-19] MEDS: Ferrous Sulfate 325 MG TAB PO (07:53)
[2022-01-19] MEDS: Doxycycline Hyclate 100 MG CAP PO ×2 (07:53→20:17)
[2022-01-19] MEDS: Multivitamin TAB 1 TAB PO (07:53)
[2022-01-19] MEDS: Aspirin E.C. 81 MG TABEC PO (07:53)
[2022-01-19] MEDS: Potassium Chloride 10 MEQ CAPCR PO (07:53)
[2022-01-19] MEDS: Clopidogrel 75 MG TAB PO (07:53)
[2022-01-19] MEDS: Normal Saline Flush 10 ML SYR IVP (08:01)
[2022-01-19] MEDS: Budesonide/Formoterol 80/4.5 6.9 GM 60 PUFF INH IH ×2 (09:03→20:16)
--- NOTE | 2022-01-19 09:25 | NUR.NOTE ---
Nursing Note: spoke with patients daughter (who is on the HIPPA form) at 0920 and she was wondering how the patient was going to get his medications if he is discharged today because [facility] fills his meds. I notified the clinical coordinator zane who will reach out to care management regarding this matter.
[2022-01-19] MEDS: Docusate Sodium 100 MG CAP PO (10:42)
--- NOTE | 2022-01-19 10:57 | PT.INTREAT ---
PT Notes Visit Reasons: Pneumonia with Hypoxemia Inpatient Physical Therapy Treatment Note [facility] Date: 01/19/22 SUBJECTIVE: Pt reports that in the night he had chest pain. OBJECTIVE: Supine-sit: SBA Sit-supine: SBA Sit-stand: CGA Stand-sit: CGA GAIT Assistive Device: 4WW Weight bearing: Full Assist: CGA Distance: Once standing pt felt dizzy bp was 95/55 HR89 and oxygen 100% we attempted standing x 2 but pt was too dizzy. THEREX: Supine shoulder flexion x 10, horz abd x 10, circles x 10, rowing x 10, LE hip abd x 10, heel slide x 10, SLR x 10, and Q.S. x 10. ASSESSMENT: With standing pt experienced dizziness. Pt was fatigued fairly quickly today. PLAN: Cont as per PT POC. TREATMENT CODE/TIME: 10:45-11:15 TABITHA VALDOVINOS (30)
[2022-01-19] MEDS: Insulin Aspart 300 UNITS/3 ML PEN SC (12:05)
--- NOTE | 2022-01-19 13:56 | PGE_ITS ---
Date of Service Date of service: 01/19/22 Time of Service: 13:56 Assessment and Plan Assessment and plan (1) Chest pain: Status: Acute Assessment and plan: occurred overnight at rest, resolved after 2 nitro. take nitro regularly at home for sob and at HS. no changes on telemetry. will check troponin, ekg. (2) Pneumonia: Status: Acute Assessment and plan: LLL per xray, no oxygen requirements continue oral doxycycline and cefpodoxime day 5/7 continue respiratory inhalers (3) Hypoxemia: Status: Resolved Assessment and plan: SPO2 RA >94% (4) GERD (gastroesophageal reflux disease): Status: Chronic Assessment and plan: Stable - continue pantoprazole (5) Type 2 diabetes mellitus with diabetic neuropathy, unspecified: Status: Chronic Assessment and plan: Stable - continue home meds check blood sugars ac/hs with coverage A1C 6.22 Nov 2021 (6) Ischemic cardiomyopathy: Status: Chronic Assessment and plan: with chest pain overnight, required 2 nitro no changes on telemetry, will check troponin Continue daily weights (7) DVT prophylaxis: Status: Acute Assessment and plan: Enoxaparin (8) Discharge planning issues: Status: Acute Assessment and plan: Home with home health services, when medically stable. will have PT evaluate for discharge planning, they recommended he go home tomorrow 01/19 with Home Health Nsg, PT, OT & VETERINARY BACTERIOLOGIST discussed with Dr Collazo. Subjective Subjective Patient reports: no new complaints, feels better (had chest pain overnight requiring 2 nitro. has similar history and uses nitro frequently at home. ), tolerating liquids well, tolerating a regular diet and afebrile; denies shortness of breath Exam Const General: cooperative, comfortable, no acute distress and frail appearing Nutritional Appearance: average body habitus Orientation: alert, awake and oriented x3 [facility] Head: normal to inspection, normocephalic and atraumatic Mouth: oral mucosae normal Resp Effort & Inspection: normal respiratory effort Auscultation: diminished lung sounds, no rales and no wheezes Cardio Rate: regular rate Rhythm: regular rhythm GI Inspection: normal to inspection Palpation: soft Auscultation: normal bowel sounds Skin General skin exam: no rashes or lesions noted Neuro General: patient alert, patient awake, patient oriented x3 and no focal motor deficits Cognition: normal cognition Speech: speech normal Gait: normal gait Motor: muscle tone normal throughout Extrem General: normal to inspection, full ROM and no pedal edema Objective Last Vital Signs Temp 36.8 C 01/18/22 22:39 Pulse 75 01/19/22 07:04 Resp 16 01/19/22 07:04 BP 91/56 L 01/19/22 07:04 Pulse Ox 98 01/19/22 10:47
[2022-01-19] MEDS: Metoprolol 12.5 MG TAB PO ×2 (14:26→20:20)
[2022-01-19 14:29] LABS: Abs Immature Grans 0.02 10^3/uL (0.0-0.06); Absolute Basophil Count 0.06 10^3/uL (0.0-0.2); Absolute Eosinophil Count 0.17 10^3/uL (0.0-0.7); Absolute Lymphocyte Count 0.89 10^3/uL (1.2-3.4); Absolute Neutrophil Count 3.95 10^3/uL (1.2-6.7); Basophils % 1.1; HCT 34.1 % (40.0-50.0); HGB 10.8 g/dL (13.5-17.5); Immature Grans % 0.4; Lymphocytes % 15.6; MCH 30.1 pg (27.0-33.0); MCHC 31.7 % (32.0-36.0); MCV 95 fL (80-95); MPV 10.6 fL (8.0-11.0); Monocytes % 10.5; Neutrophils % 69.4; Platelet Count 243 10^3/uL (130-400); RBC 3.59 10^6/uL (4.36-5.78); RDW 13.7 % (11.8-14.1); RDW-SD 47.8 fL; WBC 5.69 10^3/uL (4.4-10.8)
[2022-01-19 14:39] LABS: Anion Gap 5.1 mmol/L (3-11); BUN 24 mg/dL (7-18); CO2 33.9 mmol/L (21.0-32.0); CREATININE 1.2 mg/dL (0.70-1.30); Calcium 8.9 mg/dL (8.5-10.1); Chloride 101 mmol/L (98-107); Estimated GFR 60.75 (mL/min/1.73m2); Glucose 156 mg/dL (74-106); Potassium 4.2 mmol/L (3.5-5.1); Sodium 140 mmol/L (136-145)
[2022-01-19 14:47] LABS: Troponin I < 50 ng/L (<or=60)
[2022-01-19] MEDS: Divalproex 250 MG TABEC 1000 MG PO (20:18)
[2022-01-19] MEDS: Rosuvastatin 5 MG TAB PO (20:19)
[2022-01-19] MEDS: traZODone 50 MG TAB 25 MG PO (20:19)
[2022-01-19] MEDS: Enoxaparin 40 MG/0.4 ML SYR SC (20:20)
[2022-01-20] VITALS (11 sets, daily range): BP systolic 92–124; BP diastolic 59–66; PULSE 75–102; RESP 16–18; TEMP 35.9–36.6; O2SAT 92–100
[2022-01-20] MEDS: Polyethylene Glycol 3350 17 GM PACKET PO ×2 (05:42→20:24)
[2022-01-20] MEDS: Docusate Sodium 100 MG CAP PO (05:42)
[2022-01-20] MEDS: Metoprolol 12.5 MG TAB PO ×2 (05:51→20:21)
[2022-01-20] MEDS: Multivitamin TAB 1 TAB PO (08:17)
[2022-01-20] MEDS: Clopidogrel 75 MG TAB PO (08:17)
[2022-01-20] MEDS: Furosemide 20 MG TAB 40 MG PO ×2 (08:17→16:23)
[2022-01-20] MEDS: Ferrous Sulfate 325 MG TAB PO (08:17)
[2022-01-20] MEDS: Aspirin E.C. 81 MG TABEC PO (08:17)
[2022-01-20] MEDS: Doxycycline Hyclate 100 MG CAP PO ×2 (08:18→20:22)
[2022-01-20] MEDS: Pantoprazole 40 MG TABCR PO (08:18)
[2022-01-20] MEDS: Potassium Chloride 10 MEQ CAPCR PO (08:18)
[2022-01-20] MEDS: Bacitracin 1 PACKET TP (08:19)
[2022-01-20] MEDS: Tamsulosin 0.4 MG CAPCR PO (08:19)
[2022-01-20] MEDS: Cefpodoxime 200 MG TAB PO ×2 (08:19→20:22)
[2022-01-20] MEDS: Sacubitril/Valsartan 49 mg/51 mg TAB 1 EACH PO ×2 (09:50→20:22)
--- NOTE | 2022-01-20 10:08 | PT.INTREAT ---
PT Notes Visit Reasons: Pneumonia with Hypoxemia Inpatient Physical Therapy Treatment Note [facility] Date: 01/20/22 SUBJECTIVE: Pt reports that he feels like his legs are going to give out when he stands. Pt reports that he did not have anymore chest pain last night but still feels very dizzy and like his head is spinning. OBJECTIVE: Sit-stand: CGA Stand-sit: CGA GAIT Assistive Device: FWW Weight bearing: Full Assist: CGA Distance: Stand pivot to commode also stood to fatigue but got very dizzy and felt his legs were giving out very quickly after standing. THEREX: UE shoulder flex x 10, abd x 10 rowing x 10, circles x 10 LE abd x 10 marching x 20 alt, LAQ x 10 ASSESSMENT: Pt's dizziness seems to not allow for him to tolerate a lot with his sessions. Pt did have to take frequent short rest due to fatigue during his session. PLAN: Cont as per PT POC. TREATMENT CODE/TIME: 9:55-10:07 (12) TP
[2022-01-20] MEDS: Budesonide/Formoterol 80/4.5 6.9 GM 60 PUFF INH IH ×2 (10:44→20:20)
[2022-01-20] MEDS: Insulin Aspart 300 UNITS/3 ML PEN SC (12:01)
--- NOTE | 2022-01-20 17:26 | W.PM.PROGNOT ---
Date of Service Date of service: 01/20/22 Time of Service: 17:27 Assessment and Plan Assessment and plan (1) Ischemic cardiomyopathy: Status: Chronic Assessment and plan: having brief vtach (under 6 beats) and asymptomatic. will update echo tomorrow troponin negative after chest pain episode electrolytes ok Continue daily weights (2) Chest pain: Status: Resolved Assessment and plan: no re-occurrence troponin negative, echo pending for tomorrow. (3) Pneumonia: Status: Acute Assessment and plan: LLL per xray, no oxygen requirements continue oral doxycycline and cefpodoxime day 6/7 continue respiratory inhalers (4) Hypoxemia: Status: Resolved Assessment and plan: SPO2 RA >94% (5) GERD (gastroesophageal reflux disease): Status: Chronic Assessment and plan: Stable - continue pantoprazole (6) Type 2 diabetes mellitus with diabetic neuropathy, unspecified: Status: Chronic Assessment and plan: Stable - continue home meds check blood sugars ac/hs with coverage A1C 6.22 Nov 2021 (7) DVT prophylaxis: Status: Acute Assessment and plan: Enoxaparin (8) Discharge planning issues: Status: Acute Assessment and plan: Home with home health services, when medically stable. will have PT evaluate for discharge planning, they recommended he go home tomorrow 01/19 with Home Health Nsg, PT, OT & [employer] ASSOCIATE discussed with Dr Collazo. Subjective Subjective Patient reports: no new complaints, feels better, tolerating liquids well, tolerating a regular diet, voiding w/o difficulty and afebrile; denies shortness of breath Exam Const General: cooperative, comfortable, no acute distress and frail appearing Nutritional Appearance: average body habitus Orientation: alert, awake and oriented x3 [facility] Head: normal to inspection, normocephalic and atraumatic Mouth: oral mucosae normal Resp Effort & Inspection: normal respiratory effort Auscultation: diminished lung sounds, no rales and no wheezes Cardio Rate: regular rate Rhythm: regular rhythm GI Inspection: normal to inspection Palpation: soft Auscultation: normal bowel sounds Skin General skin exam: no rashes or lesions noted Neuro General: patient alert, patient awake, patient oriented x3 and no focal motor deficits Cognition: normal cognition Speech: speech normal Gait: normal gait Motor: muscle tone normal throughout Extrem General: normal to inspection, full ROM and no pedal edema Objective Last Vital Signs Temp 36.2 C L 10/02/22 15:43 Pulse 78 01/20/22 16:03 Resp 16 01/20/22 15:43 BP 102/66 01/20/22 15:43 Pulse Ox 92 01/20/22 15:43
[2022-01-20] MEDS: Divalproex 250 MG TABEC 1000 MG PO (20:23)
[2022-01-20] MEDS: Rosuvastatin 5 MG TAB PO (20:23)
[2022-01-20] MEDS: traZODone 50 MG TAB 25 MG PO (20:23)
[2022-01-20] MEDS: Normal Saline Flush 10 ML SYR IVP (20:24)
[2022-01-20] MEDS: Enoxaparin 40 MG/0.4 ML SYR SC (20:24)
[2022-01-21] VITALS (9 sets, daily range): BP systolic 106–118; BP diastolic 61–73; PULSE 76–87; RESP 16–18; TEMP 35.6–36.5; O2SAT 94–99
[2022-01-21] MEDS: Metoprolol 12.5 MG TAB PO ×3 (06:04→21:48)
[2022-01-21 07:09] LABS: Abs Immature Grans 0.03 10^3/uL (0.0-0.06); Absolute Basophil Count 0.08 10^3/uL (0.0-0.2); Absolute Eosinophil Count 0.32 10^3/uL (0.0-0.7); Absolute Lymphocyte Count 1.11 10^3/uL (1.2-3.4); Absolute Monocyte Count 0.94 10^3/uL (0.1-0.8); HCT 33.3 % (40.0-50.0); HGB 10.5 g/dL (13.5-17.5); Immature Grans % 0.4; Lymphocytes % 13.9; MCH 29.6 pg (27.0-33.0); MCHC 31.5 % (32.0-36.0); MCV 94 fL (80-95); Monocytes % 11.8; Neutrophils % 68.9; Platelet Count 246 10^3/uL (130-400); RBC 3.55 10^6/uL (4.36-5.78); RDW 13.7 % (11.8-14.1); RDW-SD 47.1 fL; WBC 7.98 10^3/uL (4.4-10.8)
[2022-01-21 07:23] LABS: Anion Gap 5.4 mmol/L (3-11); BUN 23 mg/dL (7-18); CO2 33.6 mmol/L (21.0-32.0); CREATININE 1.1 mg/dL (0.70-1.30); Chloride 101 mmol/L (98-107); Estimated GFR 67.44 (mL/min/1.73m2); Glucose 101 mg/dL (74-106); Potassium 4.1 mmol/L (3.5-5.1); Sodium 140 mmol/L (136-145)
[2022-01-21] MEDS: Pantoprazole 40 MG TABCR PO (08:15)
[2022-01-21] MEDS: Clopidogrel 75 MG TAB PO (08:15)
[2022-01-21] MEDS: Multivitamin TAB 1 TAB PO (08:15)
[2022-01-21] MEDS: Tamsulosin 0.4 MG CAPCR PO (08:16)
[2022-01-21] MEDS: Ferrous Sulfate 325 MG TAB PO (08:16)
[2022-01-21] MEDS: Potassium Chloride 10 MEQ CAPCR PO (08:16)
[2022-01-21] MEDS: Aspirin E.C. 81 MG TABEC PO (08:16)
[2022-01-21] MEDS: Furosemide 20 MG TAB 40 MG PO ×2 (08:16→15:36)
[2022-01-21] MEDS: Sacubitril/Valsartan 49 mg/51 mg TAB 1 EACH PO ×2 (08:16→19:47)
[2022-01-21] MEDS: Cefpodoxime 200 MG TAB PO ×2 (08:16→19:47)
[2022-01-21] MEDS: Doxycycline Hyclate 100 MG CAP PO ×2 (08:16→19:46)
[2022-01-21] MEDS: Polyethylene Glycol 3350 17 GM PACKET PO (08:26)
[2022-01-21] MEDS: Docusate Sodium 100 MG CAP PO (08:26)
--- NOTE | 2022-01-21 09:15 | CMPROGNOTE_ITS ---
- If Service Date Differs Date of service: 01/21/22 Time of Service: 09:15 Care Management Progress Note S/O:Santiago was sitting up in bed when CM met with him. He was pleasant and alert and engaged easily in conversation with CM. Santiago was supposed to discharge home today after his Echocardiogram, however as there was a decrease in his EF from 30-35% to 25% it will be delayed. The provider has requested a cardiology consult to ensure there are no medication or treatment changes that need to be made in light of this information. Jake, Santiago's daughter, has been updated by CM. A: Santiago is an 81 year old man admitted on 01/14/22 with pneumonia and hypoxia. P:Santiago will likely be discharged home with a resumption of his current services and an increase in home health support. He will follow up with his PCP and discharge plan of care as directed. Santiago will be transported home by his daugh ter [place], via private vehicle when ready. CM will continue to support Santiago and any discharge planning needs.
--- NOTE | 2022-01-21 09:30 | DI.US_ITS ---
APPROVED REPORT EXAM: Comprehensive 2D, Doppler, and color-flow Echocardiogram Patient Location: In-Patient Room/Bed: [address] Supervisor: Jailyn Lagunas RDCS (AE) Indications: V Tach, Ischemic cardiomyopathy, CAD, CABG Other Information Study Quality: Fair. Technically limited study due to body habitus. Conclusion Technically difficult study Left ventricle is moderately dilated. There is severe left ventricular dysfunction. Estimated eject ion fraction is approximately 25%. Regional wall motion could not be accurately assessed The right ventricle was not well visualized Both atria are normal in size Aortic valve is trileaflet and sclerotic without stenosis or regurgitation Mildly thickened mitral leaflets with trace to mild regurgitation Normal tricuspid valve with trace regurgitation Wall motion Left Ventricle Left ventricle is moderately dilated. Left ventricular systolic function is severely decreased. There is normal left ventricular wall thickness. Regional wall motion abnormalities cannot be excluded. L VEF is 27%. Right Ventricle Right ventricle is not well visualized. Right ventricular systolic function could not be assessed. Atria The left atrium size is normal. The right atrium size is normal. Aortic Valve The Aortic valve is sclerotic. Aortic valve is trileaflet. There is no aortic valvular stenosis. No a ortic regurgitation is present. Mitral Valve Mildly thickened mitral leaflets No evidence of mitral valve stenosis. Trace to mild mitral regurgita tion. Tricuspid Valve The tricuspid valve is normal in structure. There is no tricuspid valve stenosis. Trace tricuspid reg urgitation. Pulmonic Valve The pulmonary valve is normal in structure. There is no pulmonic valvular stenosis. Trace pulmonic re gurgitation. Great Vessels The aortic root is normal in size. The ascending aorta is normal in size. Aortic arch is not well vis ualized. The IVC was not visualized. Pericardium Technically difficult sub costal imaging. 2D Dimensions IVSD d PLAX 1.07 cm M: 0.6-1.2 LV Vol A2C d MOD 129.6 mL LVPW d PLAX 1.08 cm M: 0.6 - 1.2 LV Vol A4C d MOD 182.1 mL LVID d PLAX 6.68 cm M: 4.2 - 5.8 LV EF A4C MOD 25.3 % LVDs 5.90 cm M: 2.5 - 4.0 LV EF A2C MOD 28.5 % Ao Root d 3.16 cm M: 3.1 - 3.7 LV EF Biplane MOD 27.0 % Ao Asc Diam d 3.38 cm M: 2.6 - 3.4 SV 41.58 mL LV EF Teichholz 23.8 % SV Index 22.15 mL/m2 LVEF (Sheth's) 27.04 % M: 52 - 72 LV Volume 117.84 mL M: 62 - 150 LV Volume Index 63.01 mL/m2 M: 34 - 74 LV Vol Biplane MOD 153.8 mL FS 11.20 % M-Mode TAPSE 1.11 cm (M/F) >1.7 LV Diastology MV E' medial 0.042 (>0.07 m/s) E/A Ratio 0.5 LV E/e MED 12.20 (<14) MV E Vmax 0.51 (0.4-1.3 m/s) MV E' lateral 0.073 (>0.1 m/s) MV A Vmax 0.95 (0.4-1.3 m/s) LV E/e LAT 7.00 (<14) MV E/A Ratio 0.52 MV E/E' medial 12.24 MV E/E' lateral 7.01 Aortic Valve LVOT Area 3.19 cm2 AoV Area Vmax 2.59 cm2 LVOT Vmax 0.98 m/s AoV Area/ BSA (Vmax) 1.38 cm2/m2 LVOT Mean Fredrick. 0.63 m/s FRANKIE Mean Fredrick. 2.31 cm2 LVOT Peak Grad 3.9 mmHg FRANKIE Mean Fredrick. Index 1.23 cm2/m2 LVOT Mean Grad 1.8 mmHg LVOT VTI 0.164 m LVOT Diam s 2.00 cm AoV Vmax 1.21 m/s Velocity Ratio 0.80 AoV Mean Fredrick. 0.87 m/s AoV Peak Grad 5.8 mmHg LVOT SV 52.29 mL AoV Mean Grad 3.3 mmHg AoV VTI 0.208 m AoV Area VTI 2.51 cm2 AoV Area/ BSA (VTI) 1.34 cm/m2 Mitral Valve MV DT 197 (160-240 msec) MV PHT 57 msec MV Area PHT 3.85 cm2 MV VTI 0.293 m MV Area VTI 1.78 (4.0-6.0 cm2) Pulmonary Valve PV Vmax 0.86 (0.5-1.5 m/s) RVOT Peak Gr. 0.75 mmHg PV Peak Grad 2.9 mmHg RVOT Mean Gr. 0.40 mmHg PV Mean Grad 1.7 mmHg RVOT VTI 0.089 m PV VTI 0.177 m RVOT Vmax 0.43 m/s Tricuspid Valve TR Peak Grad 20.2 mmHg TR Vmax 2.25 m/s
--- NOTE | 2022-01-21 12:36 | PT.INTREAT ---
Date of service: 01/21/22 Time of Service: 10:11 PT Notes Visit Reasons: Pneumonia with Hypoxemia Inpatient Physical Therapy Treatment Note [facility] Date: 01/21/2022 PRECAUTIONS: Activity as tolerated, fall SUBJECTIVE: Santiago is pleasant and agreeable to participating in PT. He reports that he has been feeling dizzy with transfers, which is new. He continues to c/o increased numbness in B feet and pain in B calves with gait training. OBJECTIVE: PAIN: See subjective portion of this note. BED MOBILITY/TRANSFERS Supine-sit: S with HOB flat Sit-supine: S with HOB flat Sit-stand: SBA Stand-sit: SBA GAIT Assistive Device: 4WW Weight bearing: Full Assist: SBA Distance: 30' x2 Deviation: Slow pacing, shuffling gait, cueing for increased step height and length, seated rest, cueing for 4WW management VITALS: Orthostatic BP: Supine 119/71, 77 bpm, 97%; seated 113/61, 81 bpm, 96%; standing 111/65, 85 bpm, 98% 115/66, 86 bpm, 98% ASSESSMENT: Patient tolerated session well with some complaint of increased fatigue. He continues to report numbness in B feet and pain in B calves with gait training. PLAN: Patient to discharge to home later today, per provider. Recommend follow up with HH PT/OT upon discharge. TREATMENT CODE/TIME: 20 minutes; 51106 (10:11)
--- NOTE | 2022-01-21 14:17 | INDS_ITS ---
PT Notes Visit Reasons: Pneumonia with Hypoxemia Inpatient Physical Therapy Discharge Summary Treatment Dates: 01/17/22 - 01/21/22 Referring Doctor: Jenny Ledezma PT Orders: PT CONSULT This document serves as a summary of care. No PT services were provided on this date. Patient Profile/Admitting Diagnosis: Santiago is a an 81 year old male admitted on 01/14/22 secondary to pneumonia and hypoxia. He participated in 6 PT sessions over the course of 5 days, with improvements in mobility and activity tolerance sufficient to allow for safe transition back to community with increased services. Social History/Home Situation: Santiago lives alone in a private home. Has a ramp to enter. Utilizes a rollator walker for all ambulation except in his bathroom where his rollator won't fit. He has grab bars and utilizes his SPC in the bathroom for assistance. Does utilize a shower chair for bathing. Has a lifeline in place. Does receive Home Health services to assist with cleaning of his home. Santiago notes that he has a daughter, Jake that lives close by. Current Functional Limitations: decreased activity tolerance, general weakness Equipment Owned/DME: Rollator, SPC Subjective: None obtained. Objective: ROM: Right Upper Extremity: ? Shoulder Flexion WFL. Shoulder abduction WFL. Elbow flexion WFL. Wrist flexion WFL. Functional opening and closing of hand WFL. Left Upper Extremity:? Shoulder Flexion WFL. Shoulder abduction WFL. Elbow flexion WFL. Wrist flexion WFL. Functional opening and closing of hand WFL. Right Lower Extremity: Hip flexion WFL. Hip abduction WFL. Knee flexion WFL. Ankle dorsiflexion WFL. Ankle plantarflexion WFL. Left Lower Extremity: Hip flexion WFL. Hip abduction WFL. Knee flexion WFL. Ankle dorsiflexion WFL. Ankle plantarflexion WFL. Strength: Right Upper Extremity: Shoulder flexors 4/5. Shoulder abductors 4/5. Elbow flexors 5/5. Elbow extensors 4/5. Electric Meter Technician strong. Left Upper Extremity: Shoulder flexors 4/5. Shoulder abductors 4/5. Elbow flexors 5/5. Elbow extensors 4/5. Electric Meter Technician strong. Right Lower Extremity: Hip flexors 4-/5. Hip abductors 4/5. Knee flexors 5/5. Knee extensors 4/5. Ankle dorsiflexors 4/5. Ankle plantarflexors 5/5. Left Lower Extremity: Hip flexors 4-/5. Hip abductors 4/5. Knee flexors 5/5. Knee extensors 4/5. Ankle dorsiflexors 4/5. Ankle plantarflexors 5/5. Bed Mobility/Transfers: Rolling independent Supine to sit independent Sit to supine independent Sit to stand CGA Stand to sit CGA Bed to chair CGA with rollator Chair to bed CGA with rollator Gait: Able to tolerate ambulation of up to 60 feet with FWW, supervision. Balance: Static Sitting: Normal Dynamic Sitting: Normal Static Standing: Fair Dynamic Standing: Fair Assessment: Patient is a 81 year old male referred to physical therapy services with the diagnosis of pneumonia and hypoxia. He participated in 6 PT sessions over the course of 5 days, with improvements in mobility and activity tolerance sufficient to allow for safe transition back to community with increased services. He has a planned d/c for later today. Discharge from PT services in acute care setting, with recommendation of HH PT for continued progress toward established goals. Goals: Goals X1 week 1. Sit-Stand independent (progressing toward, with CGA only) 2. Stand-Sit independent(progressing toward, with CGA only) 3. Bed-Chair independent with use of rollator(progressing toward, with CGA only) 4. Chair-Bed independent with use of rollator(progressing toward, with CGA only) 5. Gait 100 ft with use of rollator (progressing toward) 6. Improved static standing balance to good (progressing toward) Plan of Care/Treatment Plan: D/C from PT services in acute care setting. DISCHARGE RECOMMENDATIONS:Home with HH PT and OT. TREATMENT CODE/TIME: none Akila Burns, PT, DPT [facility]
[2022-01-21] MEDS: Budesonide/Formoterol 80/4.5 6.9 GM 60 PUFF INH IH (19:46)
[2022-01-21] MEDS: Rosuvastatin 5 MG TAB PO (19:46)
[2022-01-21] MEDS: Divalproex 250 MG TABEC 1000 MG PO (21:47)
[2022-01-21] MEDS: traZODone 50 MG TAB 25 MG PO (21:47)
[2022-01-21] MEDS: Calcium Carbonate *TUMS* 500 MG CHEW PO (21:48)
[2022-01-21] MEDS: Enoxaparin 40 MG/0.4 ML SYR SC (21:48)
[2022-01-22] MEDS: Metoprolol 12.5 MG TAB PO ×2 (05:15→13:54)
[2022-01-22 07:00] VITALS: PULSE 73
[2022-01-22 07:46] VITALS: BP 112/54; BP 88/55; PULSE 76; RESP 16; TEMP 35.1; O2SAT 93
[2022-01-22 07:50] VITALS: BP 110/52
[2022-01-22] MEDS: Budesonide/Formoterol 80/4.5 6.9 GM 60 PUFF INH IH (07:50)
--- NOTE | 2022-01-22 08:17 | CCONE_ITS ---
Date of service: 01/22/22 Time of Service: 08:17 Assessment and Plan Assessment and plan (1) Ischemic cardiomyopathy: Status: Chronic Assessment and plan: As noted this is not a new finding. I would recommend changing metoprolol to tartrate back to metoprolol succinate. He should be continued on diuretics to achieve euvolemia (2) Atherosclerosis of [place] coronary artery: Status: Acute Assessment and plan: Last cardiac catheterization in May showed no targets for intervention Patient should be scheduled to follow-up in clinic for further management. I have no specific recommendations other than metoprolol succinate as above Qualifiers: [place] vs. transplanted heart: [place] heart Associated angina: without angina Qualified Code(s): I25.10 - Atherosclerotic heart disease of [place] coronary artery without angina pectoris History of Present Illness Narrative: This is a cardiac update on this 81-year-old man who has a longstanding cardiac history. It includes coronary artery disease as well as significant LV dysfunction dating back years. Apparently this consultation was placed because he is most recent echocardiogram showed an ejection fraction of approximately 25%. This is actually not a new finding. His EF has been this low in the past. He has been on guideline directed medical therapy including Entresto, metoprolol succinate, and diuretics to try and achieve euvolemia. Current medication list includes metoprolol tartrate. It is unclear why this was changed. He should be on metoprolol succinate or carvedilol ordered bisoprolol for guideline directed medical therapy he had cardiac catheterization done early in 2021. It found that his COLLINS to the LAD and his saphenous vein graft to the RUY/RPL 3 were patent. Prior stents in the saphenous vein graft were also patent. He had diffuse [place] disease elsewhere but no targets for intervention. Continued medical therapy was recommended patient is followed regularly in clinic last visit was in November He has a chronic left bundle branch block but QRS duration is not sufficiently prolonged that cardiac resynchronization therapy would be indicated PFSH All Active Problems (Updated 01/20/22 @ 17:30 by Jenny Ledezma NP) GERD (gastroesophageal reflux disease) (Chronic) DVT prophylaxis (Acute) Discharge planning issues (Acute) Pneumonia (Acute) Anemia (Chronic) 2021-chronic, mild, history of iron deficiency Type 2 diabetes mellitus with diabetic neuropathy, unspecified (Chronic) Ischemic cardiomyopathy (Chronic) Palliative care patient (Acute) Diabetic foot ulcer (Acute) 08/2021-1:00, longstanding superficial ulceration right lateral malleolus Psoriasis (Chronic) Hematuria (Acute) Total urinary incontinence (Acute 12/02/07) Right leg claudication (Acute 09/06/14) Peripheral neuralgia (Acute 12/02/07) 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 NSTEMI 06/07. EF 40% Threatening behavior (Active 10/23/12) Medical History Anemia (03/11/12) Chronic obstructive lung disease (12/02/07) Coronary atherosclerosis of [place] coronary vessel (12/02/07) s/p CABG 2004 with diminished ejection fraction. Diabetes mellitus periphreal neuropathy of feet Ischemic cardiomyopathy Peripheral vascular disease (12/02/07) bilateral leg claudication. Wants no intervention Schizophrenia (10/19/13) Periods of severe hypomania and agitation Smoker Surgical History Appendectomy Cholecystectomy Colonoscopy - MAC 05/14/12 Coronary Artery Bypass Gaft (CABG) 2005 HERNIA REPAIR RIGHT Family History Mother No problems noted. Father Heart disease Brother No problems noted. Social History Smoking/Tobacco Use Status: Current every day Tobacco Type: cigarettes Tobacco: How many years used: 55 Quit status: not considering quitting Counseling given: patient declined Smoking risk assessment performed?: Yes Alcohol Intake: never Drug use: Never Substance use type: does not use Caregiver/Support person: No Household members: none Pets and animals: No Sexually active: No Do you think of yourself as: straight/heterosexual Current gender identity: male What is your relationship status?: How often do you talk on the phone with friends or family?: three or more times per week How often do you attend presybeterian or baptist services?: decline to answer Do you belong to any clubs or organized social groups?: yes Panel score (0-1 are the most socially isolated patients): 2 What type of physical activity do you participate in: none and additional Details: only walks in home. 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
[2022-01-22] MEDS: Doxycycline Hyclate 100 MG CAP PO (08:52)
[2022-01-22] MEDS: Furosemide 20 MG TAB 40 MG PO (08:52)
[2022-01-22] MEDS: Aspirin E.C. 81 MG TABEC PO (08:52)
[2022-01-22] MEDS: Pantoprazole 40 MG TABCR PO (08:52)
[2022-01-22] MEDS: Potassium Chloride 10 MEQ CAPCR PO (08:52)
[2022-01-22] MEDS: Ferrous Sulfate 325 MG TAB PO (08:53)
[2022-01-22] MEDS: Multivitamin TAB 1 TAB PO (08:53)
[2022-01-22] MEDS: Cefpodoxime 200 MG TAB PO (08:53)
[2022-01-22] MEDS: Tamsulosin 0.4 MG CAPCR PO (08:53)
[2022-01-22] MEDS: Clopidogrel 75 MG TAB PO (08:53)
[2022-01-22] MEDS: Sacubitril/Valsartan 49 mg/51 mg TAB 1 EACH PO (08:53)
--- NOTE | 2022-01-22 11:38 | DSE_ITS ---
Date of service: 01/22/22 Time of Service: 11:39 DS: Diagnosis Discharge Diagnosis (1) Ischemic cardiomyopathy: Status: Chronic Asessment and Plan: Ryan has had some brief periods of asymptomatic VTac, neg troponins - he will be followed up by cardiology - PCP to do prior auth for 2 weeks cardiac event monitor. 7 days of antibiotics, inhalers, SPO2 >94% RA (2) Atherosclerosis of [place] coronary artery: Status: Acute Discharge Plan Disposition Patient Disposition: HOME W/HOME HEALTH SERVICE Condition: Stable Discharge Details Reason For Visit: Pneumonia with Hypoxemia Admit Date/Time: 01/14/22 19:57 Admit Provider: Bro Jennings Attending Provider: Andrew Soliz Primary Care Provider: Ruth Ann Christianson Hospital Course Hospital Course: This is an 81-year-old male patient who lives alone with a past [facility] history of COPD, schizophrenia and CABG currently on Plavix who presented to the [facility] ED with increasing shortness of breath.? He fell at home and could not get up on his own.? He was seen by EMS and found to be relatively hypoxic. They applied O2 and the patient became less hypoxic with pulse oximeter readings in the mid 90% range.? He was brought to [facility] ED for evaluation and he was found to have pneumonia and was hypoxic with pulse ox in the 80% range, which is new for him.? He was started on doxycycline and Rocephin and hospitalized for pneumonia.?Patient has had a cough with dyspnea prior to the onset of this acute issue with weakness and unable to get up.? He was exposed to COVID-19, he remains Covid negative.? He denied any fever or chest pain; he does have a history of heart disease.?He is a full code. Ryan participated in PT here and they recommend he have home health PT and OT. His mosts recent echocardiogram showed an ejection fraction of approximately 25%.? This is actually not a new finding. He has a chronic left bundle branch block. He did have some non sustained VTach while here and cardiology was consulted. They had no new recommendations. He has been considering whether or not to proceed with cardiac catheterization for quite a while but is now willing to do so. He also has had questions, discussed, as to whether or not he should have an implanted defibrillator. He is willing to consider that as well. He reports that he takes nitroglycerin every few days, generally 1 pill, and this is for symptoms of shortness of breath, not specifically for chest pain. He has been on guideline directed medical therapy including Entresto, metoprolol succinate, and diuretics to try and achieve euvolemia. Current medication list includes metoprolol tartrate.? It is unclear why this was changed.? He should be on metoprolol succinate or carvedilol ordered bisoprolol for guideline directed medical therapy he had cardiac catheterization done early in 2021.? It found that his COLLINS to the LAD and his saphenous vein graft to the RUY/RPL 3 were patent.? Prior stents in the saphenous vein graft were also patent.? He had diffuse [place] disease elsewhere but no targets for intervention.? Continued medical therapy was recommended patient is followed regularly in the cardiology clinic; his last visit was in November. He completed a 5 day course of antibiotics. His vital signs are stable, he has no fever and labs are unremarkable. 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 Discussed with Dr Collazo Home Meds and New Rx's Prescriptions: Continued (DME) OneTouch Ultra Test Strip 1 ea Miscellaneous DAILY Qty: 100 3RF Rx Instructions: e11.9 potassium chloride 10 mEq capsule, extended release 10 meq PO DAILY clopidogrel 75 mg tablet 75 mg PO DAILY Qty: 90 3RF nitroglycerin 0.4 mg tablet, sublingual 0.4 mg sublingual Q5M PRN (Reason: chest pain) Qty: 20 1RF Rx Instructions: do not exceed 3 doses per episode clozapine 25 mg tablet 50 mg PO HS Label Comments: for total of 150mg at bedtime. tamsulosin [Flomax] 0.4 mg capsule 0.4 mg PO DAILY Qty: 90 3RF (DME) blood-glucose meter 1 EACH misc 1 ea Miscellaneous ONCE Qty: 1 Rx Instructions: Dx 250.00 for ONE TOUCH ULTRA MINI GLUCOMETER (DME) blood-glucose meter [OneTouch UltraMini] 1 EACH kit 1 ea Miscellaneous DAILY Qty: 1 clozapine 100 mg tablet 100 mg PO QAM AND QHS (DME) lancets 28 gauge misc 1 ea Miscellaneous DAILY Qty: 100 3RF Rx Instructions: FOR ONE TOUCH ULTRA MINI METER. NO INSULIN. DIAGNOSIS CODE 250.02 budesonide-formoterol [Symbicort] 80-4.5 mcg/actuation HFA aerosol inhaler 2 puff inhalation BID Qty: 1 11RF aspirin [Ecotrin Low Strength] 81 mg tablet,delayed release (DR/EC) 81 mg PO DAILY Qty: 90 3RF metformin 500 mg tablet 500 mg PO BID Qty: 180 3RF metoprolol succinate 50 mg tablet extended release 24 hr 50 mg PO DAILY Qty: 90 4RF multivitamin Tablet 1 tab PO DAILY Qty: 90 3RF (DME) lancets [OneTouch UltraSoft Lancets] Misc 1 ea Miscellaneous DAILY Qty: 100 3RF Rx Instructions: E.11.9 1 device BID as directed (DME) Blood Glucose Test Strip 1 ea Miscellaneous DAILY Qty: 100 4RF Rx Instructions: BID testing. FOR ONE TOUCH ULTRA MINI METER. Entresto 49-51 mg tablet 1 tab PO BID Qty: 180 5RF ferrous sulfate 325 mg (65 mg iron) tablet See Rx Instructions .ROUTE .COMPLEX Qty: 28 11RF Dose Instruction: TAKE 1 TABLET BY MOUTH DAILY Rx Instructions: TAKE 1 TABLET BY MOUTH DAILY docusate sodium [Colace] 100 mg capsule 200 mg PO BID Qty: 360 3RF acetaminophen [Acetaminophen Extra Strength] 500 mg tablet 1,000 mg PO Q6H PRN Qty: 360 1RF Ensure Liquid See Rx Instructions PO .COMPLEX Qty: 5688 12RF Rx Instructions: I can daily PO; CHOCCOLATE ONLY ONE TOLERATED furosemide [Lasix] 20 mg tablet 40 mg PO BID Qty: 360 4RF pantoprazole 40 mg tablet,delayed release (DR/EC) 40 mg PO DAILY Qty: 90 4RF divalproex 250 mg tablet,delayed release (DR/EC) 1,000 mg PO HS albuterol sulfate 90 mcg/actuation HFA aerosol inhaler 2 puff IH QID PRN PRNQty: 18 6RF atorvastatin 80 mg Tablet 80 mg PO HS Discharge Instructions Instructions: Community Acquired Pneumonia (DC), Anemia (DC) Additional Instructions: Home Health will call you to arrange a time to visit you for admission to their services. Stand Alone Forms: Nursing Discharge Form Referrals: Jaja Valdes MD [ [facility] STAFF PHYSICIAN] - 02/12/22 10:40 am () Jesu Bojorquez MD [ [facility] STAFF PHYSICIAN] - 01/30/22 2:20 pm (Patient is unable to manage a 30d cardiac event monitor - he needs a 14 day event monitor which requires a pre auth from PCP, care mgt has notified your office of this. ) Activity:: Activity as Tolerated Equipment/Supplies:: No Equipment Needed Diet:: Carb Counting Discharge Orders Discharge Orders: Discharge Order (Routine); Ordered 01/22/22 Ordered By: Che Chun Discharge Data Discharge Date/Time-TO BE ENTERED AT DEPARTURE: 01/22/22 19:16 DS: Summary Time Spent with Patient providing and/or coordinating discharge services: Greater than 30 minutes Status at Discharge Functional status at discharge: uses cane/walker Overall status at discharge: patient is progressing back to baseline Mental Status: mental status grossly normal Speech and Movement: speech and movement normal Mood: congruent mood Affect: normal affect Exam Const General: cooperative, comfortable, no acute distress and frail appearing Nutritional Appearance: average body habitus Orientation: alert, awake and oriented x3 HENMT Head: normal to inspection, normocephalic and atraumatic Mouth: oral mucosae normal Resp Effort & Inspection: normal respiratory effort Auscultation: diminished lung sounds, no rales and no wheezes Cardio Rate: regular rate Rhythm: regular rhythm GI Inspection: normal to inspection Palpation: soft Auscultation: normal bowel sounds Skin General skin exam: no rashes or lesions noted Neuro General: patient alert, patient awake, patient oriented x3 and no focal motor deficits Cognition: normal cognition Speech: speech normal Gait: normal gait Motor: muscle tone normal throughout Extrem General: normal to inspection, full ROM and no pedal edema Psych Mental Status: mental status grossly normal Speech and Movement: speech and movement normal Mood: congruent mood Affect: normal affect DS: Data Vitals/I&O Vitals and I&O: Vital Signs Temperature 35.1 C L 01/22/22 07:46 Temperature Source Tympanic 01/22/22 07:46 Pulse 76 01/22/22 07:46 Pulse Rhythm Regular 01/22/22 08:59 Pulse 98 H 01/14/22 17:46 Respiratory Rate 16 01/22/22 07:46 Respiratory Effort 01/22/22 08:59 Respiratory Depth Normal 01/22/22 08:59 Respiratory Pattern Normal 01/22/22 08:59 Blood Pressure 112/54 L 01/22/22 07:46 Blood Pressure Mean 59 01/14/22 17:46 Blood Pressure Position Supine 01/14/22 17:11 Pulse Oximetry 93 01/22/22 07:46 Respiratory End-tidal CO2 43 01/14/22 17:46 Oxygen Delivery Method Room Air 01/22/22 07:46 Oxygen Flow Rate 0 01/22/22 07:46 Pain Level 0 01/22/22 07:46 Comment 01/20/22 15:54 Intake & Output 01/21/22 01/21/22 01/22/22 11:59 23:59 11:59 Intake Total 600 / 1080 480 / 1080 800 / 800 Output Total 900 / 2680 1780 / 2680 200 / 200 Balance -300 / -1600 -1300 / -1600 600 / 600 Weight 77.2 kg Intake: Oral 600 / 1080 480 / 1080 800 / 800 Output: Urine 900 / 2680 1780 / 2680 200 / 200 Other: Urine Color Yellow Pale Yellow Yellow Urine Appearance Clear Clear Clear Urine Odor None Voiding Methods Urinal Urinal Urinal PFSH All Active Problems (Updated 01/23/22 @ 00:10 by KENIA ELDER) GERD (gastroesophageal reflux disease) (Chronic) Pneumonia (Acute) Anemia (Chronic) 2021-chronic, mild, history of iron deficiency Type 2 diabetes mellitus with diabetic neuropathy, unspecified (Chronic) Ischemic cardiomyopathy (Chronic) Palliative care patient (Acute) Diabetic foot ulcer (Acute) 08/2021-1:00, longstanding superficial ulceration right lateral malleolus Psoriasis (Chronic) Hematuria (Acute) Total urinary incontinence (Acute 12/02/07) Right leg claudication (Acute 09/06/14) Peripheral neuralgia (Acute 12/02/07) 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 NSTEMI 06/07. EF 40% Threatening behavior (Active 10/23/12) Medical History Anemia (03/11/12) Chronic obstructive lung disease (12/02/07) Coronary atherosclerosis of [place] coronary vessel (12/02/07) s/p CABG 2004 with diminished ejection fraction. Diabetes mellitus periphreal neuropathy of feet Ischemic cardiomyopathy Peripheral vascular disease (12/02/07) bilateral leg claudication. Wants no intervention Schizophrenia (10/19/13) Periods of severe hypomania and agitation Smoker Surgical History Appendectomy Cholecystectomy Colonoscopy - MAC 05/14/12 Coronary Artery Bypass [place] (CABG) 2005 HERNIA REPAIR RIGHT Family History Mother No problems noted. Father Heart disease Brother No problems noted. Social History Smoking/Tobacco Use Status: Current every day Tobacco Type: cigarettes Tobacco: How many years used: 55 Quit status: not considering quitting Counseling given: patient declined Smoking risk assessment performed?: Yes Alcohol Intake: never Drug use: Never Substance use type: does not use Caregiver/Support person: No Household members: none Pets and animals: No Sexually active: No Do you think of yourself as: straight/heterosexual Current gender identity: male What is your relationship status?: How often do you talk on the phone with friends or family?: three or more times per week How often do you attend christianity or christian services?: decline to answer Do you belong to any clubs or organized social groups?: yes Panel score (0-1 are the most socially isolated patients): 2 What type of physical activity do you participate in: none and additional Details: only walks in home. Justa/Scientologist: Episcopalian Seatbelt use: always Drive intox or ride w/intox package car driver: No Do you feel safe at home: Yes Do you feel safe in your relationship?: Yes
[2022-01-22] MEDS: Insulin Aspart 300 UNITS/3 ML PEN SC (12:08)
[2022-01-22] MEDS: Polyethylene Glycol 3350 17 GM PACKET PO (13:35)
[2022-01-22] MEDS: Docusate Sodium 100 MG CAP PO (13:37)
--- NOTE | 2022-01-22 13:44 | PDOC.HHF2F_ITS ---
Home Health Certification Home Health Certification: 1. Encounter Date and Reason I certify that Ryan Beyer was seen by Che Chun NP on 01/22/22 and that I had a [id number] encounter with this patient that meets the physician face to face encounter requirements. 2. Clinical Findings Supporting Skilled Need and Homebound Status I certify that home health services are medically necessary, include either intermittent long term and/or physical/speech therapy, and that this patient is homebound in that absences from the home require considerable and taxing effort and are infrequent or of short duration, or are attributable to the need to receive medical care. [X] (a) Attached documentation from encounter provides clinical findings supporting skilled need and homebound status (including what assistance patient requires to leave the home). The encounter with the patient was in whole, or in part, for the following medical condition, which is the primary reason for home health care: Pneumonia with Hypoxemia Care Home: Skilled observation, assessment and intervention of the patient?s condition including symptom control, vital signs, and information related to disease process; education regarding medication and nutrition with the goal of optimizing his recovery and promoting independence. Physical Therapy: Assess and plan an exercise program to assist Ryan with regaining movement and developing strength, teach safety, energy conservation; perform an evaluation and provide education related to any recommended assistive devices he needs to enhance independence. Occupational Therapy: Assess and teach ability to perform ADL?s, safety. MACHINE MAINTENANCE TECHNICIAN: Assess the full range of social and emotional factors related to chronic disease and help access services and resources to improve his quality of life.? Homebound: Patient is unable to ambulate safely inside without the assistance of a device and without the assistance of a device and at least one person, outside. Absences from home require considerable and taxing effort, are infrequent and of short duration, and are attributable to the need to receive health care. 3. Certification and Authentication I certify that I composed the above information based on my clinical judgment relating to this patient's medical condition and, if applicable, clinical findings communicated to me by the NPP or inpatient physician who performed the Home Health Referral. All further orders will be obtained through [facility]
[2022-01-22 13:54] VITALS: BP 108/59; PULSE 80
[2022-01-22 15:00] VITALS: PULSE 91
[2022-01-22 15:17] VITALS: BP 103/65; PULSE 84; RESP 17; TEMP 36.1; O2SAT 100
--- NOTE | 2022-01-22 19:09 | PDOC.CMDIS ---
- If Service Date Differs Date of service: 01/22/22 Time of Service: 19:09 LACE Index Scoring Tool - Questions: Length of Stay (in days): 7 - 13 Acuity (Admit via E.D.?): Yes Comorbidities: Diabetes w/o Complication, Chronic Pulmonary Disease E.D. Visits: 2 - Answers: Total Score: 13 Risk of Readmission: High Risk Care Management Discharge Reason for Hospitalization: Pneumonia Discharge Plan: Ryan will be discharged home with a resumption of services through [facility] as well as new [facility] services for RN, PT, OT and SHADE CUTTER. He will follow up with his PCP and discharge plan of care as directed and will be transported home by his daughter, Jake, via private vehicle. Patient/Family Education Needs: Review discharge instructions, limitations, medications, and follow up plan of care; discuss Ask Me Three and self management.
== END 2022-01-22 19:16 | disposition home health service (06) | DRG 190 ==
LOC: ER 20:50 → MS 21:49
PROVIDERS: Nurse Practitioner Acute Care; Nurse Practitioner Family; Admitting Provider Family Medicine; Emergency Provider Student in an Organized Health Care Education/Training Program; Visit Provider Student in an Organized Health Care Education/Training Program
DX: J44.0 Chronic obstructive pulmonary disease with (acute) lower respiratory infection (principal); J18.9 Pneumonia, unspecified organism; I47.29 Other ventricular tachycardia; I50.20 Unspecified systolic (congestive) heart failure; E11.9 Type 2 diabetes mellitus without complications; I25.5 Ischemic cardiomyopathy; F20.9 Schizophrenia, unspecified; Z95.1 Presence of aortocoronary bypass graft; Z79.01 Long term (current) use of anticoagulants; Z20.822 Contact with and (suspected) exposure to COVID-19; I44.7 Left bundle-branch block, unspecified; R09.02 Hypoxemia; D50.9 Iron deficiency anemia, unspecified; E11.621 Type 2 diabetes mellitus with foot ulcer; L97.511 Non-pressure chronic ulcer of other part of right foot limited to breakdown of skin; L40.8 Other psoriasis; I25.10 Atherosclerotic heart disease of native coronary artery without angina pectoris; E11.42 Type 2 diabetes mellitus with diabetic polyneuropathy; I73.9 Peripheral vascular disease, unspecified; F17.210 Nicotine dependence, cigarettes, uncomplicated; W19.XXXA Unspecified fall, initial encounter; K21.9 Gastro-esophageal reflux disease without esophagitis; Z91.199 Patient's noncompliance with other medical treatment and regimen due to unspecified reason; F51.01 Primary insomnia; N39.498 Other specified urinary incontinence; R07.89 Other chest pain
CPT/HCPCS: 36415; 80048; 80053; 82805; 84145; 87040; 87637; 93005; 93306; 94618; 94640; 96365; 96367; 97110; 97162; 97530; 99223; 99285; J1650; 71045; 81003; 83735; 83880; 84443; 84484; 85025; 85610; 85730; 86140; 93010; 99232; 99233; 99239; J0696; J3490

== ENCOUNTER 2022-02-12 08:38 | Outpatient (CLI) | payer MEDICARE, MEDICAID, SELFPAY | END 2022-02-12 08:39 | disposition home or self-care (01) | LOC: DI.CARD 08:39 | PROVIDERS: Visit Provider Internal Medicine Cardiovascular Disease | CPT/HCPCS: 93010 ==

== ENCOUNTER → 2022-02-12 10:26 | Outpatient (BNVA) | payer MEDICARE, MEDICAID, SELFPAY | PROVIDERS: Visit Provider Internal Medicine Cardiovascular Disease | DX: I25.10 Atherosclerotic heart disease of native coronary artery without angina pectoris (principal); I25.5 Ischemic cardiomyopathy | CPT/HCPCS: 99214 ==

== ENCOUNTER 2022-02-15 01:50 | Outpatient (CLI) | payer MEDICARE, MEDICAID, SELFPAY ==
[2022-02-15 12:57] LABS: Abs Immature Grans 0.02 10^3/uL (0.0-0.06); Absolute Basophil Count 0.06 10^3/uL (0.0-0.2); Absolute Eosinophil Count 0.18 10^3/uL (0.0-0.7); Absolute Monocyte Count 0.71 10^3/uL (0.1-0.8); Absolute Neutrophil Count 4.06 10^3/uL (1.2-6.7); Eosinophils % 2.9; HCT 35.8 % (40.0-50.0); HGB 11.7 g/dL (13.5-17.5); Immature Grans % 0.3; Lymphocytes % 17.9; MCH 30.5 pg (27.0-33.0); MCHC 32.7 % (32.0-36.0); MCV 93 fL (80-95); MPV 11.5 fL (8.0-11.0); Monocytes % 11.6; Neutrophils % 66.3; Platelet Count 170 10^3/uL (130-400); RBC 3.84 10^6/uL (4.36-5.78); RDW 14.1 % (11.8-14.1); RDW-SD 47.9 fL; WBC 6.13 10^3/uL (4.4-10.8)
== END 2022-02-15 01:51 | disposition home or self-care (01) ==
LOC: LBO 01:50
PROVIDERS: Visit Provider Psychiatry & Neurology Psychiatry
DX: Z79.899 Other long term (current) drug therapy (principal); F20.9 Schizophrenia, unspecified
CPT/HCPCS: 36415; 85025

== ENCOUNTER 2022-03-08 01:26 | Outpatient (CLI) | payer MEDICARE, MEDICAID, SELFPAY ==
[2022-03-08 12:33] LABS: Abs Immature Grans 0.05 10^3/uL (0.0-0.06); Absolute Basophil Count 0.04 10^3/uL (0.0-0.2); Absolute Eosinophil Count 0.16 10^3/uL (0.0-0.7); Absolute Lymphocyte Count 1.26 10^3/uL (1.2-3.4); Absolute Monocyte Count 0.93 10^3/uL (0.1-0.8); Absolute Neutrophil Count 7.58 10^3/uL (1.2-6.7); Basophils % 0.4; Eosinophils % 1.6; HCT 37.9 % (40.0-50.0); HGB 12.1 g/dL (13.5-17.5); Immature Grans % 0.5; Lymphocytes % 12.6; MCHC 31.9 % (32.0-36.0); MCV 94 fL (80-95); Monocytes % 9.3; Neutrophils % 75.6; Platelet Count 260 10^3/uL (130-400); RBC 4.04 10^6/uL (4.36-5.78); RDW-SD 48.6 fL; WBC 10.02 10^3/uL (4.4-10.8)
== END 2022-03-08 01:27 | disposition home or self-care (01) ==
LOC: LBO 01:26
PROVIDERS: PCP Nurse Practitioner Family; Visit Provider Psychiatry & Neurology Psychiatry
DX: F20.9 Schizophrenia, unspecified (principal); Z79.899 Other long term (current) drug therapy
CPT/HCPCS: 36415; 85025

== ENCOUNTER 2022-03-29 01:38 | Outpatient (CLI) | payer MEDICARE, MEDICAID, SELFPAY ==
[2022-03-29 13:46] LABS: Abs Immature Grans 0.04 10^3/uL (0.0-0.06); Absolute Basophil Count 0.06 10^3/uL (0.0-0.2); Absolute Eosinophil Count 0.17 10^3/uL (0.0-0.7); Absolute Lymphocyte Count 1.22 10^3/uL (1.2-3.4); Absolute Monocyte Count 0.76 10^3/uL (0.1-0.8); Absolute Neutrophil Count 5.27 10^3/uL (1.2-6.7); Basophils % 0.8; Eosinophils % 2.3; HCT 37.1 % (40.0-50.0); HGB 11.8 g/dL (13.5-17.5); Immature Grans % 0.5; Lymphocytes % 16.2; MCH 29.7 pg (27.0-33.0); MCHC 31.8 % (32.0-36.0); MCV 94 fL (80-95); MPV 12.1 fL (8.0-11.0); Monocytes % 10.1; Neutrophils % 70.1; Platelet Count 226 10^3/uL (130-400); RBC 3.97 10^6/uL (4.36-5.78); RDW 13.8 % (11.8-14.1); WBC 7.52 10^3/uL (4.4-10.8)
== END 2022-03-29 01:39 | disposition home or self-care (01) ==
LOC: LBO 01:38
PROVIDERS: PCP Nurse Practitioner Family; Visit Provider Psychiatry & Neurology Psychiatry
DX: Z79.899 Other long term (current) drug therapy (principal); F20.9 Schizophrenia, unspecified
CPT/HCPCS: 36415; 85025

== ENCOUNTER 2022-04-19 03:10 | Outpatient (CLI) | payer MEDICARE, MEDICAID, SELFPAY ==
[2022-04-19 12:54] LABS: Abs Immature Grans 0.04 10^3/uL (0.0-0.06); Absolute Basophil Count 0.07 10^3/uL (0.0-0.2); Absolute Eosinophil Count 0.24 10^3/uL (0.0-0.7); Absolute Monocyte Count 0.78 10^3/uL (0.1-0.8); Absolute Neutrophil Count 5.11 10^3/uL (1.2-6.7); Basophils % 0.9; Eosinophils % 3.2; HCT 36.2 % (40.0-50.0); HGB 11.5 g/dL (13.5-17.5); Immature Grans % 0.5; Lymphocytes % 16.1; MCH 29.8 pg (27.0-33.0); MCHC 31.8 % (32.0-36.0); MCV 94 fL (80-95); MPV 11.3 fL (8.0-11.0); Monocytes % 10.5; Neutrophils % 68.8; Platelet Count 189 10^3/uL (130-400); RBC 3.86 10^6/uL (4.36-5.78); RDW 14.1 % (11.8-14.1); RDW-SD 47.9 fL; WBC 7.44 10^3/uL (4.4-10.8)
== END 2022-04-19 03:11 | disposition home or self-care (01) ==
LOC: LBO 03:10
PROVIDERS: PCP Nurse Practitioner Family; Visit Provider Psychiatry & Neurology Psychiatry
DX: F20.9 Schizophrenia, unspecified (principal); Z79.899 Other long term (current) drug therapy
CPT/HCPCS: 36415; 85025

== ENCOUNTER → 2022-05-10 12:48 | Outpatient (BNVA) | payer MEDICARE, MEDICAID, SELFPAY | PROVIDERS: PCP Nurse Practitioner Family; Referring Provider Nurse Practitioner Family; Visit Provider Internal Medicine Cardiovascular Disease | DX: I25.5 Ischemic cardiomyopathy (principal); I25.10 Atherosclerotic heart disease of native coronary artery without angina pectoris; I73.9 Peripheral vascular disease, unspecified; F17.210 Nicotine dependence, cigarettes, uncomplicated | CPT/HCPCS: 99213 ==

== ENCOUNTER 2022-05-14 03:20 | Outpatient (CLI) | payer MEDICARE, MEDICAID, SELFPAY ==
[2022-05-14 12:36] LABS: Abs Immature Grans 0.04 10^3/uL (0.0-0.06); Absolute Basophil Count 0.06 10^3/uL (0.0-0.2); Absolute Eosinophil Count 0.21 10^3/uL (0.0-0.7); Absolute Lymphocyte Count 1.14 10^3/uL (1.2-3.4); Absolute Monocyte Count 0.73 10^3/uL (0.1-0.8); Basophils % 0.8; Eosinophils % 2.8; HCT 37.6 % (40.0-50.0); HGB 12.2 g/dL (13.5-17.5); Immature Grans % 0.5; Lymphocytes % 15.2; MCH 29.9 pg (27.0-33.0); MCHC 32.4 % (32.0-36.0); MCV 92 fL (80-95); MPV 11.2 fL (8.0-11.0); Monocytes % 9.8; Neutrophils % 70.9; Platelet Count 207 10^3/uL (130-400); RBC 4.08 10^6/uL (4.36-5.78); RDW 14.3 % (11.8-14.1); RDW-SD 49.2 fL; WBC 7.48 10^3/uL (4.4-10.8)
== END 2022-05-14 03:21 | disposition home or self-care (01) ==
LOC: LBO 03:20
PROVIDERS: PCP Nurse Practitioner Family; Visit Provider Psychiatry & Neurology Psychiatry
DX: F25.0 Schizoaffective disorder, bipolar type (principal); Z79.899 Other long term (current) drug therapy
CPT/HCPCS: 36415; 85025

== ENCOUNTER 2022-06-07 01:09 | Outpatient (CLI) | payer MEDICARE, MEDICAID, SELFPAY ==
[2022-06-07 12:42] LABS: Abs Immature Grans 0.03 10^3/uL (0.0-0.06); Absolute Basophil Count 0.06 10^3/uL (0.0-0.2); Absolute Eosinophil Count 0.32 10^3/uL (0.0-0.7); Absolute Lymphocyte Count 1.44 10^3/uL (1.2-3.4); Absolute Monocyte Count 0.81 10^3/uL (0.1-0.8); Basophils % 0.8; Eosinophils % 4.1; HCT 38.8 % (40.0-50.0); HGB 12.1 g/dL (13.5-17.5); Immature Grans % 0.4; Lymphocytes % 18.3; MCH 29.5 pg (27.0-33.0); MCHC 31.2 % (32.0-36.0); MCV 95 fL (80-95); MPV 11.3 fL (8.0-11.0); Monocytes % 10.3; Neutrophils % 66.1; Platelet Count 192 10^3/uL (130-400); RDW 14.5 % (11.8-14.1); RDW-SD 50.1 fL; WBC 7.86 10^3/uL (4.4-10.8)
== END 2022-06-07 01:10 | disposition home or self-care (01) ==
LOC: LBO 01:09
PROVIDERS: PCP Nurse Practitioner Family; Visit Provider Psychiatry & Neurology Psychiatry
DX: F20.9 Schizophrenia, unspecified (principal)
CPT/HCPCS: 36415; 85025

== ENCOUNTER 2022-06-28 00:31 | Outpatient (CLI) | payer MEDICARE, MEDICAID, SELFPAY ==
--- NOTE | 2022-06-28 13:20 | DI.RAD_ITS ---
Exam(s) XR LUMBAR SPINE COMPLETE EXAM: XR LUMBAR SPINE COMPLETE CLINICAL HISTORY: low back pain, m54.50. TECHNIQUE: 2D digital imaging was performed of the lumbar spine. Five images were obtained. AP, la teral, right oblique, left oblique and L5-S1 spot views were obtained. COMPARISON: No exams were available for comparison FINDINGS: BONES: No fracture or destructive lesion. There endplate osteophytes seen in the lumbar spine. Degen erative changes of the facets are seen in the lower lumbar spine. DISKS: There is mild narrowing of the T12-L1 and L3-L4 disc spaces. ALIGNMENT: Lumbar spinal alignment is within normal limits. No spondylolysis or spondylolisthesis. SOFT TISSUE: Atherosclerosis is present. IMPRESSION: [id number] degenerative changes in the lumbar spine. DATA REPOSITORY: RADIATION DOSE DELIVERED:
== END 2022-06-28 00:51 ==
LOC: DI 00:31
PROVIDERS: PCP Nurse Practitioner Family; Visit Provider Family Medicine
DX: I73.9 Peripheral vascular disease, unspecified (principal); M47.816 Spondylosis without myelopathy or radiculopathy, lumbar region
CPT/HCPCS: 36415; 72110; 85025

== ENCOUNTER 2022-06-28 02:13 | Outpatient (CLI) | payer MEDICARE, MEDICAID, SELFPAY ==
[2022-06-28 12:42] LABS: Abs Immature Grans 0.03 10^3/uL (0.0-0.06); Absolute Basophil Count 0.07 10^3/uL (0.0-0.2); Absolute Eosinophil Count 0.33 10^3/uL (0.0-0.7); Absolute Lymphocyte Count 1.34 10^3/uL (1.2-3.4); Absolute Monocyte Count 0.78 10^3/uL (0.1-0.8); Absolute Neutrophil Count 5.53 10^3/uL (1.2-6.7); Basophils % 0.9; Eosinophils % 4.1; HCT 36.9 % (40.0-50.0); HGB 11.9 g/dL (13.5-17.5); Immature Grans % 0.4; Lymphocytes % 16.6; MCHC 32.2 % (32.0-36.0); MCV 96 fL (80-95); Monocytes % 9.7; Neutrophils % 68.3; Platelet Count 179 10^3/uL (130-400); RBC 3.84 10^6/uL (4.36-5.78); RDW-SD 52.2 fL; WBC 8.08 10^3/uL (4.4-10.8)
== END 2022-06-28 02:14 | disposition home or self-care (01) ==
LOC: LBO 02:13
PROVIDERS: PCP Nurse Practitioner Family; Visit Provider Psychiatry & Neurology Psychiatry
DX: F20.9 Schizophrenia, unspecified (principal); Z79.899 Other long term (current) drug therapy
CPT/HCPCS: 36415; 85025

== ENCOUNTER → 2022-07-01 14:28 | Outpatient (BNVA) | payer MEDICARE, MEDICAID, SELFPAY | PROVIDERS: PCP Nurse Practitioner Family; Visit Provider Nurse Practitioner Gerontology | DX: R39.89 Other symptoms and signs involving the genitourinary system (principal) | CPT/HCPCS: 51798; 99213 ==

== ENCOUNTER 2022-07-16 01:21 | Outpatient (CLI) | payer MEDICARE, MEDICAID, SELFPAY ==
--- NOTE | 2022-07-16 07:30 | DI.US_ITS ---
Exam(s) US AAA SCREENING EXAM: US AAA SCREENING CLINICAL HISTORY: ? aaa - b/l leg pain,peripheral artery disease,claudication both ext,i73.9 COMPARISON: No exams were available for comparison FINDINGS: Abdominal Aorta: Proximal: Cannot be visualized due to overlying bowel gas. Cm Mid: 2.1 x 2.3 cm Distal: 2.3 x 2.3 cm Iliac's: Right: 1.8 x 1.8 cm Left: 2.1 x 2.2 cm Atherosclerosis is present. IMPRESSION: No evidence of abdominal aortic aneurysm. DATA REPOSITORY:
== END 2022-07-16 01:41 ==
LOC: DI 01:21
PROVIDERS: PCP Nurse Practitioner Family; Visit Provider Family Medicine
DX: I73.89 Other specified peripheral vascular diseases (principal); Z13.6 Encounter for screening for cardiovascular disorders; M79.604 Pain in right leg; M79.605 Pain in left leg
CPT/HCPCS: 76706

== ENCOUNTER 2022-07-19 01:52 | Outpatient (CLI) | payer MEDICARE, MEDICAID, SELFPAY ==
[2022-07-19 12:42] LABS: Abs Immature Grans 0.03 10^3/uL (0.0-0.06); Absolute Basophil Count 0.07 10^3/uL (0.0-0.2); Absolute Eosinophil Count 0.22 10^3/uL (0.0-0.7); Absolute Lymphocyte Count 1.08 10^3/uL (1.2-3.4); Absolute Monocyte Count 0.64 10^3/uL (0.1-0.8); Absolute Neutrophil Count 5.01 10^3/uL (1.2-6.7); Eosinophils % 3.1; HCT 38.4 % (40.0-50.0); HGB 12.2 g/dL (13.5-17.5); Immature Grans % 0.4; Lymphocytes % 15.3; MCH 29.8 pg (27.0-33.0); MCHC 31.8 % (32.0-36.0); MCV 94 fL (80-95); MPV 11.5 fL (8.0-11.0); Monocytes % 9.1; Neutrophils % 71.1; Platelet Count 185 10^3/uL (130-400); RDW 14.2 % (11.8-14.1); RDW-SD 48.9 fL; WBC 7.05 10^3/uL (4.4-10.8)
[2022-07-19 13:14] LABS: VALPROIC ACID 45.9 ug/mL
== END 2022-07-19 01:53 | disposition home or self-care (01) ==
LOC: LBO 01:53
PROVIDERS: PCP Nurse Practitioner Family; Visit Provider Psychiatry & Neurology Psychiatry
DX: F25.0 Schizoaffective disorder, bipolar type (principal); Z79.899 Other long term (current) drug therapy; Z51.81 Encounter for therapeutic drug level monitoring
CPT/HCPCS: 36415; 80164; 85025

== ENCOUNTER 2022-08-09 02:03 | Outpatient (CLI) | payer MEDICARE, MEDICAID, SELFPAY ==
[2022-08-09 12:47] LABS: Abs Immature Grans 0.03 10^3/uL (0.0-0.06); Absolute Basophil Count 0.06 10^3/uL (0.0-0.2); Absolute Eosinophil Count 0.34 10^3/uL (0.0-0.7); Absolute Lymphocyte Count 1.13 10^3/uL (1.2-3.4); Absolute Neutrophil Count 5.33 10^3/uL (1.2-6.7); Basophils % 0.8; Eosinophils % 4.5; HCT 37.3 % (40.0-50.0); HGB 12.1 g/dL (13.5-17.5); Immature Grans % 0.4; Lymphocytes % 14.9; MCH 30.3 pg (27.0-33.0); MCHC 32.4 % (32.0-36.0); MCV 94 fL (80-95); MPV 12.1 fL (8.0-11.0); Monocytes % 9.2; Neutrophils % 70.2; Platelet Count 179 10^3/uL (130-400); RBC 3.99 10^6/uL (4.36-5.78); RDW 13.8 % (11.8-14.1); WBC 7.59 10^3/uL (4.4-10.8)
== END 2022-08-09 02:04 | disposition home or self-care (01) ==
LOC: LBO 02:03
PROVIDERS: PCP Nurse Practitioner Family; Visit Provider Psychiatry & Neurology Psychiatry
DX: Z79.899 Other long term (current) drug therapy (principal)
CPT/HCPCS: 36415; 85025

== ENCOUNTER → 2022-08-27 12:47 | Outpatient (BNVA) | payer MEDICARE, MEDICAID, SELFPAY | PROVIDERS: PCP Nurse Practitioner Family; Referring Provider Nurse Practitioner Family; Visit Provider Internal Medicine Cardiovascular Disease | DX: I73.9 Peripheral vascular disease, unspecified (principal); J44.9 Chronic obstructive pulmonary disease, unspecified; I25.10 Atherosclerotic heart disease of native coronary artery without angina pectoris; I25.5 Ischemic cardiomyopathy | CPT/HCPCS: 99214 ==

== ENCOUNTER 2022-08-30 01:23 | Outpatient (CLI) | payer MEDICARE, MEDICAID, SELFPAY ==
[2022-09-02 12:02] LABS: Abs Immature Grans 0.03 10^3/uL (0.0-0.06); Absolute Basophil Count 0.08 10^3/uL (0.0-0.2); Absolute Eosinophil Count 0.22 10^3/uL (0.0-0.7); Absolute Lymphocyte Count 1.21 10^3/uL (1.2-3.4); Basophils % 1.2; Eosinophils % 3.4; HCT 38.8 % (40.0-50.0); HGB 12.4 g/dL (13.5-17.5); Immature Grans % 0.5; Lymphocytes % 18.8; MCH 30.8 pg (27.0-33.0); MCV 96 fL (80-95); MPV 12.8 fL (8.0-11.0); Monocytes % 9.3; Neutrophils % 66.8; Platelet Count 182 10^3/uL (130-400); RBC 4.03 10^6/uL (4.36-5.78); RDW 13.8 % (11.8-14.1); RDW-SD 48.8 fL; WBC 6.44 10^3/uL (4.4-10.8)
== END 2022-08-30 01:24 | disposition home or self-care (01) ==
LOC: LBO 01:23
PROVIDERS: Counselor Addiction (Substance Use Disorder); PCP Nurse Practitioner Family; Visit Provider Psychiatry & Neurology Psychiatry
DX: F20.9 Schizophrenia, unspecified (principal); Z79.899 Other long term (current) drug therapy
CPT/HCPCS: 85025